=== PATIENT | female | born 1945 | race Caucasian/White ===

== ENCOUNTER 2018-06-16 16:26 | Inpatient (IN) | payer MEDICARE, OTHER ==
[~2018-06-16] VITALS: Ht 160 cm; Wt 91.7 kg
[2018-06-16] MEDS: METOPROLOL TART IMMED RELEASE 50 MG TABLET PO SCH (09:00)
[~2018-06-16 16:26] MED LIST: ACET500T68 PO; APIX5TAB3 PO; ATOR40TA59 PO; BEANO; CALC1TAB PO; CARB1TAB43 PO; DIPH25CA58 PO; DRON400T PO; FAMO10TA69 PO; FLUO25PO MC; INSU100V5 IJ; IPRA4AER IH; METO50TA6 PO; MULT-246 PO; ONDA4TAB12 PO; TRAM50TA PO
[2018-06-16 16:47] VITALS: BP 147/82
[2018-06-16] MEDS ORDERED: GABA-586 PO (17:00)
[2018-06-16] MEDS ORDERED: CYCL5TAB PO (17:00)
[2018-06-16] MEDS ORDERED: FLUT16SP21 NS (17:00)
[2018-06-16] MEDS ORDERED: AMLO5TAB2 PO (17:00)
[2018-06-16] MEDS ORDERED: TOLT2CAP PO (17:00)
[2018-06-16] MEDS ORDERED: FURO20TA3 PO (17:00)
[2018-06-16] MEDS ORDERED: [UNRECOGNIZED DRUG - CODE] PO (17:00)
[2018-06-16] MEDS ORDERED: beano PO (17:00)
[2018-06-16] MEDS ORDERED: ASPI-630 PO (17:00)
[2018-06-16] MEDS ORDERED: FLUO20CA8 PO (17:00)
[2018-06-16] MEDS ORDERED: ROPI1TAB PO (17:32)
[2018-06-16] MEDS ORDERED: ERGO500027 PO (17:32)
[2018-06-16] MEDS ORDERED: OMEG-33 PO (17:37)
[2018-06-16] MEDS ORDERED: INSU100I13 SQ (17:37)
[2018-06-16] MEDS ORDERED: RANI150C PO (17:37)
[2018-06-16] MEDS ORDERED: OMEP40CA5 PO (17:37)
[2018-06-16] MEDS ORDERED: traMADol 50 MG TABLET PO PRN (17:45)
[2018-06-16] MEDS ORDERED: NON FORMULARY ITEM (Ipratropium/Albuterol Sulfate (Combivent Respimat Inhal) 4 GM) IH PRN (17:45)
[2018-06-16] MEDS ORDERED: diphenhydrAMINE HCL 25 MG CAPSULE PO PRN (17:45)
[2018-06-16] MEDS ORDERED: BISMUTH SUBSALICYLATE 262 MG/15 ML ORAL.SUSP 236ML BOTTLE. PO PRN (17:45)
[2018-06-16 17:54] LABS: BASO # 0.1 x10^3/uL (0.0-0.2); BASO % 1 % (0-3); EOS # 0.3 x10^3/uL (0.0-0.7); EOS % 4 % (0-3); HEMATOCRIT 39.7 % (36.0-47.0); HEMOGLOBIN 13.2 g/dL (12.0-15.5); LYMPH # 1.1 x10^3/uL (1.0-4.8); LYMPH % 14 % (24-48); MEAN CORPUSCULAR HEMOGLOBIN 30 pg (25-35); MEAN CORPUSCULAR HGB CONC 33 g/dL (31-37); MEAN CORPUSCULAR VOLUME 91 fL (79-100); MONO # 0.6 x10^3/uL (0.0-1.1); MONO % 8 % (0-9); NEUT # 5.6 x10^3uL (1.8-7.7); NEUT % 73 % (31-73); PLATELET COUNT 335 x10^3/uL (140-400); RED BLOOD COUNT 4.38 x10^6/uL (3.50-5.40); RED CELL DISTRIBUTION WIDTH 14.4 % (11.5-14.5); WHITE BLOOD COUNT 7.6 x10^3/uL (4.0-11.0)
[2018-06-16] MEDS ORDERED: CYCLOBENZAPRINE 10 MG TABLET. PO PRN (18:00)
[2018-06-16] MEDS ORDERED: AZITHROMYCIN 250 MG TABLET. PO ONE (18:00)
[2018-06-16 18:13] LABS: ALBUMIN 3.2 g/dL (3.4-5.0); ALBUMIN/GLOBULIN RATIO 0.8 (1.0-1.7); CREATININE 1.1 mg/dL (0.6-1.0); GFR 48.7; POTASSIUM 4.7 mmol/L (3.5-5.1); TOTAL BILIRUBIN 0.3 mg/dL (0.2-1.0); TOTAL PROTEIN 7.1 g/dL (6.4-8.2)
[2018-06-16] MEDS ORDERED: ONDANSETRON ODT 4 MG TAB.RAPDIS PO PRN (18:15)
[2018-06-16] MEDS ORDERED: DEXTROSE 50% 25 GM / 50ML DISP.SYRIN. IV PRN (18:45)
[2018-06-16] MEDS: IPRATRPIUM/ALBUTEROL 0.5/2.5MG 3 ML NEBU. NEB SCH (20:00)
[2018-06-16 20:19] VITALS: BP 129/77
[2018-06-16 20:30] LABS: BILIRUBIN,URINE NEG (NEG); CLARITY,URINE CLEAR; COLOR,URINE YELLOW; GLUCOSE,URINE NEG (NEG); NITRITE,URINE NEG (NEG); UROBILINOGEN,URINE 0.2 mg/dL (0.2 mg/dL)
[2018-06-16 20:31] LABS: BACTERIA,URINE FEW /HPF (0-FEW); HYALINE CASTS, URINE MANY /HPF; SQUAMOUS EPITHELIAL CELL,UR MANY /LPF
[2018-06-16] MEDS: OMEGA-3 FATTY ACIDS/FISH OIL 1,000 MG CAPSULE. PO SCH (21:43)
[2018-06-16] MEDS: LACTOBACILLUS RHAMNOSUS GG 1 CAPSULE. PO SCH (21:43)
[2018-06-16] MEDS: FAMOTIDINE 20 MG TABLET PO SCH (21:43)
[2018-06-16] MEDS: OXYBUTYNIN CHLORIDE 5 MG TABLET PO SCH (21:43)
[2018-06-16] MEDS: GABAPENTIN 300 MG CAPSULE. PO SCH (21:43)
[2018-06-16] MEDS: ATORVASTATIN CALCIUM 20 MG TABLET PO SCH (21:43)
[2018-06-16] MEDS: rOPINIRole 1 MG TABLET. PO SCH (21:44)
[2018-06-16] MEDS: cefTRIAXone IV Push 1 GM VIAL. IVP SCH (21:46)
[2018-06-16] MEDS: FLUTICASONE 50MCG/NASAL SPRAY 16GM BOTTLE. NS SCH (21:58)
[2018-06-16] MEDS: INSULIN GLARGINE 300 UNITS/3 ML INSULN.PEN. SQ SCH (22:01)
[2018-06-16 23:38] VITALS: BP 118/69
[2018-06-17] MEDS: IPRATRPIUM/ALBUTEROL 0.5/2.5MG 3 ML NEBU. NEB SCH ×4 (05:04→20:43)
[2018-06-17 05:39] VITALS: BP 148/76
[2018-06-17] MEDS ORDERED: INSULIN REGULAR 100 UNIT/ML 3ML VIAL. SQ SCH (07:30)
[2018-06-17] MEDS: PANTOPRAZOLE 40 MG TABLET. PO SCH (08:18)
[2018-06-17] MEDS: ASPIRIN 81 MG TAB.CHEW PO SCH (08:18)
[2018-06-17] MEDS: INSULIN LISPRO 300 UNITS/3 ML INSULN.PEN. SQ SCH ×3 (08:27→17:15)
[2018-06-17] MEDS ORDERED: BEANO PO SCH (09:00)
[2018-06-17] MEDS: OXYBUTYNIN CHLORIDE 5 MG TABLET PO SCH ×3 (09:37→20:30)
[2018-06-17] MEDS: MULTIVITAMIN with MINERAL TABLET. PO SCH (09:37)
[2018-06-17] MEDS: FLUoxetine HCL 20 MG CAPSULE PO SCH (09:37)
[2018-06-17] MEDS: OMEGA-3 FATTY ACIDS/FISH OIL 1,000 MG CAPSULE. PO SCH ×3 (09:37→20:30)
[2018-06-17] MEDS: FLUTICASONE 50MCG/NASAL SPRAY 16GM BOTTLE. NS SCH ×2 (09:37→20:31)
[2018-06-17] MEDS: LACTOBACILLUS RHAMNOSUS GG 1 CAPSULE. PO SCH ×2 (09:37→20:30)
[2018-06-17] MEDS: GABAPENTIN 300 MG CAPSULE. PO SCH ×3 (09:38→20:31)
[2018-06-17] MEDS: amLODIPine BESYLATE 5 MG TABLET PO SCH (09:38)
[2018-06-17] MEDS: METOPROLOL TART IMMED RELEASE 50 MG TABLET PO SCH (09:38)
[2018-06-17] MEDS: methylPREDNISolone SOD SUCC PF 40 MG/ML VIAL. IV SCH ×2 (09:39→20:31)
[2018-06-17] MEDS: AZITHROMYCIN 250 MG TABLET. PO SCH (09:39)
[2018-06-17] MEDS: FUROSEMIDE 20 MG TABLET PO SCH (09:40)
[2018-06-17] MEDS: INSULIN GLARGINE 300 UNITS/3 ML INSULN.PEN. SQ SCH ×2 (09:42→20:38)
[2018-06-17] MEDS: rOPINIRole 1 MG TABLET. PO SCH ×2 (09:42→20:30)
[2018-06-17 10:50] VITALS: BP 127/77
[2018-06-17 14:43] VITALS: BP 114/65
[2018-06-17] MEDS: cefTRIAXone IV Push 1 GM VIAL. IVP SCH (18:31)
[2018-06-17 19:37] VITALS: BP 115/71
[2018-06-17] MEDS: FAMOTIDINE 20 MG TABLET PO SCH (20:30)
[2018-06-17] MEDS: ATORVASTATIN CALCIUM 20 MG TABLET PO SCH (20:30)
[2018-06-17 22:39] VITALS: BP 130/70
--- NOTE | 2018-06-18 01:14 | PN ---
DATE: 06/16/2018 SUBJECTIVE: The patient is resting fairly comfortably, in with acute exacerbation of COPD. The patient otherwise is making good progress overall, says she is breathing a little bit easier than she had. The patient's urine culture is pending as well as a sputum culture. PHYSICAL EXAMINATION: VITAL SIGNS: The patient's blood pressure 114/60, respiratory rate 18, pulse 80, afebrile. NEUROLOGIC: The patient is alert and oriented x 3. Speech fluent, spontaneous, appropriate. Cranial nerves 2-12 are grossly intact. The patient otherwise is continued to be monitored carefully. IMPRESSION: Acute exacerbation of chronic obstructive pulmonary disease, acute respiratory failure with hypoxia. PLAN: Continue with steroids, make further evaluation on her as indicated. LUIS MCKEE MD DR: ERYN/cici JOB#: [id number] / [id number]
[2018-06-18] MEDS: IPRATRPIUM/ALBUTEROL 0.5/2.5MG 3 ML NEBU. NEB SCH (05:48)
[2018-06-18 05:55] VITALS: BP 144/87
[2018-06-18 06:38] LABS: BASO % 0 % (0-3); EOS % 0 % (0-3); HEMATOCRIT 38.8 % (36.0-47.0); HEMOGLOBIN 12.8 g/dL (12.0-15.5); LYMPH # 0.4 x10^3/uL (1.0-4.8); LYMPH % 5 % (24-48); MEAN CORPUSCULAR HEMOGLOBIN 30 pg (25-35); MEAN CORPUSCULAR HGB CONC 33 g/dL (31-37); MEAN CORPUSCULAR VOLUME 92 fL (79-100); MONO # 0.3 x10^3/uL (0.0-1.1); MONO % 3 % (0-9); NEUT # 7.5 x10^3uL (1.8-7.7); NEUT % 92 % (31-73); PLATELET COUNT 285 x10^3/uL (140-400); RED BLOOD COUNT 4.25 x10^6/uL (3.50-5.40); RED CELL DISTRIBUTION WIDTH 14.2 % (11.5-14.5); WHITE BLOOD COUNT 8.2 x10^3/uL (4.0-11.0)
[2018-06-18 06:50] LABS: CALCIUM 8.9 mg/dL (8.5-10.1); CREATININE 1.1 mg/dL (0.6-1.0); GFR 48.7; POTASSIUM 4.8 mmol/L (3.5-5.1)
[2018-06-18] MEDS: GABAPENTIN 300 MG CAPSULE. PO SCH (08:38)
[2018-06-18] MEDS: OMEGA-3 FATTY ACIDS/FISH OIL 1,000 MG CAPSULE. PO SCH (08:38)
[2018-06-18] MEDS: methylPREDNISolone SOD SUCC PF 40 MG/ML VIAL. IV SCH (08:38)
[2018-06-18] MEDS: METOPROLOL TART IMMED RELEASE 50 MG TABLET PO SCH (08:38)
[2018-06-18 08:39] VITALS: BP 144/87
[2018-06-18] MEDS: OXYBUTYNIN CHLORIDE 5 MG TABLET PO SCH (08:39)
[2018-06-18] MEDS: PANTOPRAZOLE 40 MG TABLET. PO SCH (08:39)
[2018-06-18] MEDS: ASPIRIN 81 MG TAB.CHEW PO SCH (08:39)
[2018-06-18] MEDS: FUROSEMIDE 20 MG TABLET PO SCH (08:39)
[2018-06-18] MEDS: FLUoxetine HCL 20 MG CAPSULE PO SCH (08:39)
[2018-06-18] MEDS: LACTOBACILLUS RHAMNOSUS GG 1 CAPSULE. PO SCH (08:39)
[2018-06-18] MEDS: amLODIPine BESYLATE 5 MG TABLET PO SCH (08:39)
[2018-06-18] MEDS: AZITHROMYCIN 250 MG TABLET. PO SCH (08:39)
[2018-06-18] MEDS: MULTIVITAMIN with MINERAL TABLET. PO SCH (08:39)
[2018-06-18] MEDS: rOPINIRole 1 MG TABLET. PO SCH (08:43)
[2018-06-18] MEDS: INSULIN GLARGINE 300 UNITS/3 ML INSULN.PEN. SQ SCH (08:47)
[2018-06-18] MEDS: FLUTICASONE 50MCG/NASAL SPRAY 16GM BOTTLE. NS SCH (08:54)
[2018-06-18] MEDS: INSULIN LISPRO 300 UNITS/3 ML INSULN.PEN. SQ SCH (08:54)
[2018-06-18] MEDS ORDERED: DOXY100T PO (09:48)
[2018-06-18] MEDS ORDERED: IPRA3AMP29 NEB (09:48)
[2018-06-23] MEDS ORDERED: CHOLECALCIFEROL (VITAMIN D3) 50,000 UNIT CAPSULE PO SCH (09:00)
== END 2018-06-18 10:38 | disposition home or self-care (01) | DRG 189 ==
LOC: 1 SOUTH 16:26
PROVIDERS: ADMIT Family Medicine; ATTEND Family Medicine
DX: J96.01 Acute respiratory failure with hypoxia (principal); J44.1 Chronic obstructive pulmonary disease with (acute) exacerbation; J21.8 Acute bronchiolitis due to other specified organisms; J44.0 Chronic obstructive pulmonary disease with (acute) lower respiratory infection; E78.00 Pure hypercholesterolemia, unspecified; E11.9 Type 2 diabetes mellitus without complications; Z79.899 Other long term (current) drug therapy; Z90.49 Acquired absence of other specified parts of digestive tract; Z96.652 Presence of left artificial knee joint; Z82.49 Family history of ischemic heart disease and other diseases of the circulatory system; Z82.3 Family history of stroke
CPT/HCPCS: 36415; 80048; 80053; 81001; 82947; 83605; 85025; 87086; 94640; J0456; J0696; J1815; J2920; J7620

== ENCOUNTER → 2018-10-25 | Outpatient (CLI) | payer MEDICARE, OTHER ==
[~2018-10-25] MED LIST changes: +AMLO5TAB7 PO; +ASPI-630 PO; +CYCL5TAB PO; +DOXY100T PO; +ERGO500027 PO; +FLUO20CA8 PO; +FLUT16SP21 NS; +FURO20TA3 PO; +GABA-586 PO; +INSU100I13 SQ; +IPRA3AMP29 NEB; +OMEG-33 PO; +OMEP40CA5 PO; +RANI150C PO; +ROPI1TAB PO; +TOLT2CAP PO; +[UNRECOGNIZED DRUG - CODE] PO; +beano PO
--- NOTE | 2018-10-25 16:42 | RAD ---
PQRS Compliance Statement: One or more of the following individualized dose reduction techniques were utilized for this examination: 1. Automated exposure control 2. Adjustment of the mA and/or kV according to patient size 3. Use of iterative reconstruction technique CT CHEST WO CONTRAST Clinical Indication: COUGH, ASTHMA, SUSPECTED PNEUMONIA Comparison: None. TECHNIQUE: Helical CT imaging of the chest is performed without IV contrast. Findings: Incidental aberrant right subclavian artery. Atherosclerotic aortic arch. Mitral annular calcification. Coronary artery disease. Cardiac size upper limits of normal. No pericardial effusion. Tiny hiatal hernia. The central airways are patent. There is minimal atelectasis or scarring in the medial right lower lobe. There is also peribronchial thickening. Minimal scarring or atelectasis in the inferior lingula. There are mild groundglass opacities and peribronchial thickening in the basilar left lower lobe posteriorly. There are a few sub-5 mm pulmonary nodules, for example right lower lobe, image 47. There is no pleural effusion. Cholelithiasis. Postsurgical change of the stomach. No acute bone abnormality. IMPRESSION: 1. There is mild bilateral lower lobe bronchitis. There are mild groundglass opacities in the lower lobes that may be atelectasis. There is no consolidative pneumonia. 2. There are a few sub-5 mm pulmonary nodules. Consider noncontrast CT chest follow-up in 12 months per Fleischner Society guidelines. 3. Cholelithiasis. Electronically signed by: Parish Lawler MD (10/25/2018 4:38 PM) [id number]
== END | disposition home or self-care (01) ==
LOC: CT 16:02
PROVIDERS: ATTEND Family Medicine
DX: J45.991 Cough variant asthma (principal); J45.998 Other asthma; K80.20 Calculus of gallbladder without cholecystitis without obstruction; I25.10 Atherosclerotic heart disease of native coronary artery without angina pectoris; I70.0 Atherosclerosis of aorta; R91.8 Other nonspecific abnormal finding of lung field
CPT/HCPCS: 71250

== ENCOUNTER → 2018-11-24 | Outpatient (CLI) | payer MEDICARE, OTHER ==
[~2018-11-24] VITALS: Ht 160 cm; Wt 94.3 kg
[~2018-11-24] MED LIST changes: +SINCALIDE 1.89 MCG in IV NORMAL SALINE 50ML 30 ML IV ONE
--- NOTE | 2018-11-24 10:17 | RAD ---
Examination: CT chest without contrast HISTORY: History of asthma, bronchitis COMPARISON: 10/25/2018 TECHNIQUE: Axial CT images of the chest were performed without contrast. Coronal and sagittal reformats are performed Exposure: One or more of the following individualized dose reduction techniques were utilized for this examination: 1. Automated exposure control 2. Adjustment of the mA and/or kV according to patient size 3. Use of iterative reconstruction technique FINDINGS: The visualized thyroid gland grossly appears unremarkable. The central airways are patent. Moderate aortic atherosclerosis. The ascending aorta measures 3.8 cm in transverse dimension. Aberrant right subclavian artery identified coursing posterior to the esophagus. Mild cardiomegaly. Diffuse coronary artery calcifications. Mitral valve calcifications identified. No radiological significant mediastinal lymphadenopathy is identified. Minimal prominent peribronchial thickening in the bibasilar bronchial branches could be bronchitis. Minimal bibasilar lung airspace opacities likely atelectasis or infiltrates. 5 mm nodule identified in the left lower lobe of the lung is similar to prior exam. Small 5 mm nodule identified in the right lower lobe of the lung again identified. Small hiatal hernia. The visualized noncontrasted liver, spleen, adrenals grossly appears unremarkable. Partially visualized cholelithiasis. Moderate degenerative changes thoracic spine. IMPRESSION: 1. 5 mm pulmonary nodules identified in the right and left lower lobes of the lungs similar to prior exam. 2. Mild peribronchial thickening in the bilateral lower lobe probably bronchitis similar to prior exam. 3. Coronary artery calcifications. 4. Cholelithiasis. Electronically signed by: Dillan [place] MD (11/24/2018 10:13 AM) [facility]
--- NOTE | 2018-11-24 13:24 | RAD ---
Exam performed: Nuclear medicine hepatobiliary scan. History: Right upper quadrant pain, Gastroesophageal reflux with esophagitis COMPARISON: None available Following intravenous administration of 5.3 mCi of Choletec tagged with Tc, sequential gamma camera images of the right upper quadrant of the abdomen were obtained. There is prompt accumulation of radionuclide in the liver which appears to be unremarkable Prompt accumulation in the central intrahepatic biliary radicals, gallbladder, common bile duct and small bowel is noted. Patient was also infused with 1.8mcg of CCK and gallbladder ejection fraction was calculated which measures 41% (normal greater than 35%) Impression: 1. No evidence of cystic duct obstruction. 2. The gallbladder ejection fraction is 41%, which is lower limits of normal. Electronically signed by: Dillan [place] MD (11/24/2018 1:19 PM) [facility]
== END | disposition home or self-care (01) ==
LOC: CT 09:08
PROVIDERS: ATTEND Family Medicine
DX: J45.991 Cough variant asthma (principal); I25.10 Atherosclerotic heart disease of native coronary artery without angina pectoris; K80.20 Calculus of gallbladder without cholecystitis without obstruction; K21.0 Gastro-esophageal reflux disease with esophagitis; K44.9 Diaphragmatic hernia without obstruction or gangrene; I51.7 Cardiomegaly; I70.0 Atherosclerosis of aorta; R91.8 Other nonspecific abnormal finding of lung field
CPT/HCPCS: 71250; 78227; A9537; J2805

== ENCOUNTER → 2018-12-14 | Outpatient (CLI) | payer MEDICARE, OTHER ==
[~2018-12-14] MED LIST changes: -SINCALIDE 1.89 MCG in IV NORMAL SALINE 50ML 30 ML IV ONE
--- NOTE | 2018-12-14 12:13 | RAD ---
EXAM: Lumbar spine, flexion and extension. HISTORY: None. COMPARISON: None. FINDINGS: Lateral flexion and extension views of the lumbar spine are obtained. There is lumbar scoliosis, resulting in projectional endplate depressions at L1 and L2. There is no convincing acute or subacute fracture. There is grade 1 anterolisthesis of L5 on S1 which does not change between flexion and extension. There is degenerative endplate remodeling with anterior spurring throughout the visualized lower thoracic spine and upper lumbar spine. There is facet arthropathy predominantly at the lower lumbar levels. There are surgical clips within the upper abdomen. There is heavily calcified scar plaque within the aorta and iliac bifurcation. IMPRESSION: 1. Grade 1 anterolisthesis of L5 on S1, without significant change between flexion and extension. 2. Lumbar scoliosis. 3. Multilevel degenerative change throughout the thoracic and lumbar spine, described above. There is no convincing acute finding. Electronically signed by: Ginger Maldonado MD (12/14/2018 12:08 PM) [id number]
== END | disposition home or self-care (01) ==
LOC: RAD 11:42
PROVIDERS: ATTEND Anesthesiology Pain Medicine
DX: M41.86 Other forms of scoliosis, lumbar region (principal); M43.17 Spondylolisthesis, lumbosacral region; M47.895 Other spondylosis, thoracolumbar region; I70.0 Atherosclerosis of aorta; M12.88 Other specific arthropathies, not elsewhere classified, other specified site
CPT/HCPCS: 72100

== ENCOUNTER 2019-09-20 14:54 | Observation (INO) | payer MEDICARE, OTHER ==
[~2019-09-20] VITALS: Ht 160 cm; Wt 90.9 kg
[2019-09-20] VITALS (8 sets, daily range): BP systolic 127–182; BP diastolic 55–94
[~2019-09-20 14:54] MED LIST changes: +AMLO5TAB10 PO; -AMLO5TAB7 PO; +OMEP40CA45 PO; -OMEP40CA5 PO
[2019-09-20] MEDS: hydrALAZINE 20 MG/ML VIAL. IV PRN (16:02)
[2019-09-20] MEDS ORDERED: METO-239 PO (17:39)
[2019-09-20] MEDS ORDERED: DOCU-150 PO (17:39)
[2019-09-20] MEDS ORDERED: TORS20TA2 PO (17:39)
[2019-09-20] MEDS ORDERED: MECL25TA3 PO (17:39)
[2019-09-20] MEDS ORDERED: POTA10TA5 PO (17:39)
[2019-09-20] MEDS ORDERED: SIME125T49 PO (17:39)
[2019-09-20] MEDS ORDERED: ZOLP5TAB PO (17:39)
[2019-09-20] MEDS ORDERED: ONDA4TAB12 PO (17:39)
--- NOTE | 2019-09-20 17:55 | PDOC ---
PROVIDER NOTE PROVIDER NOTE PROVIDER NOTE CARDIOLOGY CONSULTATION NOTE: Reason for consultation elevated blood pressure and dyspnea Pleasant 74-year-old woman who coming into the hospital in the setting of elevated blood pressures and dyspnea. She was in her usual state of health and has been getting home health care for various ailments as noted below and due to some recent stressors including the loss of her brother she has been unable to take her medications the last 4 days. Furthermore, she's had some confusion regarding her medications including discrepancy between a antihypertensive losartan and a vasopressor agent such as Midrin which are both on her list. Her home health care nurse had astutely recognized this and actually asked her to stop both medications to find out what her blood pressures would be. Unfortunate, the patient has been under a lot of stress and has been traveling long distances to go to her brother's . She's also been pain related to her knees. Upon arrival to the hospital she was noted to have elevated blood pressure over 200 and admitted for further evaluation and treatment. The patient does appear to have a history of labile blood pressures and also follows up with [facility] cardiology routinely. Past medical history 1. Diastolic heart failure 2. Hypertension 3. Diabetes 4. Dyslipidemia Social history patient is and denies any alcohol or illicit drug use. Family history is noncontributory Allergies to adhesive tape, iodine and diabetic drugs Review systems is negative unless otherwise mentioned above in history of present illness. Medications reviewed and a stockinette in the chart Physical examination The patient appeared well nourished and normally developed. Head exam is unremarkable. No scleral icterus or corneal arcus noted. Neck is without jugular venous distension, thyromegaly, or carotid bruits. Carotid upstrokes are brisk bilaterally. Lungs are clear to auscultation and percussion. Cardiac exam reveals the PMI to be normally sized and situated. Rhythm is regular. First and second heart sounds normal. No murmurs, rubs or gallops. Abdominal exam reveals normal bowel sounds, no masses, no organomegaly and no aortic enlargement. Extremities are nonedematous and both femoral and pedal pulses are normal. Msk: No traumua Neuro: No focal deficits Diagnostic studies: EKG, cardiac enzymes negative Echocardiogram and stress testing from February 2019 are unremarkable. Impression: Labile BP due to neuropathy and stress Acute on chronic diastolic HF RECS: 81-year-old woman with multiple medical problems as noted above presents with exertional dyspnea in the setting of elevated blood pressures. She's had stressful events including the loss of her brother and due to some discrepancy regarding her blood pressure medicines were she was on losartan and midodrine for presumed orthostatic hypertension she was off of both medications over the last 4 days. Currently she is in sinus rhythm with well-controlled blood pressure. Denies any dyspnea. She does have dizziness and gait instability due to related to her knee surgeries and diabetic neuropathy 1. We will initiate her on hydralazine 25 mg 3 times a day in an effort to control her blood pressure a little easier due to her lability. 3 times a day dosing will allow her to take hydralazine as needed. Echocardiogram was grossly unremarkable. Supportive care from a cardiac standpoint. She has stress test earlier this year which did not reveal any significant obstructive pathology. NIMCO DAVID MD Sep 20, 2019 17:55
[2019-09-20] MEDS ORDERED: ZOLPIDEM 5 MG TABLET. PO PRN (19:15)
[2019-09-20] MEDS ORDERED: ONDANSETRON ODT 4 MG TAB.RAPDIS PO PRN (19:15)
[2019-09-20] MEDS ORDERED: MECLIZINE 12.5 MG TABLET. PO PRN (19:45)
[2019-09-20] MEDS: IPRATRPIUM/ALBUTEROL 0.5/2.5MG 3 ML NEBU. NEB SCH (20:00)
[2019-09-20] MEDS: rOPINIRole 1 MG TABLET. PO SCH (20:28)
[2019-09-20] MEDS: OXYBUTYNIN CHLORIDE 5 MG TABLET PO SCH (20:29)
[2019-09-20] MEDS: FLUoxetine HCL 20 MG CAPSULE PO SCH (20:29)
[2019-09-20] MEDS: PANTOPRAZOLE 40 MG TABLET. PO SCH (20:29)
[2019-09-20] MEDS: CYCLOBENZAPRINE 10 MG TABLET. PO SCH (20:29)
[2019-09-20] MEDS: diphenhydrAMINE HCL 25 MG CAPSULE PO SCH (20:29)
[2019-09-20] MEDS: GABAPENTIN 300 MG CAPSULE. PO SCH (20:30)
[2019-09-20] MEDS: traMADol 50 MG TABLET PO SCH (20:30)
[2019-09-20] MEDS: hydrALAZINE 25 MG TABLET PO SCH (20:30)
[2019-09-20] MEDS: SIMETHICONE 80 MG TAB.CHEW PO SCH (20:31)
[2019-09-20] MEDS: INSULIN GLARGINE SYRINGE. SQ SCH (20:47)
[2019-09-20] MEDS ORDERED: NON FORMULARY ITEM (Tolterodine Tartrate (Detrol La) 1 CAP) PO SCH (21:00)
[2019-09-20] MEDS ORDERED: NON FORMULARY ITEM (Ipratropium/Albuterol Sulfate (Combivent Respimat Inhal) 4 GM) IH SCH (21:00)
[2019-09-20] MEDS ORDERED: ATORVASTATIN CALCIUM 20 MG TABLET PO SCH (21:00)
[2019-09-20] MEDS ORDERED: DOCUSATE SODIUM 100 MG CAPSULE PO SCH (21:00)
[2019-09-21] MEDS ORDERED: ACETAMINOPHEN 500 MG TABLET PO PRN (00:15)
[2019-09-21] MEDS: hydrALAZINE 20 MG/ML VIAL. IV PRN (05:54)
[2019-09-21 05:57] VITALS: BP 189/88
[2019-09-21 06:33] VITALS: BP 164/86
[2019-09-21] MEDS ORDERED: ASPIRIN 81 MG TAB.CHEW ONE (07:25)
[2019-09-21] MEDS ORDERED: METOPROLOL SUCC 24HR ER 25 MG TAB.ER.24H. PO ONE (07:28)
[2019-09-21] MEDS ORDERED: TORSEMIDE 20 MG TABLET. ONE (07:28)
[2019-09-21] MEDS ORDERED: MULTIVITAMIN with MINERAL TABLET. ONE (07:29)
[2019-09-21] MEDS ORDERED: OMEGA-3 FATTY ACIDS/FISH OIL 1,000 MG CAPSULE. PO ONE (07:29)
[2019-09-21] MEDS: INSULIN GLARGINE SYRINGE. SQ SCH (07:37)
[2019-09-21] MEDS: traMADol 50 MG TABLET PO SCH (07:38)
[2019-09-21] MEDS: OXYBUTYNIN CHLORIDE 5 MG TABLET PO SCH (07:38)
[2019-09-21] MEDS: PANTOPRAZOLE 40 MG TABLET. PO SCH (07:38)
[2019-09-21] MEDS: FLUoxetine HCL 20 MG CAPSULE PO SCH (07:38)
[2019-09-21] MEDS: diphenhydrAMINE HCL 25 MG CAPSULE PO SCH (07:39)
[2019-09-21] MEDS: GABAPENTIN 300 MG CAPSULE. PO SCH (07:39)
[2019-09-21] MEDS: hydrALAZINE 25 MG TABLET PO SCH ×2 (07:39→13:19)
[2019-09-21] MEDS: CYCLOBENZAPRINE 10 MG TABLET. PO SCH (07:39)
[2019-09-21] MEDS: rOPINIRole 1 MG TABLET. PO SCH (07:39)
[2019-09-21] MEDS: SIMETHICONE 80 MG TAB.CHEW PO SCH (07:40)
[2019-09-21] MEDS ORDERED: POTASSIUM CHLORIDE 10 MEQ TABLET.ER. PO SCH (08:00)
[2019-09-21 08:10] LABS: BASO # 0.1 x10^3/uL (0.0-0.2); BASO % 1 % (0-3); EOS # 0.4 x10^3/uL (0.0-0.7); EOS % 6 % (0-3); HEMATOCRIT 40.5 % (36.0-47.0); HEMOGLOBIN 12.7 g/dL (12.0-15.5); LYMPH # 1.1 x10^3/uL (1.0-4.8); LYMPH % 15 % (24-48); MEAN CORPUSCULAR HEMOGLOBIN 27 pg (25-35); MEAN CORPUSCULAR HGB CONC 31 g/dL (31-37); MEAN CORPUSCULAR VOLUME 86 fL (79-100); MONO # 0.6 x10^3/uL (0.0-1.1); MONO % 9 % (0-9); NEUT # 5.1 x10^3uL (1.8-7.7); NEUT % 69 % (31-73); PLATELET COUNT 304 x10^3/uL (140-400); RED BLOOD COUNT 4.69 x10^6/uL (3.50-5.40); WHITE BLOOD COUNT 7.4 x10^3/uL (4.0-11.0)
--- NOTE | 2019-09-21 08:28 | PDOC ---
CARDIO Progress Notes Date & Time Date of Service DATE: 09/21/19 TIME: 08:26 Time of Evaluation 08:26 Subjective Notes No dizziness, diaphoresis, or chest pain Vitals Vitals Vital Signs Date Time Temp Pulse Resp B/P (MAP) Pulse Ox O2 Delivery O2 Flow Rate FiO2 09/21/19 07:48 Room Air 09/21/19 07:40 170/90 09/21/19 05:57 97.0 79 15 96 Weight Weight [ ] Input and Output I.O. Intake and Output 09/21/19 07:00 Intake Total 940 ml Output Total 150 ml Balance 790 ml Intake Oral 940 ml Output Stool Total 150 ml # Voids 1 Laboratory Labs Laboratory Tests Test 09/20/19 16:59 09/20/19 18:00 09/20/19 20:06 09/21/19 07:33 Glucose (Fingerstick) 217 mg/dL (70-99) 262 mg/dL (70-99) 196 mg/dL (70-99) Troponin I Quantitative < 0.017 ng/mL (0-0.055) Physical Exams HEENT: Neck Supple W Full Motion Chest: Symmetric Lungs: Clear to Auscultation Heart: S1S2, RRR Abdomen: Soft N/T Extremities: No Edema Neurology: alert, oriented, follow commands Assessment Assessment 1. Accelerated HTN; remains elevated 2. Acute on chronic diastolic HF; echo 03/03 with preserved LV systolic function 3. Hypertension 4. Diabetes, II 5. Hyperlipidemia Recommendations orthostatic vital If not orthostatic, resume low-dose losartan. Supportive care May discharge from a CV standpoint Continue outpatient BP monitoring with LOUIS TAYLOR APRN Sep 21, 2019 08:28
[2019-09-21 08:46] LABS: ALBUMIN 3.3 g/dL (3.4-5.0); ALBUMIN/GLOBULIN RATIO 0.9 (1.0-1.7); CALCIUM 9.5 mg/dL (8.5-10.1); GFR 54.1; POTASSIUM 4.6 mmol/L (3.5-5.1); TOTAL BILIRUBIN 0.4 mg/dL (0.2-1.0)
[2019-09-21] MEDS ORDERED: TORSEMIDE 20 MG TABLET. PO SCH (09:00)
[2019-09-21] MEDS ORDERED: OMEGA-3 FATTY ACIDS/FISH OIL 1,000 MG CAPSULE. PO SCH (09:00)
[2019-09-21] MEDS ORDERED: ASPIRIN 81 MG TAB.CHEW PO SCH (09:00)
[2019-09-21] MEDS ORDERED: FLU VAX QS 2019-20 (36MOS+)/PF 0.5 ML SYRINGE. VAX IM ONE (09:00)
[2019-09-21] MEDS ORDERED: METOPROLOL SUCC 24HR ER 25 MG TAB.ER.24H. PO SCH (09:00)
[2019-09-21] MEDS ORDERED: MULTIVITAMIN with MINERAL TABLET. PO SCH (09:00)
[2019-09-21] MEDS ORDERED: HYDR-2868 PO (10:38)
[2019-09-21 11:00] VITALS: BP 142/81
[2019-09-21] MEDS: IPRATRPIUM/ALBUTEROL 0.5/2.5MG 3 ML NEBU. NEB SCH (11:55)
[2019-09-21 13:14] LABS: THYROID STIM HORMONE (TSH) 3.033 uIU/mL (0.358-3.740)
[2019-09-21 13:23] VITALS: BP 164/67
[2019-09-27] MEDS ORDERED: CHOLECALCIFEROL (VITAMIN D3) 50,000 UNIT CAPSULE PO SCH (09:00)
== END 2019-09-21 14:00 | disposition home or self-care (01) ==
LOC: ICU 14:54 → INTOOBSV 14:54
PROVIDERS: ADMIT Family Medicine; ATTEND Family Medicine
DX: I16.0 Hypertensive urgency (principal); R07.89 Other chest pain; I11.0 Hypertensive heart disease with heart failure; I50.33 Acute on chronic diastolic (congestive) heart failure; F41.9 Anxiety disorder, unspecified; I48.91 Unspecified atrial fibrillation; J44.9 Chronic obstructive pulmonary disease, unspecified; I25.10 Atherosclerotic heart disease of native coronary artery without angina pectoris; F32.9 Major depressive disorder, single episode, unspecified; K21.9 Gastro-esophageal reflux disease without esophagitis; I25.2 Old myocardial infarction; E78.5 Hyperlipidemia, unspecified; E11.40 Type 2 diabetes mellitus with diabetic neuropathy, unspecified; M16.11 Unilateral primary osteoarthritis, right hip; M16.12 Unilateral primary osteoarthritis, left hip; E66.9 Obesity, unspecified; G47.30 Sleep apnea, unspecified; Z86.718 Personal history of other venous thrombosis and embolism; Z95.5 Presence of coronary angioplasty implant and graft; Z93.3 Colostomy status; Z93.2 Ileostomy status; Z99.89 Dependence on other enabling machines and devices; Z23 Encounter for immunization; Z90.49 Acquired absence of other specified parts of digestive tract; Z87.891 Personal history of nicotine dependence; Z79.4 Long term (current) use of insulin; Z79.82 Long term (current) use of aspirin; Z79.51 Long term (current) use of inhaled steroids; Z79.899 Other long term (current) drug therapy
CPT/HCPCS: 36415; 80053; 80061; 82947; 84443; 84484; 85025; 90686; 94640; 94760; 96372; 96374; 96376; 97116; 97162; 97166; G0008; G0378; G0379; J0360; J1815; J7620; Q0163; 90471

== ENCOUNTER 2019-11-14 07:25 | Inpatient (IN) | payer MEDICARE, OTHER ==
[2019-11-14] VITALS (11 sets, daily range): BP systolic 109–176; BP diastolic 46–80
[~2019-11-14] VITALS: Ht 160 cm; Wt 90.7 kg
[~2019-11-14 07:25] MED LIST changes: +DOCU-150 PO; +FLUO20CA19 PO; -FLUO20CA8 PO; +HYDR-2868 PO; +MECL-75 PO; +METO-239 PO; +POTA10TA5 PO; +SIME125T49 PO; +TORS20TA2 PO; +ZOLP5TAB PO
[2019-11-14 09:53] LABS: INFLUENZA A PATIENT NEGATIVE (NEGATIVE); INFLUENZA B PATIENT NEGATIVE (NEGATIVE)
--- NOTE | 2019-11-14 09:56 | NUR ---
Pt direct admit from [facility] of Dr Cummins. Pt brought to icu rm 4 via gurney accompanied by ems. Pt belongings checked, head to toe and vitals assessed. Unit routines given to pt.
[2019-11-14] MEDS ORDERED: MIDO5TAB4 PO (10:29)
[2019-11-14] MEDS ORDERED: LOSA50TA86 PO (10:29)
[2019-11-14] MEDS ORDERED: ONDANSETRON ODT 4 MG TAB.RAPDIS PO PRN (10:45)
[2019-11-14] MEDS ORDERED: ZOLPIDEM 5 MG TABLET. PO PRN ×2 (10:45→21:15)
[2019-11-14] MEDS: GABAPENTIN 300 MG CAPSULE. PO SCH ×2 (11:13→20:43)
[2019-11-14] MEDS: ASPIRIN 81 MG TAB.CHEW PO SCH (11:13)
[2019-11-14] MEDS: CYCLOBENZAPRINE 10 MG TABLET. PO SCH ×2 (11:13→20:45)
[2019-11-14] MEDS: diphenhydrAMINE HCL 25 MG CAPSULE PO SCH ×2 (11:14→20:45)
[2019-11-14] MEDS: LOSARTAN 50 MG TABLET. PO SCH (11:14)
[2019-11-14] MEDS: rOPINIRole 1 MG TABLET. PO SCH ×2 (11:14→20:44)
[2019-11-14] MEDS: MIDODRINE 5 MG TABLET PO SCH ×2 (11:14→18:39)
[2019-11-14] MEDS ORDERED: MECLIZINE 12.5 MG TABLET. PO PRN (11:15)
[2019-11-14] MEDS: TORSEMIDE 20 MG TABLET. PO SCH (11:15)
[2019-11-14] MEDS: traMADol 50 MG TABLET PO SCH ×2 (11:15→20:44)
[2019-11-14] MEDS ORDERED: POTASSIUM CHLORIDE 10 MEQ TABLET.ER. PO SCH (11:15)
--- NOTE | 2019-11-14 12:02 | RAD ---
EXAM: Chest, single view. HISTORY: Elevated d-dimer. COMPARISON: 11/24/2018 FINDINGS: A frontal view of the chest is obtained. There is right greater than left central predominant interstitial and alveolar infiltrate. There is no pleural effusion or pneumothorax. There is a stable prominent cardiac silhouette. There is severe degenerative change involving the right shoulder with an associated chronic right rotator cuff tear. IMPRESSION: 1. Diffuse right greater than left central predominant interstitial and alveolar infiltrate. 2. Prominent cardiac silhouette. Electronically signed by: Ginger Maldonado MD (11/14/2019 11:59 AM) [place] [id number]
[2019-11-14] MEDS: IPRATRPIUM/ALBUTEROL 0.5/2.5MG 3 ML NEBU. NEB SCH ×3 (12:04→20:00)
[2019-11-14] MEDS: MULTIVITAMIN with MINERAL TABLET. PO SCH (12:22)
[2019-11-14] MEDS: FLUoxetine HCL 20 MG CAPSULE PO SCH ×2 (12:22→20:44)
[2019-11-14] MEDS: OMEGA-3 FATTY ACIDS/FISH OIL 1,000 MG CAPSULE. PO SCH (12:23)
[2019-11-14] MEDS: SIMETHICONE 80 MG TAB.CHEW PO SCH ×2 (12:23→20:44)
[2019-11-14] MEDS: PANTOPRAZOLE 40 MG TABLET. PO SCH ×2 (12:23→20:44)
[2019-11-14] MEDS ORDERED: DEXTROSE 50% 25 GM / 50ML DISP.SYRIN. IV PRN (13:15)
[2019-11-14 13:37] LABS: CALCIUM 8.2 mg/dL (8.5-10.1); CREATININE 1.2 mg/dL (0.6-1.0); GFR 43.8; POTASSIUM 3.8 mmol/L (3.5-5.1)
--- NOTE | 2019-11-14 15:11 | RAD ---
Examination: LUNG VENT/PERFUSION SCAN(VQ) History: Elevated d-dimer, shortness of breath Comparison/Correlation: 11/14/2019 AP view of the chest Findings: The 11.4 mCi xenon-133 gas was administered for ventilation imaging. Imaging in the anterior and posterior projections was performed. Delayed washout of radiotracer compatible with COPD is present. Diminished ventilation at the left lung base is noted. suspicious corresponding finding on x-ray exam. 5.5 mCi technetium 99m MAA was intravenously administered for purposes of perfusion imaging. Imaging was performed in 8 projections. Diminished perfusion of the left lung base also seen compatible with matched defect. No Segmental perfusion defects involving the right lung on the GUTIERREZ projection are present. Notably diminished perfusion is suggested at the right lung base in the RPO projection. Impression: Mismatch defects at the right lung base. High probability for pulmonary embolism. COPD. On 11/14/2019 at 3:05 PM, results were reported to the patient's nurse Michell. Electronically signed by: Jluis Odom MD (11/14/2019 3:09 PM) [facility]
[2019-11-14] MEDS: OXYBUTYNIN CHLORIDE 5 MG TABLET PO SCH ×2 (16:02→20:45)
[2019-11-14] MEDS: ENOXAPARIN ** NOTE DOSE ** SYRINGE SQ SCH (16:02)
[2019-11-14] MEDS: INSULIN LISPRO 300 UNITS/3 ML VIAL. SQ SCH (18:43)
[2019-11-14] MEDS ORDERED: VANCOMYCIN PER PHARMACY MC PRN (19:00)
[2019-11-14] MEDS ORDERED: PIP/TAZO PER PHARMACY MC PRN (19:00)
[2019-11-14] MEDS ORDERED: VANCOMYCIN 2 GM in IV NORMAL SALINE 500ML 500 ML IV ONE (20:30)
[2019-11-14] MEDS: INSULIN GLARGINE SYRINGE. SQ SCH (20:45)
[2019-11-14] MEDS ORDERED: NON FORMULARY ITEM (Ipratropium/Albuterol Sulfate (Combivent Respimat Inhal) 4 GM) IH SCH (21:00)
[2019-11-14] MEDS ORDERED: ATORVASTATIN CALCIUM 20 MG TABLET PO SCH (21:00)
[2019-11-14] MEDS ORDERED: DOCUSATE SODIUM 100 MG CAPSULE PO SCH (21:00)
[2019-11-14] MEDS: PIPERACILLIN/TAZOBACTAM 3.375 GM in IV NORMAL SALINE 50ML 50 ML IV SCH (21:32)
[2019-11-15] VITALS (10 sets, daily range): BP systolic 109–171; BP diastolic 46–97
--- NOTE | 2019-11-15 02:56 | NUR ---
Pharmacy Vancomycin Dosing Note S:Consulted to monitor and dose vancomycin started 11/14/19. O:ONEYDA BOURGEOIS is a 74 year old F with Pneumonia, . Height: 5 feet, 3 inches Weight: 90.778445 kg [place] Body Weight: 52.40 Adjusted Body Weight: 67.44 Dosing Weight: Actual Other Antibiotics: ZOSYN LABS: Last BUN: 19 Last Creatinine: 1.2 Creatinine Clearance: 43 Last WBC: Last Procalcitonin: Tmax (past 24 hours): Microbiology: I/O: Drug Levels: Last level: on at Last dose given 11/14/19 at 2200 Vancomycin Dosing: Loading Dose: 2000 mg x1 Dosing Weight: Actual Target Trough: 15-20 A: Based on: WT AND CRCL P: 1. Begin Vancomycin 1250 mg IV q24h 2. Follow up Trough level on 11/16/19 at 2130 3. Pharmacy will continue to monitor, follow and adjust therapy as needed. RICHIE DIAZ RPH, 11/15/19 0256 Signed: 11/15/19 at 0256 by RICHIE DIAZ RPH PHA
[2019-11-15] MEDS: PIPERACILLIN/TAZOBACTAM 3.375 GM in IV NORMAL SALINE 50ML 50 ML IV SCH ×2 (05:29→13:25)
[2019-11-15] MEDS: IPRATRPIUM/ALBUTEROL 0.5/2.5MG 3 ML NEBU. NEB SCH ×2 (05:33→09:05)
[2019-11-15] MEDS: OMEGA-3 FATTY ACIDS/FISH OIL 1,000 MG CAPSULE. PO SCH (08:08)
[2019-11-15] MEDS: MULTIVITAMIN with MINERAL TABLET. PO SCH (08:08)
[2019-11-15] MEDS: traMADol 50 MG TABLET PO SCH (08:09)
[2019-11-15] MEDS: ASPIRIN 81 MG TAB.CHEW PO SCH (08:09)
[2019-11-15] MEDS: TORSEMIDE 20 MG TABLET. PO SCH (08:09)
[2019-11-15] MEDS: PANTOPRAZOLE 40 MG TABLET. PO SCH (08:10)
[2019-11-15] MEDS: SIMETHICONE 80 MG TAB.CHEW PO SCH (08:10)
[2019-11-15] MEDS: CYCLOBENZAPRINE 10 MG TABLET. PO SCH (08:10)
[2019-11-15] MEDS: diphenhydrAMINE HCL 25 MG CAPSULE PO SCH (08:10)
[2019-11-15] MEDS: FLUoxetine HCL 20 MG CAPSULE PO SCH (08:10)
[2019-11-15] MEDS: OXYBUTYNIN CHLORIDE 5 MG TABLET PO SCH ×2 (08:10→13:30)
[2019-11-15] MEDS: LOSARTAN 50 MG TABLET. PO SCH (08:11)
[2019-11-15] MEDS: GABAPENTIN 300 MG CAPSULE. PO SCH (08:11)
[2019-11-15] MEDS: MIDODRINE 5 MG TABLET PO SCH (08:11)
[2019-11-15] MEDS: ENOXAPARIN ** NOTE DOSE ** SYRINGE SQ SCH (08:12)
[2019-11-15] MEDS: INSULIN LISPRO 300 UNITS/3 ML VIAL. SQ SCH (08:19)
[2019-11-15] MEDS: rOPINIRole 1 MG TABLET. PO SCH (09:00)
--- NOTE | 2019-11-15 09:11 | NUR ---
PT dyspnic on assessment this am. Pt 90% on 5 L NC. When pt falls asleep O2 drops to 85%. PT very coarse throughout, no baseline ABG, will obtain and assess need for more aggressive type of ventilation, bipap. Pt is able to verbalize understanding of poc at this time, pt did not eat breakfast. at bedside. Champ DILLARD
[2019-11-15 09:18] LABS: BGAS PH 7.36 (7.35-7.45)
[2019-11-15] MEDS ORDERED: ACETAMINOPHEN 500 MG TABLET PO PRN (10:00)
[2019-11-15] MEDS ORDERED: DEXTROSE 50% 25 GM / 50ML DISP.SYRIN. IV PRN (10:15)
[2019-11-15 10:28] LABS: BASO % 0 % (0-3); EOS % 0 % (0-3); HEMATOCRIT 28.8 % (36.0-47.0); HEMOGLOBIN 9.2 g/dL (12.0-15.5); LYMPH # 0.3 x10^3/uL (1.0-4.8); LYMPH % 6 % (24-48); MEAN CORPUSCULAR HEMOGLOBIN 27 pg (25-35); MEAN CORPUSCULAR HGB CONC 32 g/dL (31-37); MEAN CORPUSCULAR VOLUME 84 fL (79-100); MONO # 0.4 x10^3/uL (0.0-1.1); MONO % 7 % (0-9); NEUT % 87 % (31-73); PLATELET COUNT 272 x10^3/uL (140-400); RED BLOOD COUNT 3.45 x10^6/uL (3.50-5.40); RED CELL DISTRIBUTION WIDTH 16.4 % (11.5-14.5); WHITE BLOOD COUNT 5.8 x10^3/uL (4.0-11.0)
[2019-11-15] MEDS: INSULIN GLARGINE SYRINGE. SQ SCH (10:42)
[2019-11-15 10:48] LABS: ALBUMIN 2.2 g/dL (3.4-5.0); ALBUMIN/GLOBULIN RATIO 0.6 (1.0-1.7); CALCIUM 8.2 mg/dL (8.5-10.1); CREATININE 1.1 mg/dL (0.6-1.0); GFR 48.4; POTASSIUM 3.8 mmol/L (3.5-5.1); TOTAL BILIRUBIN 0.3 mg/dL (0.2-1.0)
--- NOTE | 2019-11-15 11:12 | PN ---
DATE: SUBJECTIVE: A 74-year-old female, brought in yesterday through the [facility] because of increased shortness of breath and dyspnea. The patient was noted over here to have a positive V/Q scan with a high probability of pulmonary emboli. The patient was breathing in the 70 percentile, although with 4 liters, she is up in the 90%. The patient is feeling a little better this morning, although she still has problems with sleep apnea. She desaturated during the night, she did not bring her CPAP and apparently she does not where it is. Her lactic acid was also elevated and this presents another problem for her, and she did have an infiltrative process in her lungs and she is presently on vancomycin and piperacillin, and she was in the hospital here 2-3 weeks ago and somewhere else for some issues. So, she is on that, she is feeling a little bit better overall, discussed with the . OBJECTIVE: VITAL SIGNS: Blood pressure 170/78, respiratory rate 24, pulse 105, a low-grade temperature of 99.1, oxygen saturation 94 on 4. GENERAL: The patient is alert and oriented. LUNGS: Diminished, primarily in the right lung base. CARDIOVASCULAR: Regular sinus rhythm, tachycardic. ABDOMEN: Protuberant, soft, nontender. Multiple hernias noted. EXTREMITIES: No clubbing, cyanosis, nor edema. NEUROLOGIC: The patient was alert and oriented x 3. HOSPITAL COURSE: The patient's lactic acid has come down to 2.1. Blood sugars elevated, sliding scale and like there. Otherwise, the patient will continue to be monitored and continue on IV antibiotic therapy. IMPRESSION: Pneumonia of unspecified etiology, possibly institutional approached, acute respiratory failure, pulmonary emboli of the right lung, obesity. The patient is continued to be monitored carefully, make further evaluation on her as indicated per those results. Impression is acute respiratory failure, pneumonia, positive D-dimer with pulmonary emboli. LUIS MCKEE MD DR: ERYN/cici JOB#: [id number] / [id number]
[2019-11-15] MEDS ORDERED: INSULIN LISPRO 300 UNITS/3 ML VIAL. SQ SCH (12:00)
--- NOTE | 2019-11-15 12:13 | RAD ---
VENOUS LOWER EXT BILATERAL 11/15/2019 9:57 AM Clinical Information: History of pulmonary wasn't. Comparison: None. Technique: Multiple grayscale, color Doppler, and spectral Doppler sonographic images of the lower extremity venous structures were obtained. Findings: The right common femoral, femoral, and popliteal veins exhibit normal compression, respiratory phasicity, and augmentation. No intraluminal thrombi are identified. Color Doppler flow is demonstrated in the right posterior tibial veins. The left common femoral, femoral, and popliteal veins exhibit normal compression, respiratory phasicity, and augmentation. No intraluminal thrombi are identified. Color Doppler flow is demonstrated in the left posterior tibial veins. Greater saphenous veins are patent at the saphenofemoral junction. Impression: 1. No evidence of deep venous thrombosis. Electronically signed by: Maria Elena Rodas MD (11/15/2019 12:10 PM) [facility]
--- NOTE | 2019-11-15 12:19 | RAD ---
CHEST AP ONLY 11/15/2019 9:57 AM INDICATION: Shortness of air COMPARISON: 11/14/2019 TECHNIQUE: Portable frontal view of the chest is provided. FINDINGS: The cardiomediastinal silhouette is similar in appearance. There is increased alveolar airspace disease at the right lung base. Patchy interstitial opacities are noted at the left lung base. No pneumothorax. There may be trace left pleural effusion. Mild pulmonary vascular congestion. IMPRESSION: Worsened aeration of the lung bases. Findings may represent progression of multifocal pneumonia. Electronically signed by: Maria Elena Rodas MD (11/15/2019 12:16 PM) [facility]
--- NOTE | 2019-11-15 13:36 | NUR ---
PT more lethargic and barely arousable. Xray shows worsening multifocal pneumonia Dr Notified, RT notified will try bipap for apnea and see if improvement. Vitals all stable at this time, however, pt is on high level of O2 B Plunkett Rn
[2019-11-15] MEDS ORDERED: BUMETANIDE 1 MG/4 ML VIAL. IVP SCH (14:00)
--- NOTE | 2019-11-15 15:00 | NUR ---
Awaiting EMS arrival. PT going to [facility] room 111. Report given to JUDITH DILLARD. Champ DILLARD
--- NOTE | 2019-11-15 15:03 | NUR ---
After talking with Dr Cummins about the declining of patient he recommends transferring to [facility] ICU with pulmonology consult. Pt hesitant because pt was at [facility], however, due to pt condition she needs to go to facility closest and Dr freeman has accepted. PT placed on Bipap and ABG being repeated at this time. Pt barely responding to sternal rub. Karen DILLARD
--- NOTE | 2019-11-15 15:45 | NUR ---
Pt left via EMS on Cpap. Report given to bryson with EMS. PT is arousable and maintaining sats at 94%. Karen DILLARD
[2019-11-15 15:47] LABS: BGAS PH 7.37 (7.35-7.45)
[2019-11-15] MEDS ORDERED: PIPERACILLIN/TAZOBACTAM 3.375 GM in IV NORMAL SALINE 50ML 50 ML IV SCH (20:00)
[2019-11-15] MEDS ORDERED: LACTOBACILLUS RHAMNOSUS GG 1 CAPSULE. PO SCH (21:00)
[2019-11-15] MEDS ORDERED: VANCOMYCIN 1.25 GM in IV NORMAL SALINE 250ML 250 ML IV SCH (22:00)
[2019-11-21] MEDS ORDERED: CHOLECALCIFEROL (VITAMIN D3) 50,000 UNIT CAPSULE PO SCH (09:00)
--- NOTE | 2019-11-22 12:32 | DS ---
DATE OF DISCHARGE: 11/15/2019 HOSPITAL COURSE: The patient is a 74-year-old female came in through the [facility] originally and then was transferred over here because they could not do a V/Q scan. The patient was found to have a large pulmonary emboli as well as pneumonia of unspecified etiology. The patient was placed on IV antibiotic therapy and also anticoagulation therapy. The patient went into some respiratory distress and may have required intubation and so as a result of that, the patient was transferred to [facility] for further pulmonary consultation. ICU status upgrade from this facility. IMPRESSION: Acute respiratory failure, pneumonia of unspecified etiology, pulmonary emboli of the right lung, morbid obesity, multiple abdominal hernias, gastroparesis, ileostomy, history of appendectomy, atrial fibrillation. PLAN: The patient transferred via EMS to that facility at [place]. LUIS MCKEE MD DR: ERYN/cici JOB#: [id number] / [id number]
== END 2019-11-15 15:45 | disposition short-term general hospital (02) | DRG 177 ==
LOC: ICU 08:58 → INTOOBSV 08:58 → OBSVTOIN 09:42
PROVIDERS: ADMIT Family Medicine; ATTEND Family Medicine
PROC: 5A09357 Assistance with Respiratory Ventilation, Less than 24 Consecutive Hours, Continuous Positive Airway Pressure (ICD-10-PCS; principal; 2019-11-14)
DX: J15.6 Pneumonia due to other Gram-negative bacteria (principal); I26.99 Other pulmonary embolism without acute cor pulmonale; J96.00 Acute respiratory failure, unspecified whether with hypoxia or hypercapnia; K31.84 Gastroparesis; J15.9 Unspecified bacterial pneumonia; G47.30 Sleep apnea, unspecified; E66.01 Morbid (severe) obesity due to excess calories; Z68.35 Body mass index [BMI] 35.0-35.9, adult; Z90.89 Acquired absence of other organs; I48.91 Unspecified atrial fibrillation
CPT/HCPCS: 36415; 71045; 78582; 80048; 80053; 82550; 82803; 82947; 83605; 83880; 84484; 85025; 86713; 86738; 87804; 93970; 94640; 96374; A9540; A9558; G0379; J1650; J1815; J2543; J3370; J3490; J7040; J7620; Q0163

== ENCOUNTER → 2020-07-08 | Outpatient (CLI) | payer MEDICARE, OTHER ==
[2019-11-15 15:43] VITALS: BP 122/58
[~2020-07-08] MED LIST changes: -FLUO20CA19 PO; +FLUO20CA20 PO; +LOSA50TA86 PO; +MIDO5TAB4 PO
--- NOTE | 2020-07-08 11:50 | RAD ---
INDICATION : Reason: RUQ/RT FLANK PAIN, DM, HYPERGLYCEMIA / Spl. Instructions: / History: COMPARISON: None TECHNIQUE: Multiple ultrasound images obtained through the abdomen in grayscale and color. FINDINGS: Liver: Echogenic Gallbladder: Gallstones are visualized. IVC: Partially distended at level of liver. Common Bile Duct: Not dilated. Pancreas: Largely obscured by bowel gas. Right Kidney: Mild hydronephrosis. IMPRESSION: * Gallstone is visualized without gallbladder wall thickening or common bile duct dilation. * Mild right-sided hydronephrosis. Electronically signed by: Jayden Israel MD (07/08/2020 11:46 AM) [id number]
== END | disposition home or self-care (01) ==
LOC: US 09:07
PROVIDERS: ATTEND Family Medicine
DX: K80.20 Calculus of gallbladder without cholecystitis without obstruction (principal); K76.89 Other specified diseases of liver; N13.30 Unspecified hydronephrosis; E11.65 Type 2 diabetes mellitus with hyperglycemia
CPT/HCPCS: 76705

== ENCOUNTER 2020-09-03 20:39 | Emergency (ER) | payer MEDICARE, OTHER ==
[~2020-09-03] VITALS: Ht 160 cm; Wt 95.4 kg
[~2020-09-03 20:39] MED LIST changes: +AMLO-186 PO; -AMLO5TAB10 PO; +[UNRECOGNIZED DRUG - CODE] PO; -[UNRECOGNIZED DRUG - CODE] PO
[2020-09-03] MEDS ORDERED: IV NORMAL SALINE 1,000ML 1,000 ML IV SCH (21:04)
--- NOTE | 2020-09-03 21:20 | PHYS DOC ---
Past History Past Medical History: CAD, Depression, Diabetes, GI Bleed, High Cholesterol, Heart Disease, Hypertension Additional Past Medical Histor: crohns Past Surgical History: Colectomy Additional Past Surgical Histo: ileostomy, cardiac cath, stents placed, hernia repair Alcohol Use: None Adult General Chief Complaint Chief Complaint: HEMATEMESIS/VOMITING BLOOD HPI HPI Patient is a 75-year-old female who presents for hematemesis. Onset was approximately 2 hours prior to arrival without any known inciting event, ingestion or trauma. Nothing known makes better or worse. Patient reports mild nausea without any other symptoms. Patient cites extensive past medical history most remarkable for history of Crohn's disease with significant large intestine removal and ileostomy. She has history of GI bleed in the past. Her most recent EGD was approximately 1 year ago per patient for similar symptomology and was grossly unremarkable. She denies any history of varices or any invasive intervention such as banding etc. She does not drink alcohol, has not had any bouts of vomiting or retching prior to this evening's episode, she does admit to taking aspirin daily Review of Systems Review of Systems Fourteen body systems of review of systems have been reviewed. See HPI for pertinent positives and negative responses, other diop all other systems are negative, non-pertinent or non-contributory Current Medications Current Medications Current Medications Medications (Trade) Dose Ordered Sig/Sam Start Time Stop Time Status Last Admin Dose Admin Pantoprazole Sodium (Protonix Vial) 40 mg 1X ONCE 09/03/20 21:30 09/03/20 21:31 Sodium Chloride 1,000 ml @ 1,000 mls/hr Q1H 09/03/20 21:04 09/03/20 22:03 Allergies Allergies Allergies Coded Allergies Type Severity Reaction Last Updated Verified liraglutide Allergy Severe 09/20/19 Yes adhesive tape Allergy Intermediate 09/20/19 Yes iodine Allergy Mild Hives 04/25/14 No Physical Exam Physical Exam Constitutional: Well developed, well nourished, no acute distress, non-toxic appearance. HENT: Normocephalic, atraumatic, bilateral external ears normal, oropharynx m oist, no oral exudates, nose normal. Eyes: PERRLA, EOMI, conjunctiva normal, no discharge. Neck: Normal range of motion, no tenderness, supple, no stridor. Cardiovascular: Heart rate tachycardic, sinus rhythm, no murmurs rubs or gallops Lungs & Thorax: Bilateral breath sounds clear to auscultation Abdomen: Bowel sounds normal, soft, no tenderness, no masses, no pulsatile mas ses. Well-appearing ostomy left of midline without any skin breakdown, no obvious blood in ostomy bag. Nonsurgical abdomen, no peritoneal signs Skin: Warm, dry, no erythema, no rash. Back: No tenderness, no CVA tenderness. Extremities: No tenderness, no cyanosis, no clubbing, ROM intact, no edema. Neurologic: Alert and oriented X 3, grossly normal motor & sensory function, no focal deficits noted. Psychologic: Affect normal, judgement normal, mood normal. Current Patient Data Vital Signs Vital Signs Date Time Temp Pulse Resp B/P (MAP) Pulse Ox O2 Delivery O2 Flow Rate FiO2 09/03/20 21:00 97.6 107 16 166/115 (132) 99 Room Air Lab Results Laboratory Tests Test 09/03/20 20:49 09/03/20 20:50 09/03/20 21:40 Glucose (Fingerstick) 238 mg/dL (70-99) White Blood Count 9.0 x10^3/uL (4.0-11.0) Red Blood Count 5.18 x10^6/uL (3.50-5.40) Hemoglobin 13.5 g/dL (12.0-15.5) Hematocrit 43.5 % (36.0-47.0) Mean Corpuscular Volume 84 fL (79-100) Mean Corpuscular Hemoglobin 26 pg (25-35) Mean Corpuscular Hemoglobin Concent 31 g/dL (31-37) Red Cell Distribution Width 17.6 % (11.5-14.5) Platelet Count 372 x10^3/uL (140-400) Neutrophils (%) (Auto) 89 % (31-73) Lymphocytes (%) (Auto) 6 % (24-48) Monocytes (%) (Auto) 4 % (0-9) Eosinophils (%) (Auto) 0 % (0-3) Basophils (%) (Auto) 1 % (0-3) Neutrophils # (Auto) 8.0 x10^3uL (1.8-7.7) Lymphocytes # (Auto) 0.6 x10^3/uL (1.0-4.8) Monocytes # (Auto) 0.4 x10^3/uL (0.0-1.1) Eosinophils # (Auto) 0.0 x10^3/uL (0.0-0.7) Basophils # (Auto) 0.1 x10^3/uL (0.0-0.2) Sodium Level 136 mmol/L (136-145) Potassium Level 4.5 mmol/L (3.5-5.1) Chloride Level 98 mmol/L (98-107) Carbon Dioxide Level 25 mmol/L (21-32) Anion Gap 13 (6-14) Blood Urea Nitrogen 15 mg/dL (7-20) Creatinine 1.4 mg/dL (0.6-1.0) Estimated GFR (Cockcroft-Gault) 36.6 BUN/Creatinine Ratio 11 (6-20) Glucose Level 223 mg/dL (70-99) Calcium Level 10.4 mg/dL (8.5-10.1) Total Bilirubin 0.6 mg/dL (0.2-1.0) Aspartate Amino Transf (AST/SGOT) 38 U/L (15-37) Alanine Aminotransferase (ALT/SGPT) 29 U/L (14-59) Alkaline Phosphatase 145 U/L (46-116) Troponin I Quantitative 0.022 ng/mL (0-0.055) Total Protein 8.2 g/dL (6.4-8.2) Albumin 3.9 g/dL (3.4-5.0) Albumin/Globulin Ratio 0.9 (1.0-1.7) Lipase 34 U/L (73-393) Gastric Fluid Occult Blood Positive (NEG) EKG EKG EKG ordered and interpreted by myself at 2119 hrs. as sinus tachycardia at 108 bpm, prolonged QTC at 495 without other interval abnormalities, no axis deviation, no ischemic findings, right bundle branch block present, no STEMI Radiology/Procedures Radiology/Procedures 1 view chest radiograph read and interpreted by myself as official radiologist read pending at this time. Per my interpretation, trace left-sided pleural effusion without any other obvious surgical and/or emergent cardiopulmonary abnormalities Heart Score HEART Score for Chest Pain: HEART Score for Chest Pain Response (Comments) Value History Slighlty/Non-Suspicious 0 ECG Normal 0 Age > 65 2 Risk Factors >3 Risk Factors or Hx CAD 2 Troponin < Normal Limit 0 Total 4 Risk Factors: Risk Factors: DM, Current or recent (<one month) smoker, HTN, HLP, family history of CAD, obesity. Risk Scores: Risk Factors: DM, Current or recent (<one month) smoker, HTN, HLP, family history of CAD, obesity. Course & Med Decision Making Course & Med Decision Making Patient seen on immediate ER arrival via EMS by myself Airway patent, breathing unremarkable, patient tachycardic with other vital signs unremarkable Comprehensive history and physical exam obtained, subsequent diagnostic work-up ordered IV access obtained, 1 L IV normal saline and 40 mg IV pantoprazole administered for suspected upper GI bleed later confirmed with positive gastric testing I discussed potential need for transfer to [facility] for surgical evaluation, patient amenable to this Dr. De La Paz contacted and case discussed, he was agreeable for transfer to [facility] under his care for continued medical and potential surgical intervention I relayed this decision for transfer to patient and also patient's PCP, both were amenable. All questions and concerns addressed prior to ER transport to [facility] in stable condition Dragon Disclaimer Dragon Disclaimer This electronic medical record was generated, in whole or in part, using a voice recognition dictation system. Departure Departure: Impression: Primary Impression: Hematemesis Additional Impressions: Crohn's disease History of ileostomy Disposition: ADMITTED INPT THIS HOSP (to [facility]) Admitting Physician: Tiffani De La Paz Condition: STABLE Referrals: LUIS MCKEE MD (PCP) Problem Qualifiers EDUARDO BARAKAT DO Sep 03, 2020 21:20
[2020-09-03 21:23] LABS: CALCIUM 10.4 mg/dL (8.5-10.1); CREATININE 1.4 mg/dL (0.6-1.0); GFR 36.6; POTASSIUM 4.5 mmol/L (3.5-5.1)
[2020-09-03 21:28] LABS: ALBUMIN 3.9 g/dL (3.4-5.0); ALBUMIN/GLOBULIN RATIO 0.9 (1.0-1.7); TOTAL BILIRUBIN 0.6 mg/dL (0.2-1.0); TOTAL PROTEIN 8.2 g/dL (6.4-8.2)
[2020-09-03] MEDS ORDERED: PANTOPRAZOLE IV 40 MG VIAL. IVP ONE (21:30)
[2020-09-03 21:42] LABS: BASO # 0.1 x10^3/uL (0.0-0.2); BASO % 1 % (0-3); EOS % 0 % (0-3); HEMATOCRIT 43.5 % (36.0-47.0); HEMOGLOBIN 13.5 g/dL (12.0-15.5); LYMPH # 0.6 x10^3/uL (1.0-4.8); LYMPH % 6 % (24-48); MEAN CORPUSCULAR HEMOGLOBIN 26 pg (25-35); MEAN CORPUSCULAR HGB CONC 31 g/dL (31-37); MEAN CORPUSCULAR VOLUME 84 fL (79-100); MONO # 0.4 x10^3/uL (0.0-1.1); MONO % 4 % (0-9); NEUT % 89 % (31-73); PLATELET COUNT 372 x10^3/uL (140-400); RED BLOOD COUNT 5.18 x10^6/uL (3.50-5.40); RED CELL DISTRIBUTION WIDTH 17.6 % (11.5-14.5)
[2020-09-03 22:11] LABS: GASTRIC OB PAT POSITIVE (NEG)
--- NOTE | 2020-09-03 22:55 | RAD ---
AP chest. HISTORY: Hematemesis AP view was taken of the chest. Lungs are free of infiltrates. The aorta is tortuous with atherosclerotic change. There are no acute infiltrates. 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 IMPRESSION: 1. No acute chest disease. Electronically signed by: Wiley Boucher MD (09/03/2020 10:52 PM) [id number]
[2020-09-03 23:31] LABS: BILIRUBIN,URINE NEG (NEG); CLARITY,URINE CLEAR; COLOR,URINE YELLOW; GLUCOSE,URINE 100 mg/dL (NEG)
[2020-09-03 23:32] LABS: BACTERIA,URINE 0 /HPF (0-FEW); NITRITE,URINE NEG (NEG); RBC,URINE OCC /HPF (0-2); SQUAMOUS EPITHELIAL CELL,UR OCC /LPF; UROBILINOGEN,URINE 0.2 mg/dL (0.2 mg/dL); WBC,URINE OCC /HPF (0-4)
[2020-09-04 01:04] VITALS: BP 161/111
--- NOTE | 2020-09-04 02:59 | EKG ---
[address] [address] Test Date: 2020-09-03 Test Time: 21:15:11 Pat Name: ONEYDA BOURGEOIS Department: Room: Gender: F Director Industrial Nursing: : 1945 Requested By: EDUARDO BARAKAT Order Number: [id number] Reading MD: Measurements Intervals [place] Rate: 108 P: 90 DC: 116 QRS: 62 QRSD: 126 T: -33 QT: 366 QTc: 495 Interpretive Statements SINUS TACHYCARDIA ATRIAL PREMATURE COMPLEX(ES) RIGHT BUNDLE BRANCH BLOCK ABNORMAL ECG RI6.02 No previous ECG available for comparison
== END 2020-09-04 01:24 | disposition short-term general hospital (02) ==
LOC: ER 20:39
DX: K92.0 Hematemesis (principal); K50.90 Crohn's disease, unspecified, without complications; Z93.2 Ileostomy status; I25.10 Atherosclerotic heart disease of native coronary artery without angina pectoris; E11.9 Type 2 diabetes mellitus without complications; E78.00 Pure hypercholesterolemia, unspecified; I11.9 Hypertensive heart disease without heart failure; Z88.8 Allergy status to other drugs, medicaments and biological substances
CPT/HCPCS: 36415; 71045; 80053; 81001; 82271; 82947; 83690; 84484; 85025; 93005; 96361; 96374; 99285; C9113; J7030

== ENCOUNTER 2020-09-14 08:00 | Emergency (ER) | payer MEDICARE, OTHER ==
[~2020-09-14] VITALS: Ht 160 cm; Wt 95.4 kg
[2020-09-14 08:00] VITALS: BP 114/63
--- NOTE | 2020-09-14 09:25 | RAD ---
CT head without contrast PQRS statement: CT scans at this facility use dose reduction including either automated exposure control, iterative reconstructions, and /or weight based radiation dosing via mA and kV modification when appropriate to reduce radiation dose to as low as reasonably achievable. HISTORY: Fell and hit head. COMPARISON: CT head September 25, 2015. FINDINGS: No intracranial hemorrhage, mass, hydrocephalus, extra-axial fluid collections or infarction. No acute ischemic changes evident. Mild fluid within the inferior right mastoid air cells, additionally there is asymmetric mucosal thickening of the right nasopharynx on image 1 extending outside the [id number]. Left mastoid, orbits and bones are unremarkable. IMPRESSION: 1. No acute intracranial CT abnormality. 2. Asymmetric mucosal thickening of the right nasopharynx and asymmetric fluid within the right inferior mastoid air cells. This could indicate eustachian tube dysfunction due to an inflammatory or neoplastic process of the nasopharynx. Electronically signed by: Kaiden Steiner MD (09/14/2020 9:22 AM) [id number]
--- NOTE | 2020-09-14 09:59 | PHYS DOC ---
Past History Past Medical History: CAD, Depression, Diabetes, GI Bleed, High Cholesterol, Heart Disease, Hypertension Additional Past Medical Histor: crohns Past Surgical History: Colectomy Additional Past Surgical Histo: ileostomy, cardiac cath, stents placed, hernia repair Alcohol Use: None Adult General Chief Complaint Chief Complaint: MECHANICAL FALL HPI HPI Patient is a 75-year-old female who presents for mechanical fall. She comes via EMS. Reports being at home and ambulating when she tripped over her feet falling onto carpet floor, unsure if she hit her head, denies any loss of consciousness. Patient has no symptoms besides generalized aches and pains which are chronic for her. She admits to taking 81 mg aspirin daily. Patient reports she falls frequently at home, attributes this to her size. She is also had a long history of being on high risk medications for falls in the elderly such as Ambien and narcotics but has not had any of these recently. Denies any fever, chills, chest pain, shortness of breath, abdominal pain, nausea and vomit or urinary symptoms. Admits she has had URI-like symptoms, was recently diagnosed with sinusitis by her primary care physician and prescribed amoxicillin. She has not picked up the amoxicillin prescription from her pharmacy yet Review of Systems Review of Systems Fourteen body systems of review of systems have been reviewed. See HPI for pertinent positives and negative responses, other diop all other systems are negative, non-pertinent or non-contributory Allergies Allergies Allergies Coded Allergies Type Severity Reaction Last Updated Verified liraglutide Allergy Severe 09/20/19 Yes adhesive tape Allergy Intermediate 09/20/19 Yes iodine Allergy Mild Hives 04/25/14 No Physical Exam Physical Exam Constitutional: Well developed, well nourished, no acute distress, non-toxic appearance. Morbidly obese HENT: Normocephalic, atraumatic, bilateral external ears normal, oropharynx moist, no oral exudates, moderate postnasal drip present, moderately engorged nasal turbinates with clear rhinorrhea present, external nose normal. Eyes: PERRLA, EOMI, conjunctiva normal, no discharge. Neck: Normal range of motion, no tenderness, supple, no stridor. Cardiovascular: Heart rate regular, sinus rhythm, no murmurs rubs or gallops Lungs & Thorax: Bilateral breath sounds clear to auscultation Abdomen: Bowel sounds normal, soft, no tenderness, no masses, no pulsatile masses. Ostomy bag present from prior surgical intervention from Crohn's disease, well-appearing, no drainage and/or other signs of infection. Nonsurgical abdomen, no peritoneal signs Skin: Warm, dry, no erythema, no rash. Back: No tenderness, no CVA tenderness. Extremities: No tenderness, no cyanosis, no clubbing, ROM intact, no edema. Neurologic: Alert and oriented X 3, cranial nerves II through XII intact, normal motor & sensory function, no focal deficits noted. Psychologic: Affect normal, judgement normal, mood normal. Current Patient Data Vital Signs Vital Signs Date Time Temp Pulse Resp B/P (MAP) Pulse Ox O2 Delivery O2 Flow Rate FiO2 09/14/20 08:00 98.0 82 16 114/63 (80) 92 Room Air EKG EKG [] Radiology/Procedures Radiology/Procedures PROCEDURE: CT HEAD WO CONTRAST CT head without contrast PQRS statement: CT scans at this facility use dose reduction including either automated exposure control, iterative reconstructions, and /or weight based radiation dosing via mA and kV modification when appropriate to reduce radiation dose to as low as reasonably achievable. HISTORY: Fell and hit head. COMPARISON: CT head September 25, 2015. FINDINGS: No intracranial hemorrhage, mass, hydrocephalus, extra-axial fluid collections or infarction. No acute ischemic changes evident. Mild fluid within the inferior right mastoid air cells, additionally there is asymmetric mucosal thickening of the right nasopharynx on image 1 extending outside the [id number]. Left mastoid, orbits and bones are unremarkable. IMPRESSION: 1. No acute intracranial CT abnormality. 2. Asymmetric mucosal thickening of the right nasopharynx and asymmetric fluid within the right inferior mastoid air cells. This could indicate eustachian tube dysfunction due to an inflammatory or neoplastic process of the nasopharynx. Electronically signed by: Kaiden Steiner MD (09/14/2020 9:22 AM) [id number] Heart Score Risk Factors: Risk Factors: DM, Current or recent (<one month) smoker, HTN, HLP, family history of CAD, obesity. Risk Scores: Risk Factors: DM, Current or recent (<one month) smoker, HTN, HLP, family history of CAD, obesity. Course & Med Decision Making Course & Med Decision Making Pertinent Labs and Imaging studies reviewed. (See chart for details) Discussed most likely diagnosis of fall in elderly high risk patient with cur rent sinusitis. I discussed potential need for hospitalization for continued treatment of her sinusitis with plans to place in assisted living versus other but patient was unwilling I discussed case with patient's primary care physician, he updated me on status of her sinusitis. She has not taken prescribed amoxicillin for this yet. This is likely contributory to patient's baseline high fall risk Patient tolerating p.o. intake, and ambulatory prior to ER departure. Joint decision between myself, patient and to discharge home with close follow-up. Primary care physician reporting patient to call his office first thing Wednesday for visit. I feel this is reasonable Strict return precautions were discussed with good understanding by patient and , all questions and concerns addressed prior to ER departure in stable condition for continued supportive care, instructions to fill and start amoxicillin prescription as an directed, and to call and follow-up with primary care physician in 48 hours Ivory Disclaimer Dragon Disclaimer This electronic medical record was generated, in whole or in part, using a voice recognition dictation system. Departure Departure: Impression: Primary Impression: Fall Additional Impression: Sinusitis Disposition: 01 DC HOME SELF CARE/HOMELESS Condition: STABLE Referrals: LUIS MCKEE MD (PCP) Patient Instructions: Fall Prevention and Home Safety, Sinusitis Additional Instructions: As discussed prior to ER departure, please take previously prescribed amoxicillin for your sinus infection I discussed your presenting case today with your primary care physician, we both feel you are safe to go home with continued antibiotic therapy with a close watch of your and follow-up on Wednesday If any concerning signs or symptoms present prior to outpatient follow-up, please do not hesitate to come back for repeat evaluation Is a pleasure to take care of you and I wish you a speedy recovery Problem Qualifiers EDUARDO BARAKAT DO Sep 14, 2020 09:59
[2020-09-15] MEDS ORDERED: OMEG1CAP50 PO (16:42)
[2020-09-15] MEDS ORDERED: ZOLP5TAB PO (16:42)
[2020-09-17] MEDS ORDERED: AMOX500C PO (09:44)
[2020-09-17] MEDS ORDERED: LACT1CAP19 PO (09:44)
== END 2020-09-14 10:37 | disposition home or self-care (01) ==
LOC: ER 08:00
DX: J32.9 Chronic sinusitis, unspecified (principal); I25.10 Atherosclerotic heart disease of native coronary artery without angina pectoris; E11.9 Type 2 diabetes mellitus without complications; E78.00 Pure hypercholesterolemia, unspecified; I11.9 Hypertensive heart disease without heart failure; K50.90 Crohn's disease, unspecified, without complications; Z88.8 Allergy status to other drugs, medicaments and biological substances; W18.09XA Striking against other object with subsequent fall, initial encounter; Y93.89 Activity, other specified; Y92.89 Other specified places as the place of occurrence of the external cause; Y99.8 Other external cause status
CPT/HCPCS: 70450; 99284-25

== ENCOUNTER 2020-09-19 16:16 | Observation (INO) | payer MEDICARE, OTHER ==
[~2020-09-19] VITALS: Ht 160 cm; Wt 92.9 kg
[~2020-09-19 16:16] MED LIST changes: +AMOX500C PO; +LACT1CAP19 PO; +OMEG1CAP50 PO
--- NOTE | 2020-09-19 17:18 | PHYS DOC ---
Past History Past Medical History: CAD, COPD, Depression, Diabetes, GI Bleed, High Cholesterol, Heart Disease, Hypertension Additional Past Medical Histor: crohns Past Surgical History: Angioplasty, Colectomy Additional Past Surgical Histo: ileostomy, cardiac cath, stents placed, hernia repair Smoking: Non-smoker Alcohol Use: None General Adult EDM: Chief Complaint: WEAKNESS/GENERALIZED HPI: HPI: Patient is a 75 year old Female who presents with generalized weakness for about the last week. She has had multiple falls over the past week, and states she fell twice today due to weakness in her legs. The first fall occurred this morning as she was getting up from bed. The second was this afternoon when she fell in her bathroom. She denies hitting her head on either fall, and denies any injury or pain as result of the falls. Admits to not drinking enough water on a daily basis. She denies palpitations, chest pain, dizziness, or LOC before these incidents. She states that all of the sudden, her whole body, but especially her legs feel very weak and they give out on her. She has had previous CT imaging of her head after the falls earlier in the week to rule out acute injury. She takes only aspirin 81 mg daily due to history of cardiac stent placement, but no other blood thinners. She currently lives with her , and states it is getting harder and harder for him to care for her. She would like to be admitted so that she may qualify for stay at [facility]. Review of Systems: Review of Systems: Constitutional: Denies fever or chills Eyes: Denies redness or eye pain HENT: Denies nasal congestion or sore throat Respiratory: Denies cough or shortness of breath Cardiovascular: Denies chest pain or palpitations GI: Denies abdominal pain, nausea, or vomiting : Denies dysuria or hematuria Musculoskeletal: Reports chronic low back pain Integument: Reports dry skin, Denies rash or skin lesions Neurologic: Reports generalized weakness more pronounced in the legs b/l, reports baseline neuropathy of the feet b/l, Denies headache Complete systems were reviewed and found to be within normal limits, except as documented in this note. Allergies: Allergies: Allergies Coded Allergies Type Severity Reaction Last Updated Verified liraglutide Allergy Severe 09/20/19 Yes adhesive tape Allergy Intermediate 09/20/19 Yes iodine Allergy Mild Hives 04/25/14 No Physical Exam: PE: Constitutional: Well developed, well nourished, no acute distress, non-toxic appearance HENT: Normocephalic, atraumatic, small hematoma of the top of the scalp from a previous fall Eyes: PERRL, EOMI, conjunctiva normal, no discharge Neck: Normal range of motion, no tenderness, supple Lungs & Thorax: Crackles in base of lungs bilaterally, No respiratory distress, equal chest rise and fall, Abdomen: Soft, no tenderness, illeostomy in place and draining normally Skin: Warm, dry, no erythema, no rash Back: lumbar paraspinal muscles slightly tender to palpation, no CVA tenderness Extremities: No tenderness, ROM intact, no edema, MS 5/5 UE and LE b/l Neurologic: Alert and oriented X 3, normal motor function, normal sensory function, no focal deficits noted, CN 2-12 intact b/l Psychologic: Affect normal, judgment normal EKG: EKG: @1737 Sinus tachycardia at 102bpm, NO ST elevation, Q wave in III. RBBB, nonspecific t wave inversion II-III, avF, V2-V6, QRS 132ms, QT/QTc 364/479ms Radiology/Procedures: Radiology/Procedures: [] Heart Score: HEART Score for Chest Pain: HEART Score for Chest Pain Response (Comments) Value History Slighlty/Non-Suspicious 0 ECG Normal 0 Age > 65 2 Risk Factors >3 Risk Factors or Hx CAD 2 Total 4 Course & Med Decision Making: Course & Med Decision Making Pertinent Labs and Imaging studies reviewed. (See chart for details) Pt presented with generalized weakness that has resulted in occasional falls for about the past week. The origin of this weakness is unknown at this point, but is becoming a lingering problem and is resulting in increased difficulty of care at home with her . She expressed interest in being admitted so she may qualify for transfer to [facility]. Patient requiring admission for further evaluation and treatment. Discussed with Dr. Cummins (hospitalist) who is in agreement with admission. Discussed findings and plan with patient, who acknowledges understanding and agreement. Ivory Disclaimer: Ivory Disclaimer: This electronic medical record was generated, in whole or in part, using a voice recognition dictation system. Departure Departure: Impression: Primary Impression: Generalized weakness Additional Impression: Frequent falls Disposition: ADMITTED INPT THIS HOSP Admitting Physician: Valentín Cummins (obs) Condition: STABLE Referrals: VALENTÍN CUMMINS MD (PCP) EFRA PIZANO DO Sep 19, 2020 17:18
--- NOTE | 2020-09-19 17:43 | EKG ---
[address] [address] Test Date: 2020-09-19 Test Time: 17:37:26 Pat Name: ONEYDA BOURGEOIS Department: Room: Gender: F Insurance Verification Specialist: JAELYN : 1945 Requested By: EFRA PIZANO Order Number: [id number] Reading MD: Measurements Intervals [place] Rate: 102 P: [place]: QRS: 57 QRSD: 132 T: 256 QT: 364 QTc: 479 Interpretive Statements IRREGULAR RHYTHM, NO P-WAVE FOUND RIGHT BUNDLE BRANCH BLOCK RVH WITH REPOLARIZATION ABNORMALITY ABNORMAL ECG RI6.02 No previous ECG available for comparison
[2020-09-19] MEDS ORDERED: DEXTROSE 50% 25 GM / 50ML DISP.SYRIN. IV PRN (18:00)
[2020-09-19 18:21] LABS: CALCIUM 9.1 mg/dL (8.5-10.1); CREATININE 1.5 mg/dL (0.6-1.0); GFR 33.8; POTASSIUM 4.7 mmol/L (3.5-5.1)
[2020-09-19 18:26] LABS: BASO # 0.1 x10^3/uL (0.0-0.2); BASO % 1 % (0-3); EOS # 0.3 x10^3/uL (0.0-0.7); EOS % 4 % (0-3); HEMATOCRIT 38.4 % (36.0-47.0); HEMOGLOBIN 11.9 g/dL (12.0-15.5); LYMPH # 1.1 x10^3/uL (1.0-4.8); LYMPH % 15 % (24-48); MEAN CORPUSCULAR HEMOGLOBIN 26 pg (25-35); MEAN CORPUSCULAR HGB CONC 31 g/dL (31-37); MEAN CORPUSCULAR VOLUME 84 fL (79-100); MONO # 0.8 x10^3/uL (0.0-1.1); MONO % 11 % (0-9); NEUT # 4.8 x10^3uL (1.8-7.7); NEUT % 68 % (31-73); PLATELET COUNT 333 x10^3/uL (140-400); RED BLOOD COUNT 4.57 x10^6/uL (3.50-5.40); RED CELL DISTRIBUTION WIDTH 17.7 % (11.5-14.5); WHITE BLOOD COUNT 7.1 x10^3/uL (4.0-11.0)
[2020-09-19 18:38] LABS: ALBUMIN/GLOBULIN RATIO 0.8 (1.0-1.7); MAGNESIUM 2.6 mg/dL (1.8-2.4); TOTAL BILIRUBIN 0.3 mg/dL (0.2-1.0); TOTAL PROTEIN 6.9 g/dL (6.4-8.2)
[2020-09-19 20:47] VITALS: BP 164/87
--- NOTE | 2020-09-19 21:51 | NUR ---
Pt admitted to [facility] via EMS accompanied by ER staff. Pt ambulated from gurney to bed w/o difficulty. Pt had no complaints of pain at time of assessment. Pt was unsure of all her at home medications. , Blad[facility], was called to retrieve med list. Medications are now reconciled. POC was discussed w/ pt. Pt verbalized understanding. Pt received a box lunch and is now resting comfortably in bed.
[2020-09-19 22:44] VITALS: BP 117/75
[2020-09-20 05:07] VITALS: BP 150/86
[2020-09-20] MEDS ORDERED: FLU VACC QS 2020-21(6MOS+)/PF 0.5 ML SYRINGE. VAX IM ONE (08:00)
[2020-09-20] MEDS: INSULIN LISPRO 300 UNITS/3 ML VIAL. SQ SCH ×2 (08:00→12:00)
[2020-09-20] MEDS ORDERED: CHOL500021 PO (09:02)
[2020-09-20] MEDS ORDERED: MULT-735 PO (09:02)
[2020-09-20] MEDS ORDERED: CYCL5TAB PO (09:02)
[2020-09-20] MEDS ORDERED: DIPH25CA58 PO (09:02)
--- NOTE | 2020-09-20 10:28 | DISCH ---
DISCHARGE ORDERS DISCHARGE DATE: Sep 20, 2020 FINAL DIAGNOSIS Frequent falls, Generalized weakness CONDITION AT DISCHARGE: Stable Code Status: Full SNF STAY <30 DAYS: Yes HOSPICE: No HOSPICE EVALUATE & TREAT: No ADMIT TO LTAC: No POST DISCHARGE ORDERS: ACTIVITY ORDERS: Resume previous activity WEIGHT BEARING STATUS: No restrictions DIET AFTER DISCHARGE: ADA WOUND/INCISION CARE: No wound care needed TREATMENT/EQUIPMENT ORDERS: ADAPTIVE EQUIPMENT NEEDED: None DISCHARGE MEDICATIONS: Home Meds Reported Medications Diphenhydramine Hcl (BENADRYL) 25 Mg Capsule, 25 MG PO BID for allergies, CAP 09/20/20 Multivitamin (One-Daily Multi-Vitamin) 1 Each Tablet, 1 TAB PO DAILY for supplement, TAB 0 Refills 09/20/20 Cholecalciferol (Vitamin D3) (D3-50) 50,000 Unit Capsule, 98667 UNIT PO QM for supplement, CAP 09/20/20 Cyclobenzaprine Hcl (CYCLOBENZAPRINE HCL) 5 Mg Tablet, 5 MG PO BID for muslce relaxer, TAB 09/20/20 Zolpidem Tartrate (AMBIEN) 5 Mg Tablet, 5 MG PO QHS for insomnia 09/15/20 Index-3 Fatty Acids/Fish Oil (FISH OIL 1,000 MG SOFTGEL) 1 Each Capsule, 1 CAP PO DAILY for supplement, % 0 Refills 09/15/20 Midodrine Hcl (MIDODRINE HCL) 5 Mg Tablet, 5 MG PO BID for BP 11/14/19 Losartan Potassium (LOSARTAN POTASSIUM ) 50 Mg Tablet, 50 MG PO BID for HYPERTENSION, TAB 11/14/19 Meclizine Hcl (MECLIZINE HCL) 25 Mg Tablet, 1 TAB PO PRN Q8HRS PRN for dizziness, #30 TAB 09/20/19 Ondansetron (ONDANSETRON ODT) 4 Mg Tab.rapdis, 2 TAB PO PRN Q12HR PRN for NAUSEA, #16 TAB 09/20/19 Torsemide (TORSEMIDE) 20 Mg Tablet, 10 MG PO DAILY for water pill, TAB 09/20/19 Docusate Sodium (STOOL SOFTENER) 100 Mg Capsule, 100 MG PO HS for stooler softner, CAP 09/20/19 Simethicone (GAS RELIEF) 125 Mg Tab.chew, 125 MG PO BID for stomach bloating, TAB.CHEW 09/20/19 Potassium Chloride (KLOR-CON 10) 10 Meq Tablet.er, 8 MEQ PO DAILY for supplement, TAB.SR 09/20/19 Insulin Glargine,Hum.rec.anlog (LANTUS SOLOSTAR) 100 Unit/1 Ml Insuln.pen, 30 UNIT SQ BID for diabetes 06/16/18 Omeprazole (OMEPRAZOLE) 40 Mg Capsule.dr, 2 CAP PO BID for gerd, #30 CAP 3 Refills 06/16/18 Ropinirole Hcl (REQUIP) 1 Mg Tablet, 1 TAB PO BID, #30 TAB 2 Refills 06/16/18 Aspirin (ASPIRIN) 81 Mg Tab.chew, 81 MG PO DAILY, TAB 06/16/18 Gabapentin (GABAPENTIN ) 300 Mg Capsule, 600 MG PO BID for neuropathy, CAP 06/16/18 Fluoxetine Hcl (FLUOXETINE HCL) 20 Mg Capsule, 1 CAP PO BID for depression, #90 CAP 1 Refill 06/16/18 Tolterodine Tartrate (DETROL LA) 2 Mg Cap.er.24h, 1 CAP PO BID, #30 CAP 2 Refills 06/16/18 Ipratropium/Albuterol Sulfate (COMBIVENT RESPIMAT INHAL) 4 Gm Aer.w.adap, 4 GM IH BID for soa 04/25/14 Atorvastatin Calcium (ATORVASTATIN CALCIUM) 40 Mg Tablet, 40 MG PO HS for FOR CHOLESTEROL, #30 TAB 0 Refills 04/25/14 Tramadol Hcl (TRAMADOL HCL) 50 Mg Tablet, 50 MG PO BID for pain 04/25/14 Discontinued Reported Medications Ergocalciferol (Vitamin D2) (VITAMIN D2) 50,000 Unit Capsule, 1 CAP PO WEEKLY for supplement, #4 CAP 5 Refills 06/16/18 Multivitamin (MULTI-VITAMIN DAILY) 1 Each Tablet, 1 EACH PO DAILY 04/25/14 Cyclobenzaprine Hcl (CYCLOBENZAPRINE HCL) 5 Mg Tablet, 1 TAB PO BID for muscle relaxer, #30 TAB 06/16/18 Diphenhydramine Hcl (BENADRYL) 25 Mg Capsule, 25 MG PO BID for itching 04/25/14 LUIS MCKEE MD Sep 20, 2020 10:28
[2020-09-20 10:45] VITALS: BP 160/91
[2020-09-20] MEDS ORDERED: traMADol 50 MG TABLET PO PRN (11:15)
--- NOTE | 2020-09-20 14:16 | NUR ---
NSG NOTE; DISCHARGE REPORT CALLED TO [facility] PAPER COPY OF CHART, INCLUDING MED REC, SENT WITH PT TRAMADOL RX SENT WITH PT DISCHARGED AT 1410 VIA W/C ACCOMP BY TRANSPORT PERSONNEL [facility]
== END 2020-09-20 14:10 ==
LOC: ER 16:16 → 1 SOUTH 17:53
PROVIDERS: ADMIT Family Medicine; ATTEND Family Medicine
DX: I25.10 Atherosclerotic heart disease of native coronary artery without angina pectoris (principal); R53.1 Weakness; I10 Essential (primary) hypertension; R29.6 Repeated falls; I51.9 Heart disease, unspecified; J44.9 Chronic obstructive pulmonary disease, unspecified; E11.9 Type 2 diabetes mellitus without complications; E78.00 Pure hypercholesterolemia, unspecified; K50.90 Crohn's disease, unspecified, without complications; F32.9 Major depressive disorder, single episode, unspecified; Z98.890 Other specified postprocedural states; Z95.1 Presence of aortocoronary bypass graft; Z90.49 Acquired absence of other specified parts of digestive tract; Z95.5 Presence of coronary angioplasty implant and graft; Z79.82 Long term (current) use of aspirin; W19.XXXA Unspecified fall, initial encounter; Z79.4 Long term (current) use of insulin; Z91.81 History of falling; Y93.89 Activity, other specified; Y92.002 Bathroom of unspecified non-institutional (private) residence as the place of occurrence of the external cause; Y99.8 Other external cause status
CPT/HCPCS: 36415; 80053; 82553; 82947; 83735; 84484; 85025; 93005; 97166; 97530; 99284; G0378; G0379

== ENCOUNTER → 2020-11-05 | Outpatient (CLI) | payer MEDICARE, OTHER ==
[~2020-11-05] MED LIST changes: +CHOL500021 PO; +MULT-735 PO
--- NOTE | 2020-11-05 17:56 | RAD ---
CT maxillofacial without contrast. HISTORY: Right-sided facial swelling, fall, pain Axial CT images were obtained through the facial bones. Sagittal and coronal reconstructed images wer e reviewed. There is swelling of the parotid on the right compared to the left. There is artifacts of f the fillings in the teeth. Mandible is intact without fracture. There is arthritis in both temporom andibular joints with joint space narrowing. A facial fracture is not identified. Sinuses are clear t hroughout. There are degenerative changes and facet arthritis in the cervical spine. There is degener ative subluxation at C3-4. There is disc space narrowing at C4-5 and C5-6. Orbits appear intact. A fa cial hematomas is not identified. IMPRESSION: 1. Enlargement and mild soft tissue swelling of the right parotid with some limitations in evaluation due to artifacts off the fillings in the teeth. 2. No facial fracture noted. 3. TM joint arthritis bilaterally. 4. Degenerative change in the cervical spine with mild subluxation at C3-4. PQRS Compliance Statement: One or more of the following individualized dose reduction techniques were utilized for this examinat ion: 1. Automated exposure control 2. Adjustment of the mA and/or kV according to patient size 3. Use of iterative reconstruction technique Electronically signed by: Wiley Boucher MD (11/05/2020 5:53 PM) [facility]
== END ==
LOC: CT 17:11
PROVIDERS: ATTEND Family Medicine
DX: M26.601 Right temporomandibular joint disorder, unspecified (principal); G50.1 Atypical facial pain; M47.812 Spondylosis without myelopathy or radiculopathy, cervical region; M99.11 Subluxation complex (vertebral) of cervical region
CPT/HCPCS: 70486

== ENCOUNTER 2020-12-04 10:54 | Inpatient (IN) | payer MEDICARE, OTHER ==
[2020-12-04] VITALS (19 sets, daily range): BP systolic 97–164; BP diastolic 57–99
[~2020-12-04] VITALS: Ht 160 cm; Wt 92.5 kg
--- NOTE | 2020-12-04 11:04 | PHYS DOC ---
Past History Past Medical History: CAD, COPD, Depression, Diabetes, GI Bleed, High Cholesterol, Heart Disease, Hypertension Additional Past Medical Histor: crohns Past Surgical History: Angioplasty, Colectomy Additional Past Surgical Histo: ileostomy, cardiac cath, stents placed, hernia repair Smoking: Quit Greater Than 1 Year Alcohol Use: None Drug Use: None General Adult EDM: Chief Complaint: ALTERED MENTAL STATUS HPI: HPI: Patient is a 75 year old female with PMH of DM, HTN, COPD, and Crohns, presenting via EMS for AMS, with a home blood sugar reading of "25". Patient was then given orange juice and a glucose tablet and the blood sugar by EMS showed "27". Patient did not take her morning insulin or medications. She took her normal insulin last night with a normal dinner and had a blood sugar of 147. She does reports some nausea, headache, and bilateral lower leg pain. Reports history of chronic lower extremity pain. She reports a similar episode of low blood sugar 3 years ago. No other complaints or symptoms at this time. Review of Systems: Review of Systems: Constitutional: Denies fever or chills. AMS secondary low blood sugar Eyes: Denies redness or eye pain HENT: Denies nasal congestion or sore throat Respiratory: Denies cough or shortness of breath Cardiovascular: Denies chest pain or palpitations GI: Denies abdominal pain, nausea, or vomiting : Denies dysuria or hematuria Musculoskeletal: Reports bilateral leg pain Integument: Denies rash or skin lesions Neurologic: Reports headache and generalized weakness; denies focal weakness or sensory changes Complete systems were reviewed and found to be within normal limits, except as documented in this note. Allergies: Allergies: Allergies Coded Allergies Type Severity Reaction Last Updated Verified liraglutide Allergy Severe 09/20/19 Yes adhesive tape Allergy Intermediate 09/20/19 Yes iodine Allergy Mild Hives 04/25/14 No Physical Exam: PE: Constitutional: Well developed, well nourished, no acute distress, non-toxic appearance HENT: Normocephalic, atraumatic Eyes: PERRL, EOMI, conjunctiva normal, no discharge Neck: Normal range of motion, no tenderness, supple Lungs & Thorax: No respiratory distress, equal chest rise and fall Abdomen: Soft, no tenderness Skin: Warm, dry, no erythema, no rash Back: No tenderness, no CVA tenderness Extremities: No tenderness, ROM intact, no edema Neurologic: Alert and oriented X 3, normal motor function, normal sensory function, no focal deficits noted Psychologic: Affect normal, judgment normal EKG: EKG: Time: 1111 Impression: irregular rhythm, suggestive of A-fib, with pulse of 112. Old RBBB. QRS of 132 ms. QT/QTc is 330/452. Unchanged compared to old EKG's. Radiology/Procedures: Radiology/Procedures: PROCEDURE: CHEST AP ONLY EXAM: Chest, single view. HISTORY: Weakness. COMPARISON: 09/16/2020 FINDINGS: A frontal view of the chest is obtained. There is no infiltrate, pleural effusion or pneumothorax. The heart is normal in size. IMPRESSION: No acute pulmonary finding. Electronically signed by: Ginger Maldonado MD (12/04/2020 11:44 AM) [id number] PROCEDURE: CT HEAD WO CONTRAST EXAM: Head CT without contrast. HISTORY: Headache. Altered mental status. TECHNIQUE: Computed tomographic images of the head were obtained without contrast. *One or more of the following individualized dose reduction techniques were utilized for this examination: 1. Automated exposure control. 2. Adjustment of the mA and/or kV according to patient size. 3. Use of iterative reconstruction technique. COMPARISON: 09/15/2020. FINDINGS: There is no acute or subacute extra-axial or intraparenchymal hemorrhage. There is no mass effect or midline shift. There is no hydrocephalus. There are areas of decreased attenuation within the cerebral white matter, nonspecific and likely related to chronic small vessel disease. There are foci of gas within the left anterior maxillary soft tissues. There is evidence of lens surgery. There is orbital band keratopathy. There is mild mucosal thickening or a mucous retention cyst within the sphenoid sinus. The mastoid air cells are clear. There is no suspicious calvarial lesion. IMPRESSION: 1. No acute intracranial finding. Note is made that MRI is more sensitive for acute infarction. 2. Bilateral cerebral white matter changes, likely due to chronic small vessel disease. 3. Foci of gas within the anterior left maxillary soft tissues. This may be due to recent venous catheterization or a laceration excluded from the [id number]. Correlate with physical exam findings. Electronically signed by: Ginger Maldonado MD (12/04/2020 11:48 AM) [id number] Course & Med Decision Making: Course & Med Decision Making Pertinent Labs and Imaging studies reviewed. (See chart for details) Patient is a 75 year old female that presents to the ED for AMS secondary to blood sugar of 25. Patient also complains of headache and chronic bilateral lower extremity pain. Pain addressed. EKG with signs of A. fib RVR. Cardizem bolus and drip initiated. Labs obtained and posted to chart. Glucose improved. IV fluid hydration provided. CT head without acute process. Chest x-ray stable. Patient requiring admission for further evaluation and treatment. Discussed with Dr. Cummins (PCP) who is in agreement with admission. Discussed findings and plan with patient and family, who acknowledge understanding and agreement. Dragon Disclaimer: Dragon Disclaimer: This electronic medical record was generated, in whole or in part, using a voice recognition dictation system. Departure Departure: Impression: Primary Impression: Atrial fibrillation with RVR Additional Impression: Hypoglycemia Disposition: ADMITTED INPT THIS HOSP Admitting Physician: Luis Cummins Condition: GUARDED Referrals: LUIS CUMMINS MD (PCP) Critical Care Time Critical care time was 30 minutes which includes time at bedside, spent in discussion of patient's care with specialists and/or family members, with interpretation of laboratory and/or radiological studies and is exclusive of procedures. EFRA PIZANO DO Dec 04, 2020 11:04
[2020-12-04] MEDS ORDERED: IV NORMAL SALINE 1,000ML 1,000 ML IV ONE (11:15)
--- NOTE | 2020-12-04 11:46 | RAD ---
EXAM: Chest, single view. HISTORY: Weakness. COMPARISON: 09/16/2020 FINDINGS: A frontal view of the chest is obtained. There is no infiltrate, pleural effusion or pneumo thorax. The heart is normal in size. IMPRESSION: No acute pulmonary finding. Electronically signed by: Ginger Maldonado MD (12/04/2020 11:44 AM) [id number]
--- NOTE | 2020-12-04 11:50 | RAD ---
EXAM: Head CT without contrast. HISTORY: Headache. Altered mental status. TECHNIQUE: Computed tomographic images of the head were obtained without contrast. *One or more of the following individualized dose reduction techniques were utilized for this examina tion: 1. Automated exposure control. 2. Adjustment of the mA and/or kV according to patient size. 3. Use of iterative reconstruction technique. COMPARISON: 09/15/2020. FINDINGS: There is no acute or subacute extra-axial or intraparenchymal hemorrhage. There is no mass effect or midline shift. There is no hydrocephalus. There are areas of decreased attenuation within the cerebral white matter, nonspecific and likely rel ated to chronic small vessel disease. There are foci of gas within the left anterior maxillary soft tissues. There is evidence of lens surg todd. There is orbital band keratopathy. There is mild mucosal thickening or a mucous retention cyst w ithin the sphenoid sinus. The mastoid air cells are clear. There is no suspicious calvarial lesion. IMPRESSION: 1. No acute intracranial finding. Note is made that MRI is more sensitive for acute infarction. 2. Bilateral cerebral white matter changes, likely due to chronic small vessel disease. 3. Foci of gas within the anterior left maxillary soft tissues. This may be due to recent venous cath eterization or a laceration excluded from the [id number]. Correlate with physical exam findings. Electronically signed by: Ginger Mladonado MD (12/04/2020 11:48 AM) [id number]
[2020-12-04 11:54] LABS: BASO # 0.1 x10^3/uL (0.0-0.2); BASO % 1 % (0-3); EOS # 0.3 x10^3/uL (0.0-0.7); EOS % 3 % (0-3); HEMATOCRIT 38.7 % (36.0-47.0); HEMOGLOBIN 11.7 g/dL (12.0-15.5); LYMPH # 0.8 x10^3/uL (1.0-4.8); LYMPH % 9 % (24-48); MEAN CORPUSCULAR HEMOGLOBIN 24 pg (25-35); MEAN CORPUSCULAR HGB CONC 30 g/dL (31-37); MEAN CORPUSCULAR VOLUME 80 fL (79-100); MONO # 0.8 x10^3/uL (0.0-1.1); MONO % 10 % (0-9); NEUT # 6.2 x10^3uL (1.8-7.7); NEUT % 76 % (31-73); PLATELET COUNT 324 x10^3/uL (140-400); RED BLOOD COUNT 4.87 x10^6/uL (3.50-5.40); RED CELL DISTRIBUTION WIDTH 18.6 % (11.5-14.5); WHITE BLOOD COUNT 8.1 x10^3/uL (4.0-11.0)
[2020-12-04] MEDS ORDERED: dilTIAZem 25 MG/5 ML VIAL IVP ONE (12:00)
[2020-12-04] MEDS ORDERED: dilTIAZem VIAL 125 MG in IV NORMAL SALINE 100ML 100 ML IV PRN (12:00)
[2020-12-04] MEDS ORDERED: ASPIRIN ENTERIC COATED 325 MG TABLET.DR. PO ONE (12:00)
[2020-12-04] MEDS ORDERED: DEXTROSE 50% 25 GM / 50ML DISP.SYRIN. IV PRN (12:15)
[2020-12-04] MEDS ORDERED: ONDANSETRON PF 4 MG/2 ML VIAL. IVP PRN (12:15)
--- NOTE | 2020-12-04 14:21 | EKG ---
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
--- NOTE | 2020-12-04 14:30 | NUR ---
Pt arrived via EMS Brandi whatley/Dorian, very pleasant lady. Cardizem drip infusing at 5mg/5ml per hour. BP 155/87 HR 110-122. Spoke with Bill, he is very concerned about Kitty, fears that hes not able to care for her. He is unsure about her medications and says she manages them herself. Reports she has been very forgetful and hes not sure if shes taking the rights medications. Assured that a top case assembler will be on Elaine case and we will help with getting her the assistance or care that she qualifies for. Spoke with Placido, restarted pt metoprolol 25mg daily, attempt to titrate down gtt, hold BP meds at this time.
[2020-12-04 14:34] LABS: CLARITY,URINE CLEAR; COLOR,URINE YELLOW
[2020-12-04 14:35] LABS: BACTERIA,URINE 0 /HPF (0-FEW); BILIRUBIN,URINE NEG (NEG); GLUCOSE,URINE NEG (NEG); NITRITE,URINE NEG (NEG); UROBILINOGEN,URINE 0.2 mg/dL (0.2 mg/dL)
[2020-12-04 14:43] LABS: POTASSIUM ISTAT 4.3 mmol/L (3.5-5.0); SODIUM ISTAT 135 mmol/L (135-145)
[2020-12-04 14:45] LABS: HEMATOCRIT ISTAT 40 %; HEMOGLOBIN ISTAT 13.6 gm/dL
[2020-12-04] MEDS ORDERED: ONDANSETRON ODT 4 MG TAB.RAPDIS PO PRN (15:30)
[2020-12-04 16:30] LABS: ALBUMIN 3.2 g/dL (3.4-5.0); ALBUMIN/GLOBULIN RATIO 0.8 (1.0-1.7); ALK PHOS 125 U/L (46-116); ALT (SGPT) 36 U/L (14-59); ANION GAP 7 (6-14); AST (SGOT) 42 U/L (15-37); BLOOD UREA NITROGEN 21 mg/dL (7-20); BUN/CREATININE RATIO 16 (6-20); CALCIUM 8.6 mg/dL (8.5-10.1); CHLORIDE 100 mmol/L (98-107); CREATININE 1.3 mg/dL (0.6-1.0); GFR 39.8; GLUCOSE 127 mg/dL (70-99); MAGNESIUM 1.8 mg/dL (1.8-2.4); POTASSIUM 3.9 mmol/L (3.5-5.1); SODIUM 135 mmol/L (136-145); TOTAL BILIRUBIN 0.2 mg/dL (0.2-1.0)
[2020-12-04] MEDS ORDERED: MECLIZINE 12.5 MG TABLET. PO PRN ×2 (16:45)
[2020-12-04] MEDS ORDERED: METOPROLOL SUCC 24HR ER 25 MG TAB.ER.24H. PO SCH (17:00)
[2020-12-04] MEDS: INSULIN LISPRO 300 UNITS/3 ML VIAL. SQ SCH (17:20)
[2020-12-04 18:41] LABS: ANION GAP 5 (6-14); BLOOD UREA NITROGEN 17 mg/dL (7-20); CALCIUM 7.8 mg/dL (8.5-10.1); CHLORIDE 103 mmol/L (98-107); CREATININE 1.3 mg/dL (0.6-1.0); GFR 39.8; GLUCOSE 215 mg/dL (70-99); POTASSIUM 4.5 mmol/L (3.5-5.1); SODIUM 137 mmol/L (136-145)
[2020-12-04] MEDS: ATORVASTATIN CALCIUM 20 MG TABLET PO SCH (20:06)
[2020-12-04] MEDS: FLUoxetine HCL 20 MG CAPSULE PO SCH (20:06)
[2020-12-04] MEDS: GABAPENTIN 300 MG CAPSULE. PO SCH (20:07)
[2020-12-04] MEDS: SIMETHICONE 80 MG TAB.CHEW PO SCH (20:07)
[2020-12-04] MEDS: rOPINIRole 1 MG TABLET. PO SCH (20:07)
[2020-12-04] MEDS: OXYBUTYNIN CHLORIDE 5 MG TABLET PO SCH (20:08)
[2020-12-04] MEDS: DOCUSATE SODIUM 100 MG CAPSULE PO SCH (20:08)
[2020-12-04] MEDS: traMADol 50 MG TABLET PO SCH (20:08)
[2020-12-04] MEDS: INSULIN GLARGINE SYRINGE. SQ SCH (20:15)
[2020-12-04] MEDS ORDERED: traMADol 50 MG TABLET PO SCH (21:00)
[2020-12-04] MEDS ORDERED: MIDODRINE 5 MG TABLET PO SCH (21:00)
[2020-12-04] MEDS ORDERED: LOSARTAN 50 MG TABLET. PO SCH (21:00)
[2020-12-04] MEDS ORDERED: APIXABAN 5 MG TABLET. PO SCH (21:00)
[2020-12-05] VITALS (14 sets, daily range): BP systolic 99–151; BP diastolic 63–86
--- NOTE | 2020-12-05 07:41 | PDOC2 ---
CARDIAC CONSULT DATE OF CONSULT DOS: DATE: 12/05/20 TIME: 07:34 REASON FOR CONSULT Reason for Consult AFIB with RVR REFERRING PHYSICIAN Referring Physician Dr. Carlson SOURCE Source: Chart review, Patient HPI History of Present Illness this is a 75 yo female who presented secondary to altered mental status. Patient reports she took her insulin yesterday morning, but did not eat. Became lethargic. BS was noted at 25. Had orange juice and blood sugar only improved to 27 so EMS was called. Was noted in AFIB with RVR which prompted this consult. Does have a history of AFIB and did not take her routine medications yesterday. Follows with Dr. Sanchez, [facility]. Denies any chest pain, palpitations, dizziness, diaphoresis, or nausea/vomiting. Mentation has returned to baseline. PAST MEDICAL HISTORY Cardiovascular: AFIB, CAD, HTN, hyperipidemia Pulmonary: Other (YUNIOR) GI: GERD, Irritable bowel disease Heme/Onc: Anemia NOS, Other (DVT, PE) Psych: Depression Musculoskeletal: Osteoarthritis Renal/: Chronic renal insuff Endocrine: Diabetes PAST SURGICAL HISTORY Past Surgical History Arthroscopy (RTC repair), Cataract Removal, Other (multiple abdominal surgery including colon resection and ileostomy placement; PCI 2 yrs ago, Cardiac ablation 6 yrs ago) Past Surgical History: Appendectomy, Cholecystectomy FAMILY HISTORY Family History: Heart Disease, Stroke, Other (renal disease) SOCIAL HISTORY Smoke: No ALCOHOL: none Drugs: None Lives: with Family CURRENT MEDICATIONS Current Medications Current Medications Sodium Chloride 1,000 ml @ 1,000 mls/hr 1X ONCE IV Last administered on 12/04/20at 11:20; Start 12/04/20 at 11:15; Stop 12/04/20 at 12:14; Status DC Fentanyl Citrate (Fentanyl 2ml Vial) 25 mcg 1X ONCE IV Last administered on 12/04/20at 11:40; Start 12/04/20 at 11:30; Stop 12/04/20 at 11:34; Status DC Diltiazem HCl (Cardizem Iv Push) 10 mg 1X ONCE IVP Last administered on 12/04/20at 12:07; Start 12/04/20 at 12:00; Stop 12/04/20 at 12:02; Status DC Diltiazem HCl 125 mg/Sodium Chloride 125 ml @ 5 mls/hr CONT PRN IV SEE I/O RECORD Last administered on 12/04/20at 12:33; Start 12/04/20 at 12:00 Aspirin (Aspirin Enteric Coated) 325 mg 1X ONCE PO Last administered on 12/04/20at 12:07; Start 12/04/20 at 12:00; Stop 12/04/20 at 12:12; Status DC Ondansetron HCl (Zofran) 4 mg PRN Q4HRS PRN IVP NAUSEA/VOMITING; Start 12/04/20 at 12:15; Stop 12/05/20 at 12:14 Fentanyl Citrate (Fentanyl 2ml Vial) 50 mcg PRN Q2HR PRN IVP PAIN; Start 12/04/20 at 12:15 Insulin Human Lispro (HumaLOG) 0-5 UNITS TIDWMEALS SQ Last administered on 12/04/20at 17:20; Start 12/04/20 at 17:00 Dextrose (Dextrose 50%-Water Syringe) 12.5 gm PRN Q15MIN PRN IV SEE COMMENTS; Start 12/04/20 at 12:15 Aspirin (Aspirin Chewable) 81 mg DAILY PO ; Start 12/05/20 at 09:00 Vitamin D (Vitamin D3) 50,000 unit QM PO ; Start 12/09/20 at 16:00 Docusate Sodium (Colace) 100 mg HS PO Last administered on 12/04/20at 20:08; Start 12/04/20 at 21:00 Fluoxetine HCl (PROzac) 20 mg BID PO Last administered on 12/04/20at 20:06; Start 12/04/20 at 21:00 Gabapentin (Neurontin) 600 mg BID PO Last administered on 12/04/20at 20:07; Start 12/04/20 at 21:00 Losartan Potassium (Cozaar) 50 mg BID PO ; Start 12/04/20 at 21:00; Stop 12/04/20 at 15:28; Status DC Midodrine (Proamatine) 5 mg BID PO ; Start 12/04/20 at 21:00; Stop 12/04/20 at 15:28; Status DC Ondansetron HCl (Zofran Odt) 8 mg PRN Q12HR PRN PO NAUSEA/VOMITING; Start 12/04/20 at 15:30 Ropinirole HCl (Requip) 1 mg BID PO Last administered on 12/04/20at 20:07; Start 12/04/20 at 21:00 Torsemide (Demadex) 10 mg DAILY PO ; Start 12/05/20 at 09:00 Tramadol HCl (Ultram) 50 mg BID PO ; Start 12/04/20 at 21:00; Stop 12/04/20 at 19:26; Status DC Atorvastatin Calcium (Lipitor) 40 mg QHS PO Last administered on 12/04/20at 20:06; Start 12/04/20 at 21:00 Insulin Glargine (Lantus Syringe) 30 unit BID SQ ; Start 12/04/20 at 21:00 Meclizine HCl (Antivert) 12.5 mg PRN Q8HRS PRN PO DIZZINESS; Start 12/04/20 at 16:45; Stop 12/04/20 at 16:33; Status DC Multivitamins/ Calcium (Thera-M Plus) 1 tab DAILY PO ; Start 12/05/20 at 09:00 Pantoprazole Sodium (Protonix) 40 mg DAILYAC PO ; Start 12/05/20 at 07:30 Potassium Chloride (Klor-Con) 10 meq DAILY PO ; Start 12/05/20 at 09:00 Simethicone (Gas-X) 160 mg BID PO Last administered on 12/04/20at 20:07; Start 12/04/20 at 21:00 Oxybutynin Chloride (Ditropan) 5 mg TID PO Last administered on 12/04/20at 20:08; Start 12/04/20 at 21:00 Metoprolol Succinate (Toprol Xl) 25 mg DAILY PO Last administered on 12/04/20at 17:22; Start 12/04/20 at 17:00 Meclizine HCl (Antivert) 25 mg PRN Q8HRS PRN PO DIZZINESS; Start 12/04/20 at 16:45 Apixaban (Eliquis) 5 mg BID PO Last administered on 12/04/20at 20:07; Start 12/04/20 at 21:00 Tramadol HCl (Ultram) 100 mg BID PO Last administered on 12/04/20at 20:08; Start 12/04/20 at 21:00 Active Scripts Active Reported One-Daily Multi-Vitamin (Multivitamin) 1 Each Tablet 1 Tab PO DAILY D3-50 (Cholecalciferol (Vitamin D3)) 50,000 Unit Capsule 50,000 Unit PO QM Fish Oil 1,000 Mg Softgel ([place]-3 Fatty Acids/Fish Oil) 1 Each Capsule 1 Cap PO DAILY Midodrine Hcl 5 Mg Tablet 5 Mg PO BID Losartan Potassium (Losartan Potassium) 50 Mg Tablet 50 Mg PO BID Meclizine Hcl 25 Mg Tablet 1 Tab PO PRN Q8HRS PRN Ondansetron Odt (Ondansetron) 4 Mg Tab.rapdis 2 Tab PO PRN Q12HR PRN Torsemide 20 Mg Tablet 10 Mg PO DAILY Stool Softener (Docusate Sodium) 100 Mg Capsule 100 Mg PO HS Gas Relief (Simethicone) 125 Mg Tab.chew 125 Mg PO BID Klor-Con 10 (Potassium Chloride) 10 Meq Tablet.er 8 Meq PO DAILY Lantus Solostar (Insulin Glargine,Hum.rec.anlog) 100 Unit/1 Ml Insuln.pen 30 Unit SQ BID Omeprazole 40 Mg Capsule.dr 2 Cap PO BID Requip (Ropinirole Hcl) 1 Mg Tablet 1 Tab PO BID Aspirin 81 Mg Tab.chew 81 Mg PO DAILY Gabapentin (Gabapentin) 300 Mg Capsule 600 Mg PO BID Fluoxetine Hcl 20 Mg Capsule 1 Cap PO BID Detrol La (Tolterodine Tartrate) 2 Mg Cap.er.24h 1 Cap PO BID Combivent Respimat Inhal (Ipratropium/Albuterol Sulfate) 4 Gm Aer.w.adap 4 Gm IH BID Atorvastatin Calcium 40 Mg Tablet 40 Mg PO HS Tramadol Hcl (Tramadol HCl) 50 Mg Tablet 50 Mg PO BID ALLERGIES Allergies: Coded Allergies: liraglutide (Verified Allergy, Severe, 09/20/19) adhesive tape (Verified Allergy, Intermediate, 09/20/19) if left on too long iodine (Unverified Allergy, Mild, Hives, 04/25/14) ROS Review of Systems 14 point ROS conducted with pertinent positives noted above in HPI PHYSICAL EXAM Physical Exam General: Alert, Oriented X3, Cooperative, No acute distress HEENT: Atraumatic, Mucous membr. moist/pink Lungs: Other (diminished bases) Heart: Other (AFIB- rate 110) Abdomen: Soft Extremities: No cyanosis, No edema Skin: No breakdown, No significant lesion Neuro: Normal speech, Sensation intact Psych/Mental Status: Mental status NL, Mood NL MUSCULOSKELETAL: Osteoarthritic changes both hands VITALS Vital Signs Vital Signs Date Time Temp Pulse Resp B/P (MAP) Pulse Ox O2 Delivery O2 Flow Rate FiO2 12/05/20 07:00 95 16 148/74 (98) 99 Nasal Cannula 2.0 12/05/20 06:00 97.7 LABS LABS Laboratory Tests Test 12/04/20 10:57 12/04/20 11:05 12/04/20 11:50 12/04/20 11:51 Glucose (Fingerstick) 67 mg/dL (70-99) 196 mg/dL (70-99) White Blood Count 8.1 x10^3/uL (4.0-11.0) Red Blood Count 4.87 x10^6/uL (3.50-5.40) Hemoglobin 11.7 g/dL (12.0-15.5) Hematocrit 38.7 % (36.0-47.0) Mean Corpuscular Volume 80 fL (79-100) Mean Corpuscular Hemoglobin 24 pg (25-35) Mean Corpuscular Hemoglobin Concent 30 g/dL (31-37) Red Cell Distribution Width 18.6 % (11.5-14.5) Platelet Count 324 x10^3/uL (140-400) Neutrophils (%) (Auto) 76 % (31-73) Lymphocytes (%) (Auto) 9 % (24-48) Monocytes (%) (Auto) 10 % (0-9) Eosinophils (%) (Auto) 3 % (0-3) Basophils (%) (Auto) 1 % (0-3) Neutrophils # (Auto) 6.2 x10^3uL (1.8-7.7) Lymphocytes # (Auto) 0.8 x10^3/uL (1.0-4.8) Monocytes # (Auto) 0.8 x10^3/uL (0.0-1.1) Eosinophils # (Auto) 0.3 x10^3/uL (0.0-0.7) Basophils # (Auto) 0.1 x10^3/uL (0.0-0.2) Sodium Level 135 mmol/L (136-145) Potassium Level 3.9 mmol/L (3.5-5.1) Chloride Level 100 mmol/L (98-107) Carbon Dioxide Level mmol/L (21-32) Anion Gap 7 (6-14) mmol/L (6-14) Blood Urea Nitrogen 21 mg/dL (7-20) Creatinine 1.3 mg/dL (0.6-1.0) Estimated GFR (Cockcroft-Gault) 39.8 BUN/Creatinine Ratio 16 (6-20) Glucose Level 127 mg/dL (70-99) mg/dL (60-99) Lactic Acid Level 1.8 mmol/L (0.4-2.0) Calcium Level 8.6 mg/dL (8.5-10.1) Magnesium Level 1.8 mg/dL (1.8-2.4) Total Bilirubin 0.2 mg/dL (0.2-1.0) Aspartate Amino Transf (AST/SGOT) 42 U/L (15-37) Alanine Aminotransferase (ALT/SGPT) 36 U/L (14-59) Alkaline Phosphatase 125 U/L (46-116) Creatine Kinase 270 U/L (26-192) Creatine Kinase MB (Mass) 8.3 ng/mL (0.0-3.6) Creatine Kinase MB Relative Index 3.1 % (0-4) Troponin I Quantitative < 0.017 ng/mL (0-0.055) PZ-Nli-O-Type Natriuretic Peptide 1013 pg/mL (0-449) Total Protein 7.0 g/dL (6.4-8.2) Albumin 3.2 g/dL (3.4-5.0) Albumin/Globulin Ratio 0.8 (1.0-1.7) Bedside Hemoglobin 13.6 gm/dL Bedside Hematocrit 40 % Bedside Sodium 135 mmol/L (135-145) Bedside Potassium 4.3 mmol/L (3.5-5.0) Bedside Chloride mmol/L (98-110) Bedside Total CO2 26 mmol/L (23-32) Bedside Blood Urea Nitrogen mg/dL (8-26) Bedside Creatinine mg/dL (0.5-1.4) Bedside Ionized Calcium (Mendel) 1.16 mmol/L (1.13-1.32) Test 12/04/20 13:26 12/04/20 13:34 12/04/20 15:21 12/04/20 16:37 Urine Collection Type Unknown Urine Color Yellow Urine Clarity Clear Urine pH 5.5 Urine Specific [place] 1.020 Urine Protein Neg (NEG-TRACE) Urine Glucose (UA) Neg mg/dL (NEG) Urine Ketones (Stick) Neg mg/dL (NEG) Urine Blood Neg (NEG) Urine Nitrite Neg (NEG) Urine Bilirubin Neg (NEG) Urine Urobilinogen Dipstick 0.2 mg/dL (0.2 mg/dL) Urine Leukocyte Esterase Trace (NEG) Urine RBC 3-5 /HPF (0-2) Urine WBC 1-4 /HPF (0-4) Urine Squamous Epithelial Cells None /LPF Urine Bacteria 0 /HPF (0-FEW) Glucose (Fingerstick) 185 mg/dL (70-99) 203 mg/dL (70-99) Troponin I Quantitative < 0.017 ng/mL (0-0.055) Test 12/04/20 18:18 12/04/20 20:13 12/05/20 00:08 Sodium Level 137 mmol/L (136-145) Potassium Level 4.5 mmol/L (3.5-5.1) Chloride Level 103 mmol/L (98-107) Carbon Dioxide Level mmol/L (21-32) Anion Gap 5 (6-14) Blood Urea Nitrogen 17 mg/dL (7-20) Creatinine 1.3 mg/dL (0.6-1.0) Estimated GFR (Cockcroft-Gault) 39.8 Glucose Level 215 mg/dL (70-99) Calcium Level 7.8 mg/dL (8.5-10.1) Troponin I Quantitative < 0.017 ng/mL (0-0.055) Glucose (Fingerstick) 65 mg/dL (70-99) 183 mg/dL (70-99) ECHOCARDIOGRAM Echocardiogram <Conclusion> The left ventricular systolic function is normal and the ejection fraction is within normal range. The Ejection Fraction is 55-60%. Septal wall motion consistent with conduction abnormality. Otherwise, grossly normal wall motion. The ascending aorta is mildly dilated at 3.6 cm DATE: 09/04/20 1543 ASSESSMENT/PLAN Assessment/Plan 1. AMS in setting of profound hypoglycemia. BS 25. CT head without acute findings 2. Persistent AFIB with RVR upon arrival; secondary to missed metoprolol. off Cardizem gtt. S/p previous ablation. Echo 09/03 with preserved LV function 3. CAD s/p PCI/stent 2 [address] ago[address] with [address] Sanchez, [facility] 4. Hypertension; controlled 5. Hyperlipidemia; statin 6. Diabetes, II 7. CKD 8. H/o DVT, PE 11/02 9. H/o Crohn's Disease 10. H/o recent GIB; EGD 09/03 with gastric vascular ectasia- watermelon stomach. No OAC therapy. Has been tolerating EC ASA Recommendations Increase metoprolol to 50mg daily Add EC ASA Discontinue Eliquis secondary to #10 PPI Continue secondary prevention measures Consider outpatient LAAO procedure since she is poor meterman OAC candidate Discussed importance of medical compliance Referral to If HR controlled, may discharge from a CV standpoint and f/u with primary stone layout marker. LOUIS SANDERS APRN Dec 05, 2020 07:41
[2020-12-05] MEDS: INSULIN LISPRO 300 UNITS/3 ML VIAL. SQ SCH ×3 (08:00→17:00)
[2020-12-05] MEDS ORDERED: ASPIRIN CHEWABLE 81 MG TABLET. PO SCH (09:00)
[2020-12-05] MEDS: traMADol 50 MG TABLET PO SCH ×2 (09:00→19:53)
[2020-12-05] MEDS: INSULIN GLARGINE SYRINGE. SQ SCH ×2 (09:00→21:00)
[2020-12-05] MEDS: OXYBUTYNIN CHLORIDE 5 MG TABLET PO SCH ×3 (10:22→19:54)
[2020-12-05] MEDS: MULTIVITAMIN with MINERAL TABLET. PO SCH (10:22)
[2020-12-05] MEDS: ASPIRIN ENTERIC COATED 81 MG TABLET.DR. PO SCH (10:22)
[2020-12-05] MEDS: TORSEMIDE 20 MG TABLET. PO SCH (10:22)
[2020-12-05] MEDS: PANTOPRAZOLE 40 MG TABLET. PO SCH (10:23)
[2020-12-05] MEDS: rOPINIRole 1 MG TABLET. PO SCH ×2 (10:23→19:54)
[2020-12-05] MEDS: POTASSIUM CHLORIDE 10 MEQ TABLET.ER. PO SCH (10:23)
[2020-12-05] MEDS: METOPROLOL SUCC 24HR ER 25 MG TAB.ER.24H. PO SCH (10:23)
[2020-12-05] MEDS: GABAPENTIN 300 MG CAPSULE. PO SCH ×2 (10:24→19:53)
[2020-12-05] MEDS: SIMETHICONE 80 MG TAB.CHEW PO SCH ×2 (10:24→19:53)
[2020-12-05] MEDS: FLUoxetine HCL 20 MG CAPSULE PO SCH ×2 (10:34→19:54)
--- NOTE | 2020-12-05 18:43 | HP ---
ADMIT DATE: 12/04/2020 HISTORY OF PRESENT ILLNESS: The patient is a 75-year-old female, found basically unresponsive at home, had a blood sugar of 25. EMS came in and found it to be 27. The patient also was noted to have atrial fibrillation with rapid ventricular response. The patient was brought in through the Emergency Room and admitted to the ICU for further evaluation. She said she forgot to eat and took all her medications. PAST MEDICAL HISTORY: Extensive for heart disease, heart attack, atrial fib, coronary stent placement, DVT, sleep apnea, irritable bowel syndrome, and gastroparesis. She has an ileostomy, osteoarthritis, diabetes, depression, and blood disorders. Tetanus shots up-to-date. FAMILY HISTORY: Positive for stroke and myocardial infarction. ALLERGIES: ADHESIVE TAPE, IODINE. SOCIAL HISTORY: Denies smoking, alcohol or drug use. MEDICATIONS: Reconciliation of medication was performed, although there is some confusion as to the medication she is taking. REVIEW OF SYSTEMS: The patient presently denies any chest pain, shortness of breath, abdominal pain. Denies any melena, hematochezia, hematemesis; however, is very weakened from her low sugar of 26. PHYSICAL EXAMINATION: GENERAL: The patient is a pleasant white female, in moderate amount of distress. VITAL SIGNS: Blood pressure 99/67, respiratory rate 20, pulse 103, temperature 98.5, 2 liters at 98%. HEENT: The patient otherwise head was atraumatic, normocephalic. Eyes: PERRLA without jaundice. The mouth and throat were normal. NECK: Supple, without thyromegaly. LUNGS: Diminished throughout, but basically clear. CARDIOVASCULAR: Regular sinus rhythm. Irregularly ____ rhythm, tachy. ABDOMEN: Soft, protuberant. Ileostomy in place with a bag in place. Positive bowel sounds. EXTREMITIES: No clubbing, cyanosis, edema. NEUROLOGIC: Baseline, stable as noted. Blood sugar 27, came up to 127. LABORATORY DATA: White count 8, hemoglobin and hematocrit of 11 and 38. BUN and creatinine of 17 and 1.3. Cardiac enzymes negative. Albumin of 3.2. IMPRESSION: Severe hypoglycemia, atrial fibrillation with rapid ventricular response, chronic kidney disease stage 3, moderate protein malnutrition. The patient placed on a Cardizem drip. Cardiology saw the patient and made further adjustments. CT scan otherwise unremarkable. We will continue to monitor in the ICU for any adjustment on her medication for her AFib with RVR. LUIS MCKEE MD DR: ERYN/cici JOB#: [id number] / [id number]
--- NOTE | 2020-12-05 19:21 | NUR ---
Pt medications brought in by Bill (), Dr Cummins requested them to be sent to his office. Mechelle Garcia sent meds. Dr Cummins said he will take care of an updated med list..
[2020-12-05] MEDS: DOCUSATE SODIUM 100 MG CAPSULE PO SCH (19:53)
[2020-12-05] MEDS: ATORVASTATIN CALCIUM 20 MG TABLET PO SCH (19:54)
[2020-12-06 05:49] VITALS: BP 128/74
[2020-12-06] MEDS: rOPINIRole 1 MG TABLET. PO SCH (08:05)
[2020-12-06] MEDS: GABAPENTIN 300 MG CAPSULE. PO SCH (08:05)
[2020-12-06] MEDS: SIMETHICONE 80 MG TAB.CHEW PO SCH (08:05)
[2020-12-06] MEDS: METOPROLOL SUCC 24HR ER 25 MG TAB.ER.24H. PO SCH (08:06)
[2020-12-06] MEDS: FLUoxetine HCL 20 MG CAPSULE PO SCH (08:06)
[2020-12-06] MEDS: traMADol 50 MG TABLET PO SCH (08:06)
[2020-12-06] MEDS: POTASSIUM CHLORIDE 10 MEQ TABLET.ER. PO SCH (08:07)
[2020-12-06] MEDS: OXYBUTYNIN CHLORIDE 5 MG TABLET PO SCH (08:07)
[2020-12-06] MEDS: ASPIRIN ENTERIC COATED 81 MG TABLET.DR. PO SCH (08:07)
[2020-12-06] MEDS: TORSEMIDE 20 MG TABLET. PO SCH (08:07)
[2020-12-06] MEDS: PANTOPRAZOLE 40 MG TABLET. PO SCH (08:07)
[2020-12-06] MEDS: MULTIVITAMIN with MINERAL TABLET. PO SCH (08:07)
[2020-12-06] MEDS: INSULIN LISPRO 300 UNITS/3 ML VIAL. SQ SCH ×2 (08:16→12:08)
[2020-12-06] MEDS: INSULIN GLARGINE SYRINGE. SQ SCH (08:17)
--- NOTE | 2020-12-06 08:18 | NUR ---
MEDICATION NOTE-[facility] HELD AT THIS TIME PENDING MEDICATION CLARIFICATION. CONFUSION STILL PERSISTS TO PT ACTUAL HOME MED REGIMEN. PHYSICIAN TO CLARIFY WITH OFFICE, PATIENT, ET NURSING STAFF TODAY.
[2020-12-06 10:30] VITALS: BP 102/72
[2020-12-06] MEDS ORDERED: INSU100I11 SQ (13:55)
[2020-12-06] MEDS ORDERED: METO-239 PO (13:55)
--- NOTE | 2020-12-06 13:58 | DISCH ---
HOME HEALTH DISCHARGE/MEDS DISCHARGE INFORMATION: Discharge Date: Dec 06, 2020 Final Diagnosis: Problems Medical Problems: (1) Atrial fibrillation with RVR Status: Acute (2) Hypoglycemia Status: Acute Uncontrolled Diabetes Condition on Discharge: Stable CODE STATUS: Code Status: Full HOME HEALTH: Face to Face: I certify this patient is under my care and that I, or a nurse practitioner or physician's field administrative assistant working with me, had a face to face encounter that meets the physician face to face encounter requirements with this patient on 12/06/2020. Medical Condition(s): Dementia, DM, HTN, Other (Atrial fibrillation) Snf For: Admin/Educate Injections, Assess Cardiopulm Status, Assess & Educate Safety, Diabetic Care, Medication Management Homebound Status Met By: Extreme weakness w/ amb. POST DISCHARGE ORDERS: Activity Instructions for Disc: Activity as tolerated Weight Bearing Status after Di: No restrictions DIET AFTER DISCHARGE: ADA CHECKS AFTER DISCHARGE: Checks after discharge: Check blood press - daily, Check blood sugar, ac/hs CERTIFICATION STATEMENT: Certification Statement: Based on the above finding, I certify that this patient is confined to the home and needs intermittent half-way care, physical therapy and/or speech therapy, or continues to need occupational therapy.~ This patient is under my care, and I have initiated the establishment of the plan of care.~ This patient will be followed by myself or a community physician who will periodically review the plan of care. DISCHARGE MEDICATIONS: Home Meds Reported Medications Multivitamin (One-Daily Multi-Vitamin) 1 Each Tablet, 1 TAB PO DAILY for supplement, TAB 0 Refills 09/20/20 Cholecalciferol (Vitamin D3) (D3-50) 50,000 Unit Capsule, 66279 UNIT PO QM for supplement, CAP 09/20/20 [place]-3 Fatty Acids/Fish Oil (FISH OIL 1,000 MG SOFTGEL) 1 Each Capsule, 1 CAP PO DAILY for supplement, % 0 Refills 09/15/20 Midodrine Hcl (MIDODRINE HCL) 5 Mg Tablet, 5 MG PO BID for BP 11/14/19 Losartan Potassium (LOSARTAN POTASSIUM ) 50 Mg Tablet, 50 MG PO BID for HYPERTENSION, TAB 11/14/19 Meclizine Hcl (MECLIZINE HCL) 25 Mg Tablet, 1 TAB PO PRN Q8HRS PRN for dizziness, #30 TAB 09/20/19 Ondansetron (ONDANSETRON ODT) 4 Mg Tab.rapdis, 2 TAB PO PRN Q12HR PRN for NAUSEA, #16 TAB 09/20/19 Torsemide (TORSEMIDE) 20 Mg Tablet, 10 MG PO DAILY for water pill, TAB 09/20/19 Docusate Sodium (STOOL SOFTENER) 100 Mg Capsule, 100 MG PO HS for stooler softner, CAP 09/20/19 Simethicone (GAS RELIEF) 125 Mg Tab.chew, 125 MG PO BID for stomach bloating, TAB.CHEW 09/20/19 Potassium Chloride (KLOR-CON 10) 10 Meq Tablet.er, 8 MEQ PO DAILY for supplement, TAB.SR 09/20/19 Insulin Glargine,Hum.rec.anlog (LANTUS SOLOSTAR) 100 Unit/1 Ml Insuln.pen, 30 UNIT SQ BID for diabetes 06/16/18 Omeprazole (OMEPRAZOLE) 40 Mg Capsule.dr, 2 CAP PO BID for gerd, #30 CAP 3 Refills 06/16/18 Ropinirole Hcl (REQUIP) 1 Mg Tablet, 1 TAB PO BID, #30 TAB 2 Refills 06/16/18 Aspirin (ASPIRIN) 81 Mg Tab.chew, 81 MG PO DAILY, TAB 06/16/18 Gabapentin (GABAPENTIN ) 300 Mg Capsule, 600 MG PO BID for neuropathy, CAP 06/16/18 Fluoxetine Hcl (FLUOXETINE HCL) 20 Mg Capsule, 1 CAP PO BID for depression, #90 CAP 1 Refill 06/16/18 Tolterodine Tartrate (DETROL LA) 2 Mg Cap.er.24h, 1 CAP PO BID, #30 CAP 2 Refills 06/16/18 Ipratropium/Albuterol Sulfate (COMBIVENT RESPIMAT INHAL) 4 Gm Aer.w.adap, 4 GM IH BID for soa 04/25/14 Atorvastatin Calcium (ATORVASTATIN CALCIUM) 40 Mg Tablet, 40 MG PO HS for FOR CHOLESTEROL, #30 TAB 0 Refills 04/25/14 Tramadol Hcl (TRAMADOL HCL) 50 Mg Tablet, 50 MG PO BID for pain 04/25/14 LUIS MCKEE MD Dec 06, 2020 13:58
--- NOTE | 2020-12-06 14:19 | NUR ---
DISCHARGE NOTE-PT TO DISCHARGE TO HOME. WHEELCHAIR FOR TRANSPORT TO FRONT DOORS, WHERE WHERE SHE WILL LEAVE VIA PRIVATE VEHICLE. SHE DOES NOT REQUIRE OXYGEN OR OTHER SPECIAL EQUIPMENT. PT TO DISCHARGE WITH HOME HEALTH SERVICES, SET UP BY CASE MANAGEMENT. ALL HOME MEDICATIONS RETURNED TO PATIENT FOR DISCHARGE. PIV ET BOLT MAN DISCONTINUED FOR DC HOME. DC PAPERWORK COVERED WITH PATIENT, TO INCLUDE NEW MEDICATIONS, STOPPED MEDICATIONS, ET FOLLOW UP APPOINTMENT.
[2020-12-07 00:09] LABS: HEMOGLOBIN A1C 8.2 % (4.8-5.6)
[2020-12-09] MEDS ORDERED: CHOLECALCIFEROL (VITAMIN D3) 50,000 UNIT CAPSULE PO SCH (16:00)
== END 2020-12-06 14:50 | disposition home health service (06) | DRG 638 ==
LOC: ER 10:54 → ICU 12:00 → 1 SOUTH 12-05 13:52
PROVIDERS: ADMIT Family Medicine; ATTEND Family Medicine
DX: E11.649 Type 2 diabetes mellitus with hypoglycemia without coma (principal); I48.19 Other persistent atrial fibrillation; E44.0 Moderate protein-calorie malnutrition; K50.90 Crohn's disease, unspecified, without complications; N18.30 Chronic kidney disease, stage 3 unspecified; E11.22 Type 2 diabetes mellitus with diabetic chronic kidney disease; E11.43 Type 2 diabetes mellitus with diabetic autonomic (poly)neuropathy; E11.51 Type 2 diabetes mellitus with diabetic peripheral angiopathy without gangrene; E78.00 Pure hypercholesterolemia, unspecified; E78.5 Hyperlipidemia, unspecified; I12.9 Hypertensive chronic kidney disease with stage 1 through stage 4 chronic kidney disease, or unspecified chronic kidney disease; I25.10 Atherosclerotic heart disease of native coronary artery without angina pectoris; I25.2 Old myocardial infarction; J44.9 Chronic obstructive pulmonary disease, unspecified; Z82.3 Family history of stroke; Z82.49 Family history of ischemic heart disease and other diseases of the circulatory system; Z86.718 Personal history of other venous thrombosis and embolism; Z87.891 Personal history of nicotine dependence; Z93.2 Ileostomy status; Z95.5 Presence of coronary angioplasty implant and graft; F32.9 Major depressive disorder, single episode, unspecified; G47.33 Obstructive sleep apnea (adult) (pediatric); K21.9 Gastro-esophageal reflux disease without esophagitis; K31.819 Angiodysplasia of stomach and duodenum without bleeding; M19.90 Unspecified osteoarthritis, unspecified site; Z68.36 Body mass index [BMI] 36.0-36.9, adult; Z90.49 Acquired absence of other specified parts of digestive tract
CPT/HCPCS: 36415; 70450; 71045; 80047; 80048; 80053; 81001; 82553; 82947; 83036; 83605; 83735; 83880; 84484; 85025; 87086; 93005; 96361; 96365; 96375; 96376; J1815; J3010; J3490; 97116; 97530; 99291-25; J7030

== ENCOUNTER 2020-12-26 20:23 | Emergency (ER) | payer MEDICARE, OTHER ==
[~2020-12-26] VITALS: Ht 160 cm; Wt 90.5 kg
[~2020-12-26 20:23] MED LIST changes: +INSU100I11 SQ
[2020-12-26] MEDS ORDERED: ALBU0.63 (21:05)
[2020-12-26] MEDS ORDERED: FLUO20CA20 (21:05)
[2020-12-26] MEDS ORDERED: [UNRECOGNIZED DRUG - CODE] (21:05)
[2020-12-26] MEDS ORDERED: GABA300C8 (21:05)
[2020-12-26] MEDS ORDERED: DOCU50CA (21:05)
[2020-12-26] MEDS ORDERED: ONDA4TAB7 (21:05)
[2020-12-26] MEDS ORDERED: OMEP40CA45 (21:05)
[2020-12-26] MEDS ORDERED: IV RINGERS SOLUTION,LACTATED 1,000 ML IV SCH (21:15)
[2020-12-26] MEDS ORDERED: ONDANSETRON PF 4 MG/2 ML VIAL. IVP ONE ×2 (21:15→23:00)
--- NOTE | 2020-12-26 21:33 | PHYS DOC ---
Past History Past Medical History: CAD, COPD, Depression, Diabetes, GI Bleed, High Cholesterol, Heart Disease, Hypertension Additional Past Medical Histor: crohns (GABRIELA JIMENEZ APRN) Past Surgical History: Angioplasty, Colectomy Additional Past Surgical Histo: ileostomy, cardiac cath, stents placed, hernia repair (GABRIELA JIMENEZ APRN) Smoking: Quit Greater Than 1 Year Alcohol Use: None Drug Use: None (GABRIELA JIMENEZ APRN) General Adult EDM: Chief Complaint: NAUSEA/VOMITING/DIARRHEA HPI: HPI: Patient is a 75-year-old female who presents with nausea and vomiting for about an hour. Denies fever or recent illness. Patient states that she has history of Crohn's and has had multiple surgeries. Patient has a colostomy and ileostomy. Patient reports stool has been normal for her for today. Patient does report pain, but only when she vomits. Denies taking anything at home for nausea. (GABRIELA JIMENEZ APRN) Review of Systems: Review of Systems: Constitutional: Denies fever or chills Eyes: Denies change in visual acuity HENT: Denies nasal congestion or sore throat Respiratory: Denies cough or shortness of breath Cardiovascular: Denies chest pain or edema GI: Denies abdominal pain, reports nausea, vomiting : Denies dysuria Musculoskeletal: Denies back pain or joint pain Integument: Denies rash Neurologic: Denies headache, focal weakness or sensory changes Endocrine: Denies polyuria or polydipsia Lymphatic: Denies swollen glands Psychiatric: Denies depression or anxiety (GABRIELA JIMENEZ APRN) Current Medications: Current Meds: Current Medications Medications (Trade) Dose Ordered Sig/Sam Start Time Stop Time Status Last Admin Dose Admin Lactated Ringer's 1,000 ml @ 100 mls/hr Q10H 12/26/20 21:15 12/27/20 07:14 Ondansetron HCl (Zofran) 4 mg 1X ONCE 12/26/20 21:15 12/26/20 21:16 DC (GABRIELA JIMENEZ APRN) Allergies: Allergies: Allergies Coded Allergies Type Severity Reaction Last Updated Verified liraglutide Allergy Severe 12/26/20 Yes adhesive tape Allergy Intermediate 09/20/19 Yes iodine Allergy Mild Hives 04/25/14 No (GABRIELA JIMENEZ APRN) Physical Exam: PE: Constitutional: Well developed, well nourished, no acute distress, non-toxic appearance. [] HENT: Normocephalic, atraumatic, bilateral external ears normal, oropharynx moist, no oral exudates, nose normal. [] Eyes: PERRLA, EOMI, conjunctiva normal, no discharge. [] Neck: Normal range of motion, no tenderness, supple, no stridor. [] Cardiovascular:Heart rate regular rhythm, no murmur [] Lungs & Thorax: Bilateral breath sounds clear to auscultation [] Abdomen: Bowel sounds normal, soft, no tenderness, no masses, no pulsatile ma sses. [] Skin: Warm, dry, no erythema, no rash. [] Back: No tenderness, no CVA tenderness. [] Extremities: No tenderness, no cyanosis, no clubbing, ROM intact, no edema. [] Neurologic: Alert and oriented X 3, normal motor function, normal sensory function, no focal deficits noted. [] Psychologic: Affect normal, judgement normal, mood normal. [] (GABRIELA JIMENEZ APRN) Current Patient Data: Vital Signs: Vital Signs Date Time Temp Pulse Resp B/P (MAP) Pulse Ox O2 Delivery O2 Flow Rate FiO2 12/26/20 20:49 98.0 99 18 166/99 (121) 93 Room Air (GABRIELA JIMENEZ APRN) EKG: EKG: [] (GABRIELA JIMENEZ APRN) Radiology/Procedures: Radiology/Procedures: [] (GABRIELA JIMENEZ APRN) Radiology/Procedures: mpression: Status post total colectomy. There is a left-sided ileostomy with loops of small bowel which are seen within the ileostomy associated hernia. There is no CT evidence of incarceration or obstruction. End impression (LYSSA VILLARREAL MD) Heart Score: Risk Factors: Risk Factors: DM, Current or recent (<one month) smoker, HTN, HLP, family history of CAD, obesity. Risk Scores: Score 0 - 3: 2.5% MACE over next 6 weeks - Discharge Home Score 4 - 6: 20.3% MACE over next 6 weeks - Admit for Clinical Observation Score 7 - 10: 72.7% MACE over next 6 weeks - Early Invasive Strategies (GABRIELA JIMENEZ APRN) Course & Med Decision Making: Course & Med Decision Making Pertinent Labs and Imaging studies reviewed. (See chart for details) []Patient is a 75-year-old female who presents with nausea and vomiting for about an hour. Denies fever or recent illness. Patient states that she has history of Crohn's and has had multiple surgeries. Patient has a colostomy and ileostomy. Patient reports stool has been normal for her for today. Patient does report pain but only when she vomits. Denies taking anything at home for nausea. Transfer of care to (GABRIELA JIMENEZ APRN) Course & Med Decision Making Patient's care was handed off to me at evening checkout by AUTOMATED LOGISTICS SPECIALIST. On reassessment patient stated she was feeling a little better after fluid resuscitation and antiemetics. Patient still remaining in atrial fibrillation with a rate of 113 but with no chest pain, shortness of breath or lightheadedness. Patient states she still is a little nauseous but had not thrown up in a while and does feel a little better. However There is a left-sided ileostomy with loops of small bowel which are seen within the ileostomy associated hernia. There is no CT evidence of incarceration or obstruction. Even though there is no CT evidence of obstruction patient appears clinically obstructed with continued nausea despite multiple rounds of antiemetics and fluid. Discussed all findings with family and advised admission. Family indicated that they get all of their care at [facility] both with her GI doctor, and her extended insurance clerk. States she was due to see him in a few weeks anyway for LEONARD, and possible ablation versus anticoagulation. States that they had to be admitted they would prefer to be admitted there. Called admit transfer team who agreed with assessment and accepted patient to their hospital. (LYSSA VILLARREAL MD) Dragon Disclaimer: Dragon Disclaimer: This electronic medical record was generated, in whole or in part, using a voice recognition dictation system. (GABRIELA JIMENEZ APRN) Departure Departure: Referrals: LUIS MCKEE MD (PCP) GABRIELA JIMENEZ APRN Dec 26, 2020 21:33 LYSSA VILLARREAL MD Dec 27, 2020 01:15
[2020-12-26 21:52] LABS: BASO % 0 % (0-3); EOS # 0.2 x10^3/uL (0.0-0.7); EOS % 2 % (0-3); HEMATOCRIT 39.5 % (36.0-47.0); HEMOGLOBIN 11.9 g/dL (12.0-15.5); LYMPH # 0.4 x10^3/uL (1.0-4.8); LYMPH % 4 % (24-48); MEAN CORPUSCULAR HEMOGLOBIN 24 pg (25-35); MEAN CORPUSCULAR HGB CONC 30 g/dL (31-37); MEAN CORPUSCULAR VOLUME 79 fL (79-100); MONO # 0.8 x10^3/uL (0.0-1.1); MONO % 7 % (0-9); NEUT % 87 % (31-73); PLATELET COUNT 279 x10^3/uL (140-400); RED BLOOD COUNT 5.02 x10^6/uL (3.50-5.40); RED CELL DISTRIBUTION WIDTH 18.1 % (11.5-14.5); WHITE BLOOD COUNT 10.4 x10^3/uL (4.0-11.0)
[2020-12-26 22:00] LABS: CALCIUM 8.6 mg/dL (8.5-10.1); CREATININE 1.7 mg/dL (0.6-1.0); GFR 29.2; POTASSIUM 4.3 mmol/L (3.5-5.1)
[2020-12-26 22:06] LABS: ALBUMIN 3.1 g/dL (3.4-5.0); ALBUMIN/GLOBULIN RATIO 0.9 (1.0-1.7); DIRECT BILIRUBIN 0.1 mg/dL (0.0-0.2); TOTAL BILIRUBIN 0.4 mg/dL (0.2-1.0); TOTAL PROTEIN 6.4 g/dL (6.4-8.2)
--- NOTE | 2020-12-26 22:17 | RAD ---
Abdominal and Pelvis CT, Without Contrast: History: Reason: Abd pain with cramping, nausea, vomiting Hx:Ileostomy, colectomy / Spl. Instruction s: / History: Comparison: None. Procedure: Axial images are obtained of the abdomen and pelvis, without IV or oral contrast. Oral Contrast: No Findings: There is evidence of total colectomy. There is an ileostomy on the left. There are multiple loops of small bowel with in the ileostomy defect. There is fat-containing inguinal canal hernias. Evaluation of solid organs is limited without contrast. There are small stones in the gallbladder but no wall thickening or surrounding inflammation. Linear opacities in lung bases are likely discoid atelectasis. Liver: Normal. Spleen: Normal. Pancreas: Atrophic. Adrenal Glands: Normal. Kidneys: Normal. There is no free air or free fluid. There is no lymphadenopathy. The urinary bladder appears normal. There is no pericolonic inflammation identified. Impression: Status post total colectomy. There is a left-sided ileostomy with loops of small bowel which are seen within the ileostomy associated hernia. There is no CT evidence of incarceration or obstruction. End impression PQRS Compliance Statement: One or more of the following individualized dose reduction techniques were utilized for this examinat ion: 1. Automated exposure control 2. Adjustment of the mA and/or kV according to patient size 3. Use of iterative reconstruction technique Electronically signed by: Fletcher Jones III, MD (12/26/2020 10:15 PM) [facility]
[2020-12-26] MEDS ORDERED: METOCLOPRAMIDE HCL 10 MG/2 ML VIAL. IVP ONE (23:00)
--- NOTE | 2020-12-26 23:59 | RAD ---
XR CHEST 1V 12/26/2020 11:40 PM INDICATION: Infectious workup, shortness of air COMPARISON: None available TECHNIQUE: Portable frontal view of the chest is provided. FINDINGS: The cardiomediastinal silhouette is within normal limits. Lungs are clear. Atherosclerotic changes of the thoracic aorta are present. There are no significant pleural effusions. There is no pulmonary vascular congestion. No pneumothora x. No suspicious osseous abnormality. IMPRESSION: There is no acute cardiopulmonary process. Electronically signed by: Maria Elena Rodas MD (12/26/2020 11:57 PM) ROSALINDA
--- NOTE | 2020-12-27 00:02 | EKG ---
[facility] [address] [place] [address] Test Date: 2020-12-26 Test Time: 22:10:57 Pat Name: ONEYDA BOURGEOIS Department: Room: Gender: F Mixing Machine Operator: CARROLL : 1945 Requested By: GABRIELA JIMENEZ Order Number: [id number] Reading MD: Measurements Intervals [place] Rate: 113 P: [place]: QRS: 66 QRSD: 128 T: 264 QT: 358 QTc: 497 Interpretive Statements IRREGULAR RHYTHM, NO P-WAVE FOUND RIGHT BUNDLE BRANCH BLOCK RVH WITH REPOLARIZATION ABNORMALITY ABNORMAL ECG RI6.02 No previous ECG available for comparison
[2020-12-27 00:30] LABS: BACTERIA,URINE 0 /HPF (0-FEW); BILIRUBIN,URINE NEG (NEG); CLARITY,URINE CLEAR; COLOR,URINE YELLOW; GLUCOSE,URINE NEG (NEG); NITRITE,URINE NEG (NEG); SQUAMOUS EPITHELIAL CELL,UR FEW /LPF; UROBILINOGEN,URINE 0.2 mg/dL (0.2 mg/dL)
[2020-12-27] MEDS ORDERED: MAGNESIUM SULFATE 2GM 50 ML IV ONE (01:00)
[2020-12-27] MEDS ORDERED: MORPHINE SULFATE 4 MG/ML DISP.SYRIN. IV ONE (01:30)
[2020-12-27] MEDS ORDERED: IV RINGERS SOLUTION,LACTATED 1,000 ML IV ONE (01:30)
[2020-12-27 02:20] VITALS: BP 165/87
--- NOTE | 2020-12-27 03:28 | EKG ---
[address] [address] Test Date: 2020-12-26 Test Time: 23:50:35 Pat Name: ONEYDA BOURGEOIS Department: Room: Gender: F Gastroenterology Professor: CARROLL : 1945 Requested By: LYSSA VILLARREAL Order Number: [id number] Reading MD: Measurements Intervals [place] Rate: 113 P: MT: QRS: 68 QRSD: 130 T: 248 QT: 354 QTc: 492 Interpretive Statements IRREGULAR RHYTHM, NO P-WAVE FOUND RIGHT BUNDLE BRANCH BLOCK RVH WITH REPOLARIZATION ABNORMALITY ABNORMAL ECG RI6.02 Compared to ECG 12/26/2020 22:10:57 No significant changes
== END 2020-12-27 02:45 | disposition short-term general hospital (02) ==
LOC: ER 20:23
DX: R11.2 Nausea with vomiting, unspecified (principal); I10 Essential (primary) hypertension; J44.9 Chronic obstructive pulmonary disease, unspecified; E11.9 Type 2 diabetes mellitus without complications; Z88.6 Allergy status to analgesic agent; Z88.8 Allergy status to other drugs, medicaments and biological substances
CPT/HCPCS: 36415; 71045; 74176; 80053; 80076; 81001; 83605; 83690; 83735; 84484; 85025; 87086; 93005; 96361; 96365; 96366; 96374; 96375; 96376; 99285; J2405; J2765; J3475; J7120; 96367; 96368

== ENCOUNTER → 2021-02-25 | Outpatient (CLI) | payer MEDICARE, OTHER ==
[~2021-02-25] MED LIST changes: +ALBU0.63; +DOCU50CA; +FLUO20CA20; +GABA300C8; +OMEP40CA45; +ONDA4TAB7; +[UNRECOGNIZED DRUG - CODE]
== END ==
LOC: LAB 12:00
PROVIDERS: ATTEND Internal Medicine Cardiovascular Disease
DX: Z01.812 Encounter for preprocedural laboratory examination (principal); Z20.822 Contact with and (suspected) exposure to COVID-19
CPT/HCPCS: C9803; U0003; U0005

== ENCOUNTER 2021-03-11 14:09 | Inpatient (IN) | payer MEDICARE, OTHER ==
[~2021-03-11] VITALS: Ht 160 cm; Wt 92.8 kg
[~2021-03-11 14:09] MED LIST changes: -DRON400T PO; +DRON400T6 PO
[2021-03-11 15:09] LABS: BASO # 0.1 x10^3/uL (0.0-0.2); BASO % 1 % (0-3); EOS # 0.2 x10^3/uL (0.0-0.7); EOS % 2 % (0-3); HEMOGLOBIN 9.5 g/dL (12.0-15.5); LYMPH % 13 % (24-48); MEAN CORPUSCULAR HEMOGLOBIN 24 pg (25-35); MEAN CORPUSCULAR HGB CONC 30 g/dL (31-37); MEAN CORPUSCULAR VOLUME 80 fL (79-100); MONO # 0.9 x10^3/uL (0.0-1.1); MONO % 12 % (0-9); NEUT # 5.4 x10^3uL (1.8-7.7); NEUT % 72 % (31-73); PLATELET COUNT 355 x10^3/uL (140-400); RED BLOOD COUNT 4.01 x10^6/uL (3.50-5.40); RED CELL DISTRIBUTION WIDTH 19.7 % (11.5-14.5); WHITE BLOOD COUNT 7.5 x10^3/uL (4.0-11.0)
--- NOTE | 2021-03-11 15:10 | EKG ---
[address] [address] Test Date: 2021-03-11 Test Time: 14:16:30 Pat Name: ONEYDA BOURGEOIS Department: Room: Gender: F Director Ehs: JAELYN : 1945 Requested By: EFRA WOODS Order Number: [id number] Reading MD: Measurements Intervals [place] Rate: 54 P: 32 CA: 240 QRS: 29 QRSD: 124 T: 51 QT: 468 QTc: 446 Interpretive Statements SINUS RHYTHM PROLONGED CA INTERVAL T ABNORMALITY IN ANTERIOR LEADS ABNORMAL ECG RI6.02 No previous ECG available for comparison
[2021-03-11 15:17] LABS: CALCIUM 8.6 mg/dL (8.5-10.1); CREATININE 1.7 mg/dL (0.6-1.0); GFR 29.2; POTASSIUM 5.3 mmol/L (3.5-5.1)
[2021-03-11 15:34] LABS: ALBUMIN 2.6 g/dL (3.4-5.0); ALBUMIN/GLOBULIN RATIO 0.8 (1.0-1.7); MAGNESIUM 1.9 mg/dL (1.8-2.4); PHOSPHORUS 4.4 mg/dL (2.6-4.7); TOTAL BILIRUBIN 0.3 mg/dL (0.2-1.0); TOTAL PROTEIN 5.8 g/dL (6.4-8.2)
--- NOTE | 2021-03-11 16:00 | PHYS DOC ---
Past History Past Medical History: Anxiety, Depression, Diabetes, High Cholesterol, Hypertension, Other Additional Past Medical Histor: crohns (EFRA WOODS APRN) Past Surgical History: Other Additional Past Surgical Histo: ostomy (EFRA WOODS APRN) Smoking: Quit Greater Than 1 Year Alcohol Use: None Drug Use: None (EFRA WOODS APRN) Adult General Chief Complaint Chief Complaint: SHORTNESS OF BREATH HPI HPI Patient is a 75-year-old female presents to the emergency department stating that her home health nurse made a visit today and recommended she go to see her primary care physician Dr. Duffy. Patient reports Dr. Duffy's office deferred her to the emergency department today. Patient reports that 1 week ago she had a cardioversion at [facility] that went well. However she was treated with Eliquis for "a blood clot in my heart "and is still taking Eliquis today. Patient states that for the past 3 days she has noticed an increasing short of breath when she gets up to move around or walk to the bathroom within her house. Patient states that she is always short of breath however this is an increase for her as she can usually walk around her home without experiencing any problems. Patient denies any chest pain, abdominal pain, nausea, vomiting, diarrhea. Patient denies any chest congestion or nasal congestion. Patient denies cough or sore throat. Patient denies any skin rashes. Patient denies any recent illnesses or recent travel. Patient states that she is seen a property preservation specialist Dr. Vivar and was supposed to be seen today for ongoing treatment of her right great toe diabetic lesion but could not make the appointment because she is now here in the emergency department. Patient denies any recent fever or chills. Patient denies any other physical complaints or physical concerns. (EFRA WOODS APRN) Review of Systems Review of Systems 14 body systems of review of systems have been reviewed. See HPI for pertinent positives and negative responses, otherwise all other systems are negative, non pertinent or noncontributory. (EFRA WOODS APRN) Allergies Allergies Allergies Coded Allergies Type Severity Reaction Last Updated Verified liraglutide Allergy Severe 12/26/20 Yes adhesive tape Allergy Intermediate 09/20/19 Yes iodine Allergy Mild Hives 04/25/14 No (EFRA WOODS APRN) Physical Exam Physical Exam Constitutional: Well developed, well nourished, no acute distress, non-toxic appearance. 75-year-old female in no apparent distress lying in bed. HENT: Normocephalic, atraumatic, bilateral external ears normal, oropharynx moist, no oral exudates, nose normal. Oropharynx moist, pink, no infectious process appreciated, normal bilateral TMs, normal bilateral external auditory canals, no lymphadenopathy of the head or neck appreciated, patient speaking in normal voice tones. Eyes: PERRLA, EOMI, conjunctiva normal, no discharge. Neck: Normal range of motion, no tenderness, supple, no stridor. No meningeal signs, no nuchal rigidity appreciated. Cardiovascular:Heart rate regular rhythm, no murmur, heart sounds S1-S2, heart rate bradycardic. Lungs & Thorax: Bilateral breath sounds clear to auscultation no adventitious lung sounds appreciated. Abdomen: Bowel sounds normal, soft, no tenderness, no masses, no pulsatile masses. Abdomen round, obese, has ileostomy bag to left lower quadrant, intact, not leaking, skin surrounding ostomy site without infectious process appreciated. Skin: Warm, dry, no erythema, no rash. Back: No tenderness, no CVA tenderness. Extremities: No tenderness, no cyanosis, no clubbing, ROM intact, no edema. Patient has bandaged right great toe, bandage left in place under direction by Dr. Vivar. Neurologic: Alert and oriented X 3, normal motor function, normal sensory function, no focal deficits noted. Psychologic: Affect normal, judgement normal, mood normal. (EFRA WOODS APRN) Current Patient Data Vital Signs Vital Signs Date Time Temp Pulse Resp B/P (MAP) Pulse Ox O2 Delivery O2 Flow Rate FiO2 03/11/21 14:11 98.3 56 18 135/75 (95) 96 Room Air Lab Results Laboratory Tests Test 03/11/21 14:27 White Blood Count 7.5 x10^3/uL (4.0-11.0) Red Blood Count 4.01 x10^6/uL (3.50-5.40) Hemoglobin 9.5 g/dL (12.0-15.5) L Hematocrit 32.0 % (36.0-47.0) L Mean Corpuscular Volume 80 fL (79-100) Mean Corpuscular Hemoglobin 24 pg (25-35) L Mean Corpuscular Hemoglobin Concent 30 g/dL (31-37) L Red Cell Distribution Width 19.7 % (11.5-14.5) H Platelet Count 355 x10^3/uL (140-400) Neutrophils (%) (Auto) 72 % (31-73) Lymphocytes (%) (Auto) 13 % (24-48) L Monocytes (%) (Auto) 12 % (0-9) H Eosinophils (%) (Auto) 2 % (0-3) Basophils (%) (Auto) 1 % (0-3) Neutrophils # (Auto) 5.4 x10^3uL (1.8-7.7) Lymphocytes # (Auto) 1.0 x10^3/uL (1.0-4.8) Monocytes # (Auto) 0.9 x10^3/uL (0.0-1.1) Eosinophils # (Auto) 0.2 x10^3/uL (0.0-0.7) Basophils # (Auto) 0.1 x10^3/uL (0.0-0.2) Sodium Level 140 mmol/L (136-145) Potassium Level 5.3 mmol/L (3.5-5.1) H Chloride Level 104 mmol/L (98-107) Carbon Dioxide Level 28 mmol/L (21-32) Anion Gap 8 (6-14) Blood Urea Nitrogen 40 mg/dL (7-20) H Creatinine 1.7 mg/dL (0.6-1.0) H Estimated GFR (Cockcroft-Gault) 29.2 BUN/Creatinine Ratio 24 (6-20) H Glucose Level 299 mg/dL (70-99) H Calcium Level 8.6 mg/dL (8.5-10.1) Phosphorus Level 4.4 mg/dL (2.6-4.7) Magnesium Level 1.9 mg/dL (1.8-2.4) Total Bilirubin 0.3 mg/dL (0.2-1.0) Aspartate Amino Transferase (AST) 32 U/L (15-37) Alanine Aminotransferase (ALT) 37 U/L (14-59) Alkaline Phosphatase 138 U/L (46-116) H Creatine Kinase 103 U/L (26-192) Creatine Kinase MB (Mass) 4.4 ng/mL (0.0-3.6) H Creatine Kinase MB Relative Index 4.3 % (0-4) H Troponin I Quantitative < 0.017 ng/mL (0-0.055) SZ-Duw-K-Type Natriuretic Peptide 4067 pg/mL (0-449) H Total Protein 5.8 g/dL (6.4-8.2) L Albumin 2.6 g/dL (3.4-5.0) L Albumin/Globulin Ratio 0.8 (1.0-1.7) L (EFRA WOODS APRN) EKG EKG EKG performed at 1416 by house respiratory therapy staff shows a sinus bradycardia without ectopy heart rate 54 bpm, CO interval 0.240, QTc interval 0.446. No acute STEMI, no ACS, no acute ischemia appreciated, EKG interpreted by ED attending physician Dr. Barakat. (EFRA WOODS APRN) Radiology/Procedures Radiology/Procedures PATIENT: ONEYDA BOURGEOIS ACCOUNT: [id number] : 1945 LOCATION: ER AGE: 75 SEX: F EXAM STATUS: REG ER ORD. PHYSICIAN: EFRA WOODS APRN REASON: SHORT OF BREATH PROCEDURE: CHEST PA & LATERAL Exam Date: 03/11/2021 3:15 PM XR CHEST 2V Indication: Reason: SHORT OF BREATH / Spl. Instructions: / History: Comparison: December 26, 2020 FINDINGS/ IMPRESSION: The aorta is calcified. There are bilateral perihilar and basilar infiltrates and/or atelectasis. Follow-up chest radiographs to resolution following treatment are recommended. The cardiac silhouette is unchanged. There is no appreciable pleural effusion or pneumothorax. Degenerative changes are seen in the spine. Electronically signed by: Coby Moise MD (03/11/2021 3:55 PM) [id number] DICTATED AND SIGNED BY: COBY MOISE MD DATE: 03/11/21 1553 CC: EFRA WOODS APRN; VALENTÍN MCKEE MD; EMERGENCY,DEPARTMENT ~MTH0 0 (EFRA WOODS APRN) Heart Score C/O Chest Pain: No Risk Factors: Risk Factors: DM, Current or recent (<one month) smoker, HTN, HLP, family history of CAD, obesity. Risk Scores: Risk Factors: DM, Current or recent (<one month) smoker, HTN, HLP, family history of CAD, obesity. (EFRA WOODS APRN) Course & Med Decision Making Course & Med Decision Making Pertinent Labs and Imaging studies reviewed. (See chart for details) 75-year-old female, vital signs reviewed, presents emergency department with complaints of shortness of breath on exertion for the past 3 days. Physical examination found patient in no apparent distress while patient was lying in bed. Patient was sent by her primary care physician Dr. Duffy for evaluation for admission for heart failure with dyspnea on exertion versus other cardiopulmonary exacerbation. A cardiopulmonary work-up was initiated in the emergency department. Patient EKG unremarkable, patient did have elevated D-dimer, however patient's GFR [address] angio chest, patient proBNP elevated at 4069, upon reevaluation of the patient, patient remains nontoxic in appearance, is in no apparent distress, is in no respiratory distress. Discussed with patient will call Dr. Duffy for admission to the hospital for VQ scan study, dyspnea on exertion, heart failure. Patient is amenable to this plan. Discussed patient right diabetic great toe ulcer with patient's property preservation specialist Dr. Vivar who recommended leaving bandage in place and having wound care evaluate upon admission. Called and discussed patient case with inpatient management Dr. Duffy who has agreed to admit patient to the ICU at [facility] with the information he was given by me. Dr. Mendenhall recommended VQ scan study and to have ICU call him with results. Dr. Duffy has assumed patient care at this time. (EFRA WOODS APRN) Course & Med Decision Making I oversaw on the above date of service of this patient and discussed the care w ith the TURBO OPERATOR. I saw patient and agree with the findings, plan of care, and disposition as documented. Electronically signed, Eduardo Barakat, DO Critical Care Time This patient required critical care. Due to the fact that the patient required a significant amount of one on one physician - patient contact time, ordering and review of studies, arranging urgent treatment with development of a management plan, evaluation of patients response to treatment with frequent reassessments, and discussions with other providers this patient required 35 minutes of critical care time. Critical care time was indicated due to the inherent instability and/or potential for instability in this patient. The critical care time that is allocated to this patient is above and beyond any time spent on any other billable procedures performed on this patient. (EDUARDO BARAKAT DO) Dragon Disclaimer Dragon Disclaimer This electronic medical record was generated, in whole or in part, using a voice recognition dictation system. (EFRA WOODS APRN) Departure Departure: Impression: Primary Impression: Dyspnea on exertion Additional Impression: Congestive heart failure (CHF) Disposition: 09 ADMITTED INPATIENT Admitting Physician: Valentín Mckee (Admit to ICU at [facility], diagnosis congestive heart failure, dyspnea on exertion.) (EFRA WOODS APRN) Condition: GUARDED Referrals: VALENTÍN MCKEE MD (PCP) Problem Qualifiers Additional Impression: Congestive heart failure (CHF) Heart failure type: unspecified Heart failure chronicity: acute on chronic Qualified Codes: I50.9 - Heart failure, unspecified EFRA WOODS APRN Mar 11, 2021 16:00 EDUARDO BARAKAT DO Mar 14, 2021 06:16
[2021-03-11 20:00] VITALS: BP 111/57
[2021-03-11] MEDS ORDERED: DIPH25CA58 PO (20:30)
[2021-03-11] MEDS ORDERED: AMIO200T6 PO (20:30)
[2021-03-11] MEDS ORDERED: CEPH500C PO (20:30)
[2021-03-11] MEDS ORDERED: BISM262O20 PO (20:30)
[2021-03-11] MEDS ORDERED: ATOR40TA PO (20:30)
[2021-03-11] MEDS ORDERED: BUPR150T11 PO (20:30)
[2021-03-11] MEDS ORDERED: INSU100I46 SQ (20:30)
[2021-03-11] MEDS ORDERED: METO100T7 PO (20:30)
[2021-03-11] MEDS ORDERED: POTA8TAB PO (20:30)
[2021-03-11] MEDS ORDERED: FLUT16SP21 NS (20:30)
[2021-03-11] MEDS ORDERED: APIX5TAB3 PO (20:30)
[2021-03-11] MEDS ORDERED: CYCL5TAB PO (20:30)
[2021-03-11] MEDS ORDERED: DIGO125T3 PO (20:30)
[2021-03-11] MEDS ORDERED: ERGO500027 PO (20:30)
[2021-03-11] MEDS ORDERED: NON FORMULARY ITEM (Ipratropium/Albuterol Sulfate (Combivent Respimat Inhal) 1 INH) IH PRN (20:45)
[2021-03-11] MEDS ORDERED: BISMUTH SUBSALICYLATE 262 MG/15 ML ORAL.SUSP 236ML BOTTLE. PO PRN (20:45)
[2021-03-11] MEDS ORDERED: diphenhydrAMINE HCL 25 MG CAPSULE PO PRN (20:45)
[2021-03-11] MEDS ORDERED: ONDANSETRON ODT 4 MG TAB.RAPDIS PO PRN (20:45)
[2021-03-11] MEDS ORDERED: traMADol 50 MG TABLET PO PRN (20:45)
[2021-03-11] MEDS ORDERED: FUROSEMIDE 20 MG/2 ML VIAL IVP ONE (21:00)
[2021-03-11] MEDS ORDERED: CYCLOBENZAPRINE 10 MG TABLET. PO PRN (21:00)
[2021-03-11] MEDS: AMIODARONE HCL 200 MG TABLET. PO SCH ×2 (21:00→21:47)
[2021-03-11] MEDS ORDERED: MECLIZINE 12.5 MG TABLET. PO PRN (21:00)
[2021-03-11 21:03] VITALS: BP 139/64
[2021-03-11] MEDS ORDERED: IPRATRPIUM/ALBUTEROL 0.5/2.5MG 3 ML NEBU. NEB PRN (21:15)
[2021-03-11 21:29] LABS: DIG < 0.2 ng/dL (0.9-2.0)
[2021-03-11] MEDS: rOPINIRole 1 MG TABLET. PO SCH (21:47)
[2021-03-11] MEDS: DOCUSATE SODIUM 100 MG CAPSULE PO SCH (21:47)
[2021-03-11] MEDS: SIMETHICONE 80 MG TAB.CHEW PO SCH (21:47)
[2021-03-11] MEDS: OMEGA-3 FATTY ACIDS/FISH OIL 1,000 MG CAPSULE. PO SCH (21:48)
[2021-03-11] MEDS: buPROPion SR 150 MG TABLET.SA PO SCH (21:49)
[2021-03-11] MEDS: APIXABAN 5 MG TABLET. PO SCH (21:51)
[2021-03-11] MEDS: OXYBUTYNIN CHLORIDE 5 MG TABLET PO SCH (21:51)
[2021-03-11] MEDS: GABAPENTIN 300 MG CAPSULE. PO SCH (21:51)
[2021-03-11] MEDS: FLUoxetine HCL 20 MG CAPSULE PO SCH (21:51)
[2021-03-11] MEDS: ATORVASTATIN CALCIUM 20 MG TABLET PO SCH (21:51)
[2021-03-11] MEDS: INSULIN GLARGINE SYRINGE. SQ SCH (21:53)
[2021-03-11] MEDS: INSULIN LISPRO 300 UNITS/3 ML VIAL. SQ SCH (21:53)
[2021-03-11 22:01] VITALS: BP 111/48
[2021-03-11] MEDS ORDERED: ZOLPIDEM 5 MG TABLET. PO PRN (22:45)
[2021-03-11 23:04] VITALS: BP 104/83
[2021-03-12] VITALS (23 sets, daily range): BP systolic 105–151; BP diastolic 52–112
[2021-03-12 00:50] LABS: BACTERIA,URINE 0 /HPF (0-FEW); BILIRUBIN,URINE NEG (NEG); CLARITY,URINE CLEAR; COLOR,URINE YELLOW; GLUCOSE,URINE NEG (NEG); NITRITE,URINE NEG (NEG); RBC,URINE 0 /HPF (0-2); SQUAMOUS EPITHELIAL CELL,UR FEW /LPF; UROBILINOGEN,URINE 0.2 mg/dL (0.2 mg/dL)
[2021-03-12 06:11] LABS: BASO # 0.1 x10^3/uL (0.0-0.2); BASO % 1 % (0-3); EOS # 0.3 x10^3/uL (0.0-0.7); EOS % 4 % (0-3); HEMATOCRIT 32.9 % (36.0-47.0); HEMOGLOBIN 9.8 g/dL (12.0-15.5); LYMPH # 1.3 x10^3/uL (1.0-4.8); LYMPH % 17 % (24-48); MEAN CORPUSCULAR HEMOGLOBIN 24 pg (25-35); MEAN CORPUSCULAR HGB CONC 30 g/dL (31-37); MEAN CORPUSCULAR VOLUME 81 fL (79-100); MONO # 1.1 x10^3/uL (0.0-1.1); MONO % 14 % (0-9); NEUT # 5.2 x10^3uL (1.8-7.7); NEUT % 65 % (31-73); PLATELET COUNT 351 x10^3/uL (140-400); RED BLOOD COUNT 4.09 x10^6/uL (3.50-5.40); RED CELL DISTRIBUTION WIDTH 19.8 % (11.5-14.5); WHITE BLOOD COUNT 8.1 x10^3/uL (4.0-11.0)
[2021-03-12 06:24] LABS: ALBUMIN 2.6 g/dL (3.4-5.0); ALBUMIN/GLOBULIN RATIO 0.9 (1.0-1.7); CALCIUM 8.7 mg/dL (8.5-10.1); CREATININE 1.9 mg/dL (0.6-1.0); GFR 25.7; POTASSIUM 4.5 mmol/L (3.5-5.1); TOTAL BILIRUBIN 0.3 mg/dL (0.2-1.0); TOTAL PROTEIN 5.6 g/dL (6.4-8.2)
[2021-03-12] MEDS: OMEGA-3 FATTY ACIDS/FISH OIL 1,000 MG CAPSULE. PO SCH ×2 (08:44→21:15)
[2021-03-12] MEDS: OXYBUTYNIN CHLORIDE 5 MG TABLET PO SCH ×3 (08:46→21:16)
[2021-03-12] MEDS: PANTOPRAZOLE 40 MG TABLET. PO SCH (08:46)
[2021-03-12] MEDS: GABAPENTIN 300 MG CAPSULE. PO SCH ×2 (08:46→21:16)
[2021-03-12] MEDS: LACTOBACILLUS RHAMNOSUS GG 1 CAPSULE. PO SCH ×2 (08:47→21:16)
[2021-03-12] MEDS: CEPHALEXIN 250 MG CAPSULE PO SCH ×3 (08:47→21:16)
[2021-03-12] MEDS: FLUoxetine HCL 20 MG CAPSULE PO SCH ×2 (08:47→21:16)
[2021-03-12] MEDS: rOPINIRole 1 MG TABLET. PO SCH ×2 (08:47→21:16)
[2021-03-12] MEDS: FLUTICASONE 50MCG/NASAL SPRAY 16GM BOTTLE. NS SCH (08:48)
[2021-03-12] MEDS: APIXABAN 5 MG TABLET. PO SCH ×2 (08:51→21:15)
[2021-03-12] MEDS: SIMETHICONE 80 MG TAB.CHEW PO SCH ×2 (08:51→21:15)
[2021-03-12] MEDS: buPROPion SR 150 MG TABLET.SA PO SCH ×2 (08:52→21:16)
[2021-03-12] MEDS: INSULIN LISPRO 300 UNITS/3 ML VIAL. SQ SCH ×3 (08:55→17:00)
[2021-03-12] MEDS: MULTIVITAMIN with MINERAL TABLET. PO SCH (08:56)
[2021-03-12] MEDS ORDERED: DIGOXIN 125 MCG TABLET PO SCH (09:00)
[2021-03-12] MEDS ORDERED: FUROSEMIDE 40 MG/4 ML VIAL IVP ONE (09:45)
--- NOTE | 2021-03-12 10:11 | RAD ---
Indication: Reason: SHORT OF BREATH WITH ELEVATED D-DIMER / Spl. Instructions: NO VENT DURING COVID P ER RADIOLOGIST / History: Technique: Static images are obtained of both lungs following IV administration of 5.5 mCi of 99 M te chnetium MAA. Comparison: March 11, 2021 chest x-ray and the Q from October 2019 Findings: Numerous perfusion defects are seen scattered throughout the bilateral lungs. Cannot assess whether t hese are matched or mismatched defects given lack of ventilation images. Impression: 1. Multiple bilateral perfusion defects are again identified. Of note the patient also had multifocal perfusion defects seen throughout the bilateral lungs on prior examination which was high probabilit y for pulmonary embolus. Cannot assess whether the defects are matched or mismatched on this examinat ion given the lack of ventilation but overall this exam is on the border between intermediate and hig h probability for pulmonary embolus. Given that the patient has numerous perfusion defects on prior e xamination as well the acuity of these findings is unknown. Electronically signed by: Jayden Israel MD (03/12/2021 10:09 AM) [id number]
[2021-03-12] MEDS: AMIODARONE HCL 200 MG TABLET. PO SCH ×2 (10:27→21:15)
--- NOTE | 2021-03-12 12:17 | RAD ---
STUDY: US BILATERAL LOWEREXTREMITY VENOUS DOPPLER INDICATION: Positive PE TECHNIQUE: Color-flow and pulsed wave duplex ultrasound with compression of venous structures of the bilateral lower extremities. COMPARISON: None Available. FINDINGS: Duplex ultrasound with compression of the deep venous structures of the bilateral lower extremities f rom the common femoral vein through the popliteal vein is negative for DVT. The posterior tibial and peroneal veins are segmentally visualized and patent where seen. Normal veno us waveforms and augmentation are noted throughout. IMPRESSION: No deep venous thrombosis of the bilateral lower extremities. Electronically signed by: Josh Pacheco MD (03/12/2021 12:14 PM) [facility]
[2021-03-12] MEDS: DOCUSATE SODIUM 100 MG CAPSULE PO SCH (21:16)
[2021-03-12] MEDS: ATORVASTATIN CALCIUM 20 MG TABLET PO SCH (21:16)
[2021-03-12] MEDS: INSULIN GLARGINE SYRINGE. SQ SCH (21:21)
[2021-03-12 23:10] LABS: HEMOGLOBIN A1C 8.4 % (4.8-5.6)
[2021-03-13] VITALS (10 sets, daily range): BP systolic 106–164; BP diastolic 52–84
[2021-03-13 06:38] LABS: BASO # 0.1 x10^3/uL (0.0-0.2); BASO % 1 % (0-3); EOS # 0.3 x10^3/uL (0.0-0.7); EOS % 4 % (0-3); HEMATOCRIT 32.4 % (36.0-47.0); HEMOGLOBIN 9.7 g/dL (12.0-15.5); LYMPH # 0.8 x10^3/uL (1.0-4.8); LYMPH % 10 % (24-48); MEAN CORPUSCULAR HEMOGLOBIN 24 pg (25-35); MEAN CORPUSCULAR HGB CONC 30 g/dL (31-37); MEAN CORPUSCULAR VOLUME 79 fL (79-100); MONO % 12 % (0-9); NEUT % 74 % (31-73); PLATELET COUNT 364 x10^3/uL (140-400); RED BLOOD COUNT 4.09 x10^6/uL (3.50-5.40); RED CELL DISTRIBUTION WIDTH 19.5 % (11.5-14.5); WHITE BLOOD COUNT 8.2 x10^3/uL (4.0-11.0)
[2021-03-13 06:49] LABS: CALCIUM 8.4 mg/dL (8.5-10.1); CREATININE 1.5 mg/dL (0.6-1.0); GFR 33.8; POTASSIUM 4.1 mmol/L (3.5-5.1)
--- NOTE | 2021-03-13 08:38 | PDOC2 ---
CARDIAC CONSULT DATE OF CONSULT DOS: DATE: 03/13/21 TIME: 08:16 REASON FOR CONSULT Reason for Consult bradycardia REFERRING PHYSICIAN Referring Physician Dr. Cummins SOURCE Source: Chart review, Patient HPI History of Present Illness This is a 75 yo female who presented secondary to shortness of breath. Has a history of AFIB. Underwent cardioversion at [facility] 2 weeks ago[address] Dr. Sanchez. Reports shortness of breath, especially upon exertion over the last week or so. Reports compliance with meds. Denies any chest pain, palpitations, dizziness, diaphoresis, or nausea/vomiting. Was noted to be mildly bradycardic, which prompted this consult. Is maintaining SR. PAST MEDICAL HISTORY Past Medical History Cardiovascular: AFIB, CAD, HTN, hyperipidemia Pulmonary: Other (YUNIOR) GI: GERD, Irritable bowel disease Heme/Onc: Anemia NOS, Other (DVT, PE) Psych: Depression Musculoskeletal: Osteoarthritis Renal/: Chronic renal insuff Endocrine: Diabetes PAST SURGICAL HISTORY Past Surgical History Arthroscopy (RTC repair), Cataract Removal, Other (multiple abdominal surgery including colon resection and ileostomy placement; PCI 2 yrs ago, Cardiac ablation 6 yrs ago). Appendectomy, Cholecystectomy FAMILY HISTORY Family History Heart Disease, Stroke, Other (renal disease) SOCIAL HISTORY Social History Smoke: No ALCOHOL: none Drugs: None Lives: with Family CURRENT MEDICATIONS Current Medications Current Medications Amiodarone HCl (Cordarone) 200 mg BID PO Last administered on 03/12/21at 21:15; Start 03/11/21 at 21:00 Apixaban (Eliquis) 5 mg BID PO Last administered on 03/12/21at 21:15; Start 03/11/21 at 21:00 Bismuth Subsalicylate (Pepto-Bismol) 262 mg PRN Q6HRS PRN PO DYSPEPSIA; Start 03/11/21 at 20:45 Bupropion HCl (Wellbutrin Sr) 150 mg BID PO Last administered on 03/12/21at 21:16; Start 03/11/21 at 21:00 Digoxin (Lanoxin) 125 mcg DAILY PO ; Start 03/12/21 at 09:00; Stop 03/13/21 at 07:31; Status DC Diphenhydramine HCl (Benadryl) 25 mg PRN Q6HRS PRN PO ITCHING; Start 03/11/21 at 20:45 Docusate Sodium (Colace) 100 mg HS PO Last administered on 03/12/21 21:16; S tart 03/11/21 at 21:00 Fluoxetine HCl (PROzac) 20 mg BID PO Last administered on 03/12/21 21:16; Start 03/11/21 at 21:00 Fluticasone Propionate (Flonase) 2 spray DAILY NS Last administered on 03/12/21 08:48; Start 03/12/21 at 09:00 Gabapentin (Neurontin) 600 mg BID PO Last administered on 03/12/21 21:16; Start 03/11/21 at 21:00 Insulin Human Lispro (HumaLOG) 10 units TIDWMEALS SQ Last administered on 03/12/21 13:08; Start 03/11/21 at 21:00 Fish Oil (Fish Oil) 2,000 mg BID PO Last administered on 03/12/21 21:15; Start 03/11/21 at 21:00 Ondansetron HCl (Zofran Odt) 4 mg PRN Q12HR PRN PO NAUSEA; Start 03/11/21 at 20:45 Ropinirole HCl (Requip) 1 mg BID PO Last administered on 03/12/21 21:16; Start 03/11/21 at 21:00 Tramadol HCl (Ultram) 50 mg PRN BID PRN PO PAIN; Start 03/11/21 at 20:45 Atorvastatin Calcium (Lipitor) 40 mg QHS PO Last administered on 03/12/21at 21:16; Start 03/11/21 at 21:00 Cephalexin HCl (Keflex) 500 mg TID PO Last administered on 03/12/21 21:16; Start 03/12/21 at 09:00 Cyclobenzaprine HCl (Flexeril) 5 mg PRN TID PRN PO MUSCLE PAIN; Start 03/11/21 at 21:00 Vitamin D (Vitamin D3) 50,000 unit QM PO ; Start 03/17/21 at 16:00 Insulin Glargine (Lantus Syringe) 30 unit QHS SQ Last administered on 03/12/21 21:21; Start 03/11/21 at 21:00 Non-Formulary Medication (Ipratropium/ Albuterol Sulfate (Combivent Respimat Inhal)) 1 inh PRN Q6HRS PRN IH SHORTNESS OF BREATH; Start 03/11/21 at 20:45; Stop 03/11/21 at 21:07; Status DC Meclizine HCl (Antivert) 25 mg PRN Q8HRS PRN PO DIZZINESS; Start 03/11/21 at 21:00 Multivitamins/ Calcium (Thera-M Plus) 1 tab DAILY PO Last administered on 03/12/21at 08:56; Start 03/12/21 at 09:00 Pantoprazole Sodium (Protonix) 40 mg DAILYAC PO Last administered on 03/12/21at 08:46; Start 03/12/21 at 07:30 Simethicone (Gas-X) 120 mg BID PO Last administered on 03/12/21at 21:15; Start 03/11/21 at 21:00 Oxybutynin Chloride (Ditropan) 5 mg [id number] PO Last administered on 03/12/21at 21:16; Start 03/11/21 at 21:00 Furosemide (Lasix) 20 mg 1X ONCE IVP Last administered on 03/11/21at 21:47; Start 03/11/21 at 21:00; Stop 03/11/21 at 21:01; Status DC Albuterol/ Ipratropium (Duoneb) 3 ml PRN Q6HRS PRN NEB SOQ; Start 03/11/21 at 21:15 Lactobacillus Rhamnosus (Culturelle) 1 cap BID PO Last administered on 03/12/21at 21:16; Start 03/12/21 at 09:00 Zolpidem Tartrate (Ambien) 5 mg PRN QHS PRN PO INSOMNIA; Start 03/11/21 at 22:45 Furosemide (Lasix) 40 mg 1X ONCE IVP Last administered on 03/12/21at 10:27; Start 03/12/21 at 09:45; Stop 03/12/21 at 10:05; Status DC Active Scripts Active Reported Klor-Con 8 (Potassium Chloride) 8 Meq Tablet.er 8 Meq PO DAILY LAST DOSE GIVEN: DATE: TIME: NEXT DOSE DUE: DATE: TIME: Insulin Lispro Kwikpen U-100 (Insulin Lispro) 100 Unit/1 Ml Insuln.pen 10 Units SQ TID LAST DOSE GIVEN: DATE: TIME: NEXT DOSE DUE: DATE: TIME: Amiodarone Hcl 200 Mg Tablet 200 Mg PO BID LAST DOSE GIVEN: DATE: TIME: NEXT DOSE DUE: DATE: TIME: Bupropion Hcl Sr (Bupropion Hcl) 150 Mg Tablet.er 150 Mg PO BID LAST DOSE GIVEN: DATE: TIME: NEXT DOSE DUE: DATE: TIME: Cephalexin 500 Mg Capsule 500 Mg PO TID LAST DOSE GIVEN: DATE: TIME: NEXT DOSE DUE: DATE: TIME: Vitamin D2 (Ergocalciferol (Vitamin D2)) 1,250 Mcg Capsule 1,250 Mcg PO QM LAST DOSE GIVEN: DATE: TIME: NEXT DOSE DUE: DATE: TIME: Cyclobenzaprine Hcl 5 Mg Tablet 5 Mg PO TID PRN LAST DOSE GIVEN: DATE: TIME: NEXT DOSE DUE: DATE: TIME: Fluticasone Propionate Nasal [place] (Fluticasone Propionate) 16 Gm [place].susp 2 [place] NS DAILY LAST DOSE GIVEN: DATE: TIME: NEXT DOSE DUE: DATE: TIME: Benadryl (Diphenhydramine Hcl) 25 Mg Capsule 25 Mg PO PRN Q6HRS PRN LAST DOSE GIVEN: DATE: TIME: NEXT DOSE DUE: DATE: TIME: Pepto-Bismol (Bismuth Subsalicylate) 262 Mg/15 Ml Oral.susp 15 Ml PO PRN Q6HRS PRN LAST DOSE GIVEN: DATE: TIME: NEXT DOSE DUE: DATE: TIME: Lipitor (Atorvastatin Calcium) 40 Mg Tablet 40 Mg PO QHS LAST DOSE GIVEN: DATE: TIME: NEXT DOSE DUE: DATE: TIME: Metoprolol Tartrate 100 Mg Tablet 100 Mg PO BID LAST DOSE GIVEN: DATE: TIME: NEXT DOSE DUE: DATE: TIME: Eliquis (Apixaban) 5 Mg Tablet 5 Mg PO BID LAST DOSE GIVEN: DATE: TIME: NEXT DOSE DUE: DATE: TIME: One-Daily Multi-Vitamin (Multivitamin) 1 Each Tablet 1 Tab PO DAILY LAST DOSE GIVEN: DATE: TIME: NEXT DOSE DUE: DATE: TIME: Fish Oil 1,000 Mg Softgel ([place]-3 Fatty Acids/Fish Oil) 1 Each Capsule 2 Cap PO BID LAST DOSE GIVEN: DATE: TIME: NEXT DOSE DUE: DATE: TIME: Meclizine Hcl 25 Mg Tablet 25 Mg PO PRN Q8HRS PRN LAST DOSE GIVEN: DATE: TIME: NEXT DOSE DUE: DATE: TIME: Ondansetron Odt (Ondansetron) 4 Mg Tab.rapdis 4 Mg PO PRN Q12HR PRN LAST DOSE GIVEN: DATE: TIME: NEXT DOSE DUE: DATE: TIME: Torsemide 20 Mg Tablet 10 Mg PO DAILY PRN LAST DOSE GIVEN: DATE: TIME: NEXT DOSE DUE: DATE: TIME: Stool Softener (Docusate Sodium) 100 Mg Capsule 100 Mg PO HS LAST DOSE GIVEN: DATE: TIME: NEXT DOSE DUE: DATE: TIME: Gas Relief (Simethicone) 125 Mg Tab.chew 125 Mg PO BID LAST DOSE GIVEN: DATE: TIME: NEXT DOSE DUE: DATE: TIME: Lantus Solostar (Insulin Glargine,Hum.rec.anlog) 100 Unit/1 Ml Insuln.pen 30 Unit SQ HS LAST DOSE GIVEN: DATE: TIME: NEXT DOSE DUE: DATE: TIME: Omeprazole 40 Mg Capsule.dr 40 Mg PO BID LAST DOSE GIVEN: DATE: TIME: NEXT DOSE DUE: DATE: TIME: Requip (Ropinirole Hcl) 1 Mg Tablet 1 Mg PO BID LAST DOSE GIVEN: DATE: TIME: NEXT DOSE DUE: DATE: TIME: Gabapentin (Gabapentin) 300 Mg Capsule 600 Mg PO BID LAST DOSE GIVEN: DATE: TIME: NEXT DOSE DUE: DATE: TIME: Fluoxetine Hcl 20 Mg Capsule 20 Mg PO BID LAST DOSE GIVEN: DATE: TIME: NEXT DOSE DUE: DATE: TIME: Detrol La (Tolterodine Tartrate) 2 Mg Cap.er.24h 2 Mg PO BID LAST DOSE GIVEN: DATE: TIME: NEXT DOSE DUE: DATE: TIME: Combivent Respimat Inhal (Ipratropium/Albuterol Sulfate) 4 Gm Aer.w.adap 1 Inh IH PRN Q6HRS PRN LAST DOSE GIVEN: DATE: TIME: NEXT DOSE DUE: DATE: TIME: Tramadol Hcl (Tramadol HCl) 50 Mg Tablet 50 Mg PO BID PRN LAST DOSE GIVEN: DATE: TIME: NEXT DOSE DUE: DATE: TIME: ALLERGIES Allergies: Coded Allergies: liraglutide (Verified Allergy, Severe, 12/26/20) adhesive tape (Verified Allergy, Intermediate, 09/20/19) if left on too long iodine (Unverified Allergy, Mild, Hives, 04/25/14) ROS Review of Systems 14 point ROS conducted with pertinent positives noted above in HPI PHYSICAL EXAM Physical Exam General: Alert, Oriented X3, Cooperative, No acute distress HEENT: Atraumatic, Mucous membr. moist/pink Lungs: Other (diminished bases) Heart: RRR; tele SR Abdomen: Soft Extremities: No cyanosis, trace LE edema bilaterally Skin: No breakdown, No significant lesion Neuro: Normal speech, Sensation intact Psych/Mental Status: Mental status NL, Mood NL MUSCULOSKELETAL: Osteoarthritic changes both hands VITALS Vital Signs Vital Signs Date Time Temp Pulse Resp B/P (MAP) Pulse Ox O2 Delivery O2 Flow Rate FiO2 03/13/21 06:43 58 17 106/66 (79) 98 Nasal Cannula 2.0 03/13/21 04:45 97.9 LABS LABS Laboratory Tests Test 03/11/21 14:27 03/11/21 19:59 03/11/21 20:45 03/12/21 00:10 White Blood Count 7.5 x10^3/uL (4.0-11.0) Red Blood Count 4.01 x10^6/uL (3.50-5.40) Hemoglobin 9.5 g/dL (12.0-15.5) Hematocrit 32.0 % (36.0-47.0) Mean Corpuscular Volume 80 fL (79-100) Mean Corpuscular Hemoglobin 24 pg (25-35) Mean Corpuscular Hemoglobin Concent 30 g/dL (31-37) Red Cell Distribution Width 19.7 % (11.5-14.5) Platelet Count 355 x10^3/uL (140-400) Neutrophils (%) (Auto) 72 % (31-73) Lymphocytes (%) (Auto) 13 % (24-48) Monocytes (%) (Auto) 12 % (0-9) Eosinophils (%) (Auto) 2 % (0-3) Basophils (%) (Auto) 1 % (0-3) Neutrophils # (Auto) 5.4 x10^3uL (1.8-7.7) Lymphocytes # (Auto) 1.0 x10^3/uL (1.0-4.8) Monocytes # (Auto) 0.9 x10^3/uL (0.0-1.1) Eosinophils # (Auto) 0.2 x10^3/uL (0.0-0.7) Basophils # (Auto) 0.1 x10^3/uL (0.0-0.2) Prothrombin Time 10.9 SEC (9.4-11.4) Prothromb Time International Ratio 1.1 (0.9-1.1) Activated Partial Thromboplast Time 30 SEC (23-33) D-Dimer (Ileana) 4.03 mg/L (0.00-0.50) Sodium Level 140 mmol/L (136-145) Potassium Level 5.3 mmol/L (3.5-5.1) Chloride Level 104 mmol/L (98-107) Carbon Dioxide Level 28 mmol/L (21-32) Anion Gap 8 (6-14) Blood Urea Nitrogen 40 mg/dL (7-20) Creatinine 1.7 mg/dL (0.6-1.0) Estimated GFR (Cockcroft-Gault) 29.2 BUN/Creatinine Ratio 24 (6-20) Glucose Level 299 mg/dL (70-99) Calcium Level 8.6 mg/dL (8.5-10.1) Phosphorus Level 4.4 mg/dL (2.6-4.7) Magnesium Level 1.9 mg/dL (1.8-2.4) Total Bilirubin 0.3 mg/dL (0.2-1.0) Aspartate Amino Transf (AST/SGOT) 32 U/L (15-37) Alanine Aminotransferase (ALT/SGPT) 37 U/L (14-59) Alkaline Phosphatase 138 U/L (46-116) Creatine Kinase 103 U/L (26-192) Creatine Kinase MB (Mass) 4.4 ng/mL (0.0-3.6) Creatine Kinase MB Relative Index 4.3 % (0-4) Troponin I Quantitative < 0.017 ng/mL (0-0.055) CY-Qvo-W-Type Natriuretic Peptide 4067 pg/mL (0-449) Total Protein 5.8 g/dL (6.4-8.2) Albumin 2.6 g/dL (3.4-5.0) Albumin/Globulin Ratio 0.8 (1.0-1.7) Glucose (Fingerstick) 142 mg/dL (70-99) Digoxin Level < 0.2 ng/dL (0.9-2.0) Digoxin Last Dose Date Unk Digoxin Last Dose Time Unk Urine Collection Type Void Urine Color Yellow Urine Clarity Clear Urine pH 5.5 Urine Specific [place] 1.020 Urine Protein Neg (NEG-TRACE) Urine Glucose (UA) Neg mg/dL (NEG) Urine Ketones (Stick) Neg mg/dL (NEG) Urine Blood Neg (NEG) Urine Nitrite Neg (NEG) Urine Bilirubin Neg (NEG) Urine Urobilinogen Dipstick 0.2 mg/dL (0.2 mg/dL) Urine Leukocyte Esterase Neg (NEG) Urine RBC 0 /HPF (0-2) Urine WBC 1-4 /HPF (0-4) Urine Squamous Epithelial Cells Few /LPF Urine Bacteria 0 /HPF (0-FEW) Test 03/12/21 01:50 03/12/21 05:35 03/12/21 05:53 03/12/21 16:12 Glucose (Fingerstick) 113 mg/dL (70-99) 121 mg/dL (70-99) 59 mg/dL (70-99) White Blood Count 8.1 x10^3/uL (4.0-11.0) Red Blood Count 4.09 x10^6/uL (3.50-5.40) Hemoglobin 9.8 g/dL (12.0-15.5) Hematocrit 32.9 % (36.0-47.0) Mean Corpuscular Volume 81 fL (79-100) Mean Corpuscular Hemoglobin 24 pg (25-35) Mean Corpuscular Hemoglobin Concent 30 g/dL (31-37) Red Cell Distribution Width 19.8 % (11.5-14.5) Platelet Count 351 x10^3/uL (140-400) Neutrophils (%) (Auto) 65 % (31-73) Lymphocytes (%) (Auto) 17 % (24-48) Monocytes (%) (Auto) 14 % (0-9) Eosinophils (%) (Auto) 4 % (0-3) Basophils (%) (Auto) 1 % (0-3) Neutrophils # (Auto) 5.2 x10^3uL (1.8-7.7) Lymphocytes # (Auto) 1.3 x10^3/uL (1.0-4.8) Monocytes # (Auto) 1.1 x10^3/uL (0.0-1.1) Eosinophils # (Auto) 0.3 x10^3/uL (0.0-0.7) Basophils # (Auto) 0.1 x10^3/uL (0.0-0.2) Sodium Level 140 mmol/L (136-145) Potassium Level 4.5 mmol/L (3.5-5.1) Chloride Level 103 mmol/L (98-107) Carbon Dioxide Level 29 mmol/L (21-32) Anion Gap 8 (6-14) Blood Urea Nitrogen 42 mg/dL (7-20) Creatinine 1.9 mg/dL (0.6-1.0) Estimated GFR (Cockcroft-Gault) 25.7 BUN/Creatinine Ratio 22 (6-20) Glucose Level 132 mg/dL (70-99) Hemoglobin A1c 8.4 % (4.8-5.6) Calcium Level 8.7 mg/dL (8.5-10.1) Total Bilirubin 0.3 mg/dL (0.2-1.0) Aspartate Amino Transf (AST/SGOT) 34 U/L (15-37) Alanine Aminotransferase (ALT/SGPT) 34 U/L (14-59) Alkaline Phosphatase 128 U/L (46-116) Total Protein 5.6 g/dL (6.4-8.2) Albumin 2.6 g/dL (3.4-5.0) Albumin/Globulin Ratio 0.9 (1.0-1.7) Test 03/12/21 16:26 03/12/21 19:50 03/13/21 06:00 Glucose (Fingerstick) 83 mg/dL (70-99) 189 mg/dL (70-99) White Blood Count 8.2 x10^3/uL (4.0-11.0) Red Blood Count 4.09 x10^6/uL (3.50-5.40) Hemoglobin 9.7 g/dL (12.0-15.5) Hematocrit 32.4 % (36.0-47.0) Mean Corpuscular Volume 79 fL (79-100) Mean Corpuscular Hemoglobin 24 pg (25-35) Mean Corpuscular Hemoglobin Concent 30 g/dL (31-37) Red Cell Distribution Width 19.5 % (11.5-14.5) Platelet Count 364 x10^3/uL (140-400) Neutrophils (%) (Auto) 74 % (31-73) Lymphocytes (%) (Auto) 10 % (24-48) Monocytes (%) (Auto) 12 % (0-9) Eosinophils (%) (Auto) 4 % (0-3) Basophils (%) (Auto) 1 % (0-3) Neutrophils # (Auto) 6.0 x10^3uL (1.8-7.7) Lymphocytes # (Auto) 0.8 x10^3/uL (1.0-4.8) Monocytes # (Auto) 1.0 x10^3/uL (0.0-1.1) Eosinophils # (Auto) 0.3 x10^3/uL (0.0-0.7) Basophils # (Auto) 0.1 x10^3/uL (0.0-0.2) Sodium Level 138 mmol/L (136-145) Potassium Level 4.1 mmol/L (3.5-5.1) Chloride Level 102 mmol/L (98-107) Carbon Dioxide Level 29 mmol/L (21-32) Anion Gap 7 (6-14) Blood Urea Nitrogen 40 mg/dL (7-20) Creatinine 1.5 mg/dL (0.6-1.0) Estimated GFR (Cockcroft-Gault) 33.8 Glucose Level 191 mg/dL (70-99) Calcium Level 8.4 mg/dL (8.5-10.1) ECHOCARDIOGRAM Echocardiogram <Conclusion> The left ventricular systolic function is normal and the ejection fraction is within normal range. The Ejection Fraction is 55-60%. Septal wall motion consistent with conduction abnormality. Otherwise, grossly normal wall motion. The ascending aorta is mildly dilated at 3.6 cm DATE: 09/04/20 5725 ASSESSMENT/PLAN Assessment/Plan 1. Acute on chronic diastolic CHF; better compensated s/p IV Lasix 2. PAFIB; s/p CV last week. S/p previous ablation. Echo 09/03 with preserved LV function 3. Bradycardia, sinus; Dig, metoprolol, Amiodarone on home med list. Patient reports Digoxin was recently discontinued. Dig level < 0.2. HR lowest 52. No pauses 4. CAD s/p PCI/stent [address] Sanchez, [facility] 5. Hypertension; controlled 6. Hyperlipidemia; statin 7. Diabetes, II 8. MICHELINE on CKD; improved 9. H/o DVT, PE 12/19 10. H/o Crohn's Disease 11. 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 No OAC therapy. Has been tolerating Eliquis 12. 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 Will defer to primary route service representative Supportive care LOUIS SANDERS APRN Mar 13, 2021 08:38
[2021-03-13] MEDS ORDERED: POTASSIUM CHLORIDE 20 MEQ TABLET.ER. PO ONE (08:45)
[2021-03-13] MEDS ORDERED: FUROSEMIDE 20 MG/2 ML VIAL IVP ONE (08:45)
[2021-03-13] MEDS ORDERED: METOPROLOL TART IMMED RELEASE 25 MG TABLET. PO SCH (09:00)
[2021-03-13] MEDS: buPROPion SR 150 MG TABLET.SA PO SCH (10:05)
[2021-03-13] MEDS: MULTIVITAMIN with MINERAL TABLET. PO SCH (10:05)
[2021-03-13] MEDS: PANTOPRAZOLE 40 MG TABLET. PO SCH (10:05)
[2021-03-13] MEDS: rOPINIRole 1 MG TABLET. PO SCH (10:05)
[2021-03-13] MEDS: LACTOBACILLUS RHAMNOSUS GG 1 CAPSULE. PO SCH (10:05)
[2021-03-13] MEDS: AMIODARONE HCL 200 MG TABLET. PO SCH (10:17)
[2021-03-13] MEDS: GABAPENTIN 300 MG CAPSULE. PO SCH (10:17)
[2021-03-13] MEDS: OMEGA-3 FATTY ACIDS/FISH OIL 1,000 MG CAPSULE. PO SCH (10:17)
[2021-03-13] MEDS: SIMETHICONE 80 MG TAB.CHEW PO SCH (10:19)
[2021-03-13] MEDS: CEPHALEXIN 250 MG CAPSULE PO SCH ×2 (10:22→16:17)
[2021-03-13] MEDS: APIXABAN 5 MG TABLET. PO SCH (10:23)
[2021-03-13] MEDS: OXYBUTYNIN CHLORIDE 5 MG TABLET PO SCH ×2 (10:23→16:17)
[2021-03-13] MEDS: FLUTICASONE 50MCG/NASAL SPRAY 16GM BOTTLE. NS SCH (10:23)
[2021-03-13] MEDS: INSULIN LISPRO 300 UNITS/3 ML VIAL. SQ SCH ×3 (10:41→17:00)
[2021-03-13] MEDS: FLUoxetine HCL 20 MG CAPSULE PO SCH (10:42)
[2021-03-13] MEDS ORDERED: IPRATRPIUM/ALBUTEROL 0.5/2.5MG 3 ML NEBU. NEB SCH (14:00)
--- NOTE | 2021-03-14 09:56 | PN ---
DATE: 03/13/2021 LOCATION: ICU bed #2. SUBJECTIVE: The patient is a 75-year-old female who came in with multiplicity of medical problems including that of congestive heart failure and marked dyspnea. The patient otherwise is still very short of breath when she attempts to even sit on the side of the bed. She desaturates down into the mid 80s or so. The patient otherwise seems to be resting fairly comfortably and making fairly good progress overall. OBJECTIVE: VITAL SIGNS: Blood pressure 120/84, respirations 17, pulse 60, temperature 98.1. Oxygen 2 liters nasal cannula at 98, but it is noted even with a nasal cannula, she will drop down into the mid 80s by sitting up, this is lying down. LUNGS: Otherwise, lungs are basically clear. CARDIOVASCULAR: Regular sinus rhythm. ABDOMEN: Soft, protuberant. Ileostomy intact. EXTREMITIES: No clubbing, cyanosis nor edema. The patient is extremely dyspneic when sitting up as indicated. Interestingly enough, her last V/Q scan done a couple of days ago showed bilateral perfusion defects. They did note these would have been a prior high probability of PE, but certainly along that line the patient is on Eliquis and continues to be monitored carefully there. Her hemoglobin stabilized at 9.7 and 32. Platelets are normal, white count 8.2. The patient's blood sugars have been all over gone 83 up to 235. UA was unremarkable. Coags showed a D-dimer of 4.03. The patient's toe seems to be healing up very nicely and we will continue to monitor that with oral Keflex, diuresis, pulmonary test, hopefully to be transferred down to [facility] per her request to make further evaluation on her as indicated. ERYN/SRINI/THEA DR: Elisa TID: [id number]
--- NOTE | 2021-03-14 10:00 | PN ---
CONCLUSION DIAGNOSES: Acute respiratory failure, acute congestive heart failure, possible pulmonary emboli, cellulitis to the toe. PLAN: Try to transfer down to [facility] for consideration with Dr. 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 ERYN/EULALIO DR: ERYN/cici TID: [id number]
--- NOTE | 2021-03-17 13:38 | PN ---
DATE: 03/12/2021 SUBJECTIVE: Admitted yesterday with heart failure. BNP greater than 4000. She is somewhat still bradycardic in the 50s and adjusted her medications there. Cardiac enzymes have been negative. Albumin low at 2.6. She says she feels better. Hemoglobin still slightly on the low side of 9.8 and 32. OBJECTIVE: VITAL SIGNS: Otherwise, vital signs remain stable 134/67, respiratory rate 20, pulse 55, sometimes at night dropping down to 88%. She has sleep apnea. She has not been using the CPAP machine, so she requires oxygen to get that up. GENERAL: Otherwise, the patient is alert and oriented, somewhat pale appearing. LUNGS: Diminished throughout, poor movement of air. CARDIOVASCULAR: Regular rhythm. ABDOMEN: Soft, protuberant, nontender. EXTREMITIES: No clubbing, cyanosis, +1 edema. NEUROLOGIC: Alert and oriented x 3. IMPRESSION: Acute on top of chronic diastolic heart failure; chronic kidney disease stage IIIB; type 2 diabetes, poorly controlled; severe protein malnutrition. PLAN: The patient continued to be monitored. Consult cardiology on her bradycardia and further workup on this anemia. She does have an ileostomy and we will check her stools for any loss of blood through that mechanism, still some confusion on her medications, which she was taking at home or not taking, continue to monitor in the ICU for now because of the bradycardia and the hypoxemia. ERYN/SRINI/THEA DR: ERYN/cici TID: [id number]
[2021-03-17] MEDS ORDERED: CHOLECALCIFEROL (VITAMIN D3) 50,000 UNIT CAPSULE PO SCH (16:00)
== END 2021-03-13 19:31 | disposition short-term general hospital (02) | DRG 291 ==
LOC: ER 14:09 → ICU 18:38 → OBSVTOIN 19:40
PROVIDERS: ADMIT Family Medicine; ATTEND Family Medicine
DX: I13.0 Hypertensive heart and chronic kidney disease with heart failure and stage 1 through stage 4 chronic kidney disease, or unspecified chronic kidney disease (principal); I50.33 Acute on chronic diastolic (congestive) heart failure; J96.00 Acute respiratory failure, unspecified whether with hypoxia or hypercapnia; E43 Unspecified severe protein-calorie malnutrition; I26.99 Other pulmonary embolism without acute cor pulmonale; K50.90 Crohn's disease, unspecified, without complications; N17.9 Acute kidney failure, unspecified; E11.22 Type 2 diabetes mellitus with diabetic chronic kidney disease; E78.00 Pure hypercholesterolemia, unspecified; E78.5 Hyperlipidemia, unspecified; G47.33 Obstructive sleep apnea (adult) (pediatric); I25.10 Atherosclerotic heart disease of native coronary artery without angina pectoris; F32.9 Major depressive disorder, single episode, unspecified; F41.9 Anxiety disorder, unspecified; K21.9 Gastro-esophageal reflux disease without esophagitis; E11.65 Type 2 diabetes mellitus with hyperglycemia; N18.32 Chronic kidney disease, stage 3b; M19.90 Unspecified osteoarthritis, unspecified site; L03.039 Cellulitis of unspecified toe; I48.0 Paroxysmal atrial fibrillation; Z82.3 Family history of stroke; Z86.718 Personal history of other venous thrombosis and embolism; Z87.891 Personal history of nicotine dependence; Z91.19 Patient's noncompliance with other medical treatment and regimen; Z95.5 Presence of coronary angioplasty implant and graft; Z88.8 Allergy status to other drugs, medicaments and biological substances; Z91.041 Radiographic dye allergy status; Z20.822 Contact with and (suspected) exposure to COVID-19; Z68.36 Body mass index [BMI] 36.0-36.9, adult
CPT/HCPCS: 36415; 71046; 78580; 80048; 80053; 80162; 81001; 82553; 82947; 83036; 83735; 83880; 84100; 84443; 84484; 85025; 85379; 85610; 85730; 87426; 93005; 93970; 96374; A9540; G0379; J1815; J1940; 99285-25

== ENCOUNTER 2021-03-19 14:05 | Inpatient (IN) | payer MEDICARE, OTHER ==
[2021-03-19] VITALS (7 sets, daily range): BP systolic 102–147; BP diastolic 45–86
[~2021-03-19] VITALS: Ht 160 cm; Wt 89.7 kg
[~2021-03-19 14:05] MED LIST changes: +AMIO200T6 PO; +ATOR40TA PO; +BISM262O20 PO; +BUPR150T11 PO; +CEPH500C PO; +DIGO125T3 PO; +INSU100I46 SQ; +METO100T7 PO; +POTA8TAB PO
--- NOTE | 2021-03-19 14:24 | PN ---
DATE: 03/19/2021 SUBJECTIVE: A 75-year-old female was admitted for congestive heart failure, increased shortness of breath and markedly bradycardic into the 50s. The patient had multiple other medical issues. Her oxygen saturation dropped down to 88%. Normally, she had been wearing CPAP, but had apparently lost it in a move and was unable to maintain that. In any case, so the patient was also markedly bradycardic. She was seen by Cardiology and further workup there, the patient was chronically anemic with hemoglobin of 9 and as a result of this, the patient in turn Hemoccults were monitored as well. The patient made fairly good progress. She was diuresed in the usual fashion; however, her bradycardia did not seem to improve and as a result of this, the patient was transferred down to [place] for further evaluation on her situation with her bradycardia and her heart failure as indicated above. IMPRESSION: Acute on top of chronic diastolic heart failure, chronic kidney disease, 3B, type 2 diabetes, poorly controlled, severe protein malnutrition, morbid obesity, ileostomy from history of Crohn's disease, bradycardia and anemia, probably secondary to her Crohn's disease. PLAN: The patient will be transferred down by EMS and make further evaluation for her multiplicity of other medical issues such as epigastric pain, nausea, vomiting and the like. She will be continued to be monitored down there at the [facility] for such. ERYN/MAYLIN/JEANNE DR: ERYN/cici TID: [id number]
--- NOTE | 2021-03-19 14:39 | EKG ---
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
[2021-03-19] MEDS ORDERED: IPRATRPIUM/ALBUTEROL 0.5/2.5MG 3 ML NEBU. NEB ONE (14:45)
[2021-03-19 15:02] LABS: CREATININE 1.5 mg/dL (0.6-1.0); GFR 33.8; POTASSIUM 4.8 mmol/L (3.5-5.1)
[2021-03-19 15:07] LABS: ALBUMIN 2.7 g/dL (3.4-5.0); ALBUMIN/GLOBULIN RATIO 0.7 (1.0-1.7); TOTAL BILIRUBIN 0.4 mg/dL (0.2-1.0); TOTAL PROTEIN 6.6 g/dL (6.4-8.2)
[2021-03-19 15:09] LABS: BASO # 0.1 x10^3/uL (0.0-0.2); BASO % 1 % (0-3); EOS # 0.2 x10^3/uL (0.0-0.7); EOS % 2 % (0-3); HEMATOCRIT 32.1 % (36.0-47.0); HEMOGLOBIN 9.6 g/dL (12.0-15.5); LYMPH # 0.3 x10^3/uL (1.0-4.8); LYMPH % 3 % (24-48); MEAN CORPUSCULAR HEMOGLOBIN 24 pg (25-35); MEAN CORPUSCULAR HGB CONC 30 g/dL (31-37); MEAN CORPUSCULAR VOLUME 79 fL (79-100); MONO # 0.8 x10^3/uL (0.0-1.1); MONO % 8 % (0-9); NEUT # 8.2 x10^3uL (1.8-7.7); NEUT % 86 % (31-73); PLATELET COUNT 416 x10^3/uL (140-400); RED BLOOD COUNT 4.07 x10^6/uL (3.50-5.40); RED CELL DISTRIBUTION WIDTH 19.5 % (11.5-14.5); WHITE BLOOD COUNT 9.6 x10^3/uL (4.0-11.0)
--- NOTE | 2021-03-19 15:34 | RAD ---
EXAM: CHEST 1 VIEW History: Shortness of breath COMPARISON: None available. TECHNIQUE: Single portable radiograph of the chest FINDINGS: Mild cardiomegaly. Mild prominent bilateral interstitial lung markings likely mild congest jess changes. Mild left lung base atelectasis or infiltrate. IMPRESSION: 1. Mild congestive changes. 2. Mild left lung base atelectasis or infiltrate. Electronically signed by: Dillan Boston MD (03/19/2021 3:31 PM) [id number]
[2021-03-19] MEDS ORDERED: levoFLOXacin PER PHARMACY 1 EACH. MC PRN (16:00)
--- NOTE | 2021-03-19 16:11 | PHYS DOC ---
Past History Past Medical History: Anxiety, COPD, Depression, Diabetes, High Cholesterol, Hypertension, Other Additional Past Medical Histor: crohns, PULMONARY EMBOLISM (EFRA WOODS APRN) Past Surgical History: Other Additional Past Surgical Histo: ILIOSTOMY (EFRA WOODS APRN) Smoking: Quit Greater Than 1 Year Alcohol Use: None Drug Use: None (EFRA WOODS APRN) Adult General Chief Complaint Chief Complaint: SHORTNESS OF BREATH HPI HPI Patient is a 75-year-old female who presents emergency department complaining of increased shortness of breath while walking around at home today. Patient states she went home yesterday from [facility] where she was diagnosed with pulmonary emboli and started on Eliquis, she also had a cardioversion done by her pump stitcher [facility] Dr. Jarrell. Patient states that she felt fine yesterday, felt fine this morning, was getting up to walk to the bathroom when she noticed she became increasingly short of air. Patient states that she cut her wind in the bathroom and went back to her chair in the living room and was extremely short of breath. She states that this time her home health nurse came by for a health evaluation, became concerned and called her primary care physician Dr. Mckee who recommended patient be sent here to the emergency department for evaluation. Patient denies any chest pains, nausea, diaphoretic episodes, dizziness, visual disturbances, denies any other physical complaints or physical concerns. Patient did state that she has albuterol nebulizer treatments for home, states that everything happened so fast that she did not try her nebulizer treatments for her shortness of breath. (EFRA WOODS APRN) Review of Systems Review of Systems 14 body systems of review of systems have been reviewed. See HPI for pertinent positives and negative responses, otherwise all other systems are negative, nonpertinent or noncontributory. (EFRA WOODS APRN) Current Medications Current Medications Current Medications Medications (Trade) Dose Ordered Sig/Sam Start Time Stop Time Status Last Admin Dose Admin Albuterol/ Ipratropium (Duoneb) 3 ml 1X ONCE 03/19/21 14:45 03/19/21 14:54 DC 03/19/21 14:48 3 ML Ceftriaxone Sodium 1 gm/ Sodium Chloride 50 ml @ 100 mls/hr 1X ONCE 03/19/21 16:00 03/19/21 16:29 UNV Levofloxacin/ Dextrose (Levaquin Per Pharmacy) 1 each PRN DAILY PRN 03/19/21 16:00 UNV (EFRA WOODS APRN) Allergies Allergies Allergies Coded Allergies Type Severity Reaction Last Updated Verified liraglutide Allergy Severe 12/26/20 Yes adhesive tape Allergy Intermediate 09/20/19 Yes iodine Allergy Mild Hives 04/25/14 No (EFRA WOODS APRN) Physical Exam Physical Exam Constitutional: Well developed, well nourished, no acute distress, non-toxic appearance. 75-year-old female in no respiratory distress. Patient was placed on 2 L nasal cannula by ED nursing staff during their ED triage process. This is related to a O2 sat of 91% during triage. HENT: Normocephalic, atraumatic, bilateral external ears normal, oropharynx moist, no oral exudates, nose normal. Eyes: PERRLA, EOMI, conjunctiva normal, no discharge. Neck: Normal range of motion, no tenderness, supple, no stridor. Cardiovascular:Heart rate regular rhythm, no murmur, heart sounds S1-S2 to auscultation. Lungs & Thorax: Bilateral breath sounds clear clear upper lobes, diminished right lower lobe, coarse sounds left lower lobe. The patient is in no respirat ory distress during physical examination. Abdomen: Bowel sounds normal, soft, no tenderness, no masses, no pulsatile masses. Skin: Warm, dry, no erythema, no rash. Back: No tenderness, no CVA tenderness. Extremities: No tenderness, no cyanosis, no clubbing, ROM intact, no edema. Neurologic: Alert and oriented X 3, normal motor function, normal sensory function, no focal deficits noted. Psychologic: Affect normal, judgement normal, mood normal. (EFRA WOODS APRN) Current Patient Data Vital Signs Vital Signs Date Time Temp Pulse Resp B/P (MAP) Pulse Ox O2 Delivery O2 Flow Rate FiO2 03/19/21 14:49 95 Room Air 03/19/21 14:37 60 22 106/77 (87) 03/19/21 14:10 98.6 Lab Results Laboratory Tests Test 03/19/21 14:18 03/19/21 15:25 White Blood Count 9.6 x10^3/uL (4.0-11.0) Red Blood Count 4.07 x10^6/uL (3.50-5.40) Hemoglobin 9.6 g/dL (12.0-15.5) L Hematocrit 32.1 % (36.0-47.0) L Mean Corpuscular Volume 79 fL (79-100) Mean Corpuscular Hemoglobin 24 pg (25-35) L Mean Corpuscular Hemoglobin Concent 30 g/dL (31-37) L Red Cell Distribution Width 19.5 % (11.5-14.5) H Platelet Count 416 x10^3/uL (140-400) H Neutrophils (%) (Auto) 86 % (31-73) H Lymphocytes (%) (Auto) 3 % (24-48) L Monocytes (%) (Auto) 8 % (0-9) Eosinophils (%) (Auto) 2 % (0-3) Basophils (%) (Auto) 1 % (0-3) Neutrophils # (Auto) 8.2 x10^3uL (1.8-7.7) H Lymphocytes # (Auto) 0.3 x10^3/uL (1.0-4.8) L Monocytes # (Auto) 0.8 x10^3/uL (0.0-1.1) Eosinophils # (Auto) 0.2 x10^3/uL (0.0-0.7) Basophils # (Auto) 0.1 x10^3/uL (0.0-0.2) Sodium Level 141 mmol/L (136-145) Potassium Level 4.8 mmol/L (3.5-5.1) Chloride Level 102 mmol/L (98-107) Carbon Dioxide Level 33 mmol/L (21-32) H Anion Gap 6 (6-14) Blood Urea Nitrogen 33 mg/dL (7-20) H Creatinine 1.5 mg/dL (0.6-1.0) H Estimated GFR (Cockcroft-Gault) 33.8 BUN/Creatinine Ratio 22 (6-20) H Glucose Level 218 mg/dL (70-99) H Lactic Acid Level 1.2 mmol/L (0.4-2.0) Calcium Level 9.0 mg/dL (8.5-10.1) Total Bilirubin 0.4 mg/dL (0.2-1.0) Aspartate Amino Transferase (AST) 24 U/L (15-37) Alanine Aminotransferase (ALT) 25 U/L (14-59) Alkaline Phosphatase 131 U/L (46-116) H Troponin I Quantitative 0.092 ng/mL (0-0.055) H DA-Asr-L-Type Natriuretic Peptide 2515 pg/mL (0-449) H Total Protein 6.6 g/dL (6.4-8.2) Albumin 2.7 g/dL (3.4-5.0) L Albumin/Globulin Ratio 0.7 (1.0-1.7) L POC Venous pH 7.44 (7.32-7.42) H POC Venous pCO2 48 mmHg (41-51) POC Venous pO2 30 mmHg (20-40) Venous Blood HCO3 32 mmol/L (24-28) H POC Venous O2 Saturation (Mendel) 58 % POC FiO2 21 (EFRA WOODS APRN) EKG EKG EKG performed at 1419 by house respiratory therapy staff, shows a normal sinus rhythm without ectopy with a heart rate of 60 bpm, DC interval 0.256, QTc interval 0.480, no acute STEMI, no ACS, no acute ischemia appreciated, EKG interpreted by ED attending physician Dr. Pizano. (EFRA WOODS APRN) Radiology/Procedures Radiology/Procedures PATIENT: ONEYDA BOURGEOIS ACCOUNT: [id number] : 1945 LOCATION: ER AGE: 75 SEX: F EXAM STATUS: REG ER ORD. PHYSICIAN: EFRA WOODS APRN REASON: SHORT OF BREATH PROCEDURE: PORTABLE CHEST 1V EXAM: CHEST 1 VIEW History: Shortness of breath COMPARISON: None available. TECHNIQUE: Single portable radiograph of the chest FINDINGS: Mild cardiomegaly. Mild prominent bilateral interstitial lung markings likely mild congestive changes. Mild left lung base atelectasis or inf iltrate. IMPRESSION: 1. Mild congestive changes. 2. Mild left lung base atelectasis or infiltrate. Electronically signed by: Dillan Boston MD (03/19/2021 3:31 PM) [id number] DICTATED AND SIGNED BY: DILLAN BOSTON MD DATE: 03/19/21 1530 CC: EFRA WOODS APRN; VALENTÍN MCKEE MD ~MTH0 0 (EFRA WOODS APRN) Heart Score C/O Chest Pain: No Risk Factors: Risk Factors: DM, Current or recent (<one month) smoker, HTN, HLP, family history of CAD, obesity. Risk Scores: Risk Factors: DM, Current or recent (<one month) smoker, HTN, HLP, family history of CAD, obesity. (EFRA WOODS APRN) Course & Med Decision Making Course & Med Decision Making Pertinent Labs and Imaging studies reviewed. (See chart for details) 75-year-old female, vital signs reviewed, presents preserved concerning shortness of breath on exertion today. Patient recently diagnosed with pulmonary emboli and started on Eliquis, also had a recent cardioversion at [facility] by her student finance specialist Dr. Jarrell. Physical examination concerning for possible pulmonary process, a cardiopul monary work-up was started in the ER today. Patient's troponin elevated, considering non-STEMI however patient has no chest pains. Called and discussed case with patient's primary student finance specialist Dr. Jarrell who stated her minor elevation in troponinI is expected from her recent cardioversion he performed on her a few days ago, indicating her minor elevation in troponinI is unlikely a indication of an NSTEMI. Patient's chest x-ray did show new infiltrate left lower lobe, consistent with patient's physical examination, discussed this with patient, discussed calling her primary care physician Dr. Mckee to admit for left lower lobe pneumonia. Patient is amenable to this plan. Patient did receive a breathing treatment in the emergency department albuterol Atrovent nebulizer, patient states this did not seem to help her shortness of breath feeling. Patient is currently on 2 L nasal cannula related to O2 sat of 91% at rest. Called and discussed case with patient's primary care physician Dr. Duffy who agreed to admit patient to the ICU for left lower lobe pneumonia at [facility] with the information he was given by me. Ordered IV Rocephin followed by IV Levaquin per pharmacy dose for left lower lobe pneumonia treatment, Dr. Mckee has assumed patient care at this time. (EFRA WOODS APRN) Dragon Disclaimer Dragon Disclaimer This electronic medical record was generated, in whole or in part, using a voice recognition dictation system. (EFRA WOODS APRN) Departure Departure: Impression: Primary Impression: Dyspnea on exertion Additional Impressions: Elevated troponin Congestive heart failure (CHF) Disposition: ADMITTED INPATIENT Admitting Physician: Valentín Mckee (Admit to [facility] ICU for left lower lobe pneumonia, dyspnea on exertion to Dr. Mckee) (EFRA WOODS APRN) Condition: GUARDED Referrals: VALENTÍN MCKEE MD (PCP) Attending Signature Attending Signature I have reviewed the PA/ACCOUNT MANAGER SALES REPRESENTATIVE's note and plan of care. I was available for consultation as needed during the patient's visit in the emergency department. Labs and chest x-ray more consistent with CHF. Cannot fully exclude infectious etiology therefore antibiotics provided. I agree with the clinical impression, plan, and disposition. (EFRA PIZANO DO) Problem Qualifiers Additional Impressions: Congestive heart failure (CHF) Heart failure type: unspecified Heart failure chronicity: unspecified Qualified Codes: I50.9 - Heart failure, unspecified EFRA WOODS APRN March 19, 2021 16:11 EFRA PIZANO DO March 19, 2021 19:06
[2021-03-19] MEDS ORDERED: cefTRIAXone SODIUM 1 GM VIAL ONE (16:50)
[2021-03-19] MEDS ORDERED: IV NORMAL SALINE 50ML 50 ML ONE (16:50)
--- NOTE | 2021-03-19 18:49 | NUR ---
Admission note Pt admitted to ICU 2 at 1800 from ED via ems fro Pneumonia
[2021-03-19] MEDS ORDERED: ASPIRIN CHEWABLE 81 MG TABLET. PO ONE (19:15)
[2021-03-19] MEDS ORDERED: FUROSEMIDE 40 MG/4 ML VIAL IVP ONE (19:15)
[2021-03-19] MEDS ORDERED: PANT40TA6 PO (19:42)
[2021-03-19] MEDS ORDERED: LACT1CAP6 PO (19:42)
[2021-03-19] MEDS ORDERED: BUME1TAB3 PO (19:42)
[2021-03-19] MEDS ORDERED: VALS80TA28 PO (19:42)
[2021-03-19] MEDS ORDERED: METO-239 PO (19:42)
[2021-03-19] MEDS ORDERED: ZOLP5TAB PO (19:42)
[2021-03-19] MEDS ORDERED: BISMUTH SUBSALICYLATE 262 MG/15 ML ORAL.SUSP 236ML BOTTLE. PO PRN (20:00)
[2021-03-19] MEDS ORDERED: NON FORMULARY ITEM (Ipratropium/Albuterol Sulfate (Combivent Respimat Inhal) 1 INH) IH PRN (20:00)
[2021-03-19] MEDS ORDERED: diphenhydrAMINE HCL 25 MG CAPSULE PO PRN (20:00)
[2021-03-19] MEDS ORDERED: ONDANSETRON ODT 4 MG TAB.RAPDIS PO PRN (20:00)
[2021-03-19] MEDS ORDERED: CYCLOBENZAPRINE 10 MG TABLET. PO PRN (20:15)
[2021-03-19] MEDS ORDERED: MECLIZINE 12.5 MG TABLET. PO PRN (20:15)
[2021-03-19] MEDS: ATORVASTATIN CALCIUM 20 MG TABLET PO SCH (21:10)
[2021-03-19] MEDS: AMIODARONE HCL 200 MG TABLET. PO SCH (21:10)
[2021-03-19] MEDS: FLUoxetine HCL 20 MG CAPSULE PO SCH (21:10)
[2021-03-19] MEDS: LACTOBACILLUS RHAMNOSUS GG 1 CAPSULE. PO SCH (21:10)
[2021-03-19] MEDS: DOCUSATE SODIUM 100 MG CAPSULE PO SCH (21:10)
[2021-03-19] MEDS: GABAPENTIN 300 MG CAPSULE. PO SCH (21:10)
[2021-03-19] MEDS: buPROPion SR 150 MG TABLET.SA PO SCH (21:10)
[2021-03-19] MEDS: ZOLPIDEM 5 MG TABLET. PO PRN (21:10)
[2021-03-19] MEDS: APIXABAN 5 MG TABLET. PO SCH (21:11)
[2021-03-19] MEDS: SIMETHICONE 80 MG TAB.CHEW PO SCH (21:11)
[2021-03-19] MEDS: OMEGA-3 FATTY ACIDS/FISH OIL 1,000 MG CAPSULE. PO SCH (21:11)
[2021-03-19] MEDS: OXYBUTYNIN CHLORIDE 5 MG TABLET PO SCH (21:11)
[2021-03-19] MEDS: rOPINIRole 1 MG TABLET. PO SCH (21:11)
[2021-03-19] MEDS: INSULIN GLARGINE SYRINGE. SQ SCH (21:12)
[2021-03-19] MEDS: INSULIN LISPRO 300 UNITS/3 ML VIAL. SQ SCH (21:12)
[2021-03-19] MEDS: IPRATRPIUM/ALBUTEROL 0.5/2.5MG 3 ML NEBU. NEB SCH (21:13)
[2021-03-20] VITALS (20 sets, daily range): BP systolic 94–135; BP diastolic 38–92
--- NOTE | 2021-03-20 05:10 | NUR ---
Pt awake in bed at change of shift watching TV, recently admitted to unit just prior to shift change. Pt was just here as inpt (03/11-03/13) in ICU for Dyspnea and bradycardia, was sent to [facility] and was released yesterday according to records. Pt stated that she had a cardioversion done while there but is still having SOA/Dyspnea with exertion. Pt on Telemetry, SR to Tomas on monitor. Updated home medication list brought on to hospital by , new changes since last admission (03/11). Pt on Eliquis for VTE. Pt UTD on Covid vaccine. PT/OT/CM consulted. Box lunch given per request. Dr Cummins called for admit orders and restart of home medications. Pt with ostomy, just needs setup help. Pt took HS meds whole and without difficulty. Pt slept decently during night, was placed on 2L NC for hx of YUNIOR (noncompliant with home CPAP). Pt would desat down to lower 80's when sleeping soundly, but maintained above 90% when on 2L. Pt up to BSC 3 times during shift.
[2021-03-20 06:43] LABS: CALCIUM 8.6 mg/dL (8.5-10.1); CREATININE 1.4 mg/dL (0.6-1.0); GFR 36.6; POTASSIUM 4.1 mmol/L (3.5-5.1)
[2021-03-20] MEDS: IPRATRPIUM/ALBUTEROL 0.5/2.5MG 3 ML NEBU. NEB SCH ×4 (07:53→19:11)
[2021-03-20] MEDS: LACTOBACILLUS RHAMNOSUS GG 1 CAPSULE. PO SCH ×2 (08:24→20:45)
[2021-03-20] MEDS: SIMETHICONE 80 MG TAB.CHEW PO SCH ×2 (08:24→20:46)
[2021-03-20] MEDS: APIXABAN 5 MG TABLET. PO SCH ×2 (08:24→20:46)
[2021-03-20] MEDS: FLUTICASONE 50MCG/NASAL SPRAY 16GM BOTTLE. NS SCH (08:24)
[2021-03-20] MEDS: PANTOPRAZOLE 40 MG TABLET. PO SCH (08:24)
[2021-03-20] MEDS: buPROPion SR 150 MG TABLET.SA PO SCH ×2 (08:25→20:45)
[2021-03-20] MEDS: OXYBUTYNIN CHLORIDE 5 MG TABLET PO SCH ×3 (08:25→20:45)
[2021-03-20] MEDS: rOPINIRole 1 MG TABLET. PO SCH ×2 (08:25→20:46)
[2021-03-20] MEDS: GABAPENTIN 300 MG CAPSULE. PO SCH ×2 (08:25→20:46)
[2021-03-20] MEDS: OMEGA-3 FATTY ACIDS/FISH OIL 1,000 MG CAPSULE. PO SCH ×2 (08:25→20:45)
[2021-03-20] MEDS: METOPROLOL SUCC 24HR ER 25 MG TAB.ER.24H. PO SCH (08:25)
[2021-03-20] MEDS: MULTIVITAMIN with MINERAL TABLET. PO SCH (08:26)
[2021-03-20] MEDS: LOSARTAN 50 MG TABLET. PO SCH (08:26)
[2021-03-20] MEDS: FLUoxetine HCL 20 MG CAPSULE PO SCH ×2 (08:26→20:47)
[2021-03-20] MEDS: AMIODARONE HCL 200 MG TABLET. PO SCH ×2 (08:26→20:46)
[2021-03-20] MEDS: BUMETANIDE 1 MG TABLET PO SCH (08:27)
[2021-03-20] MEDS: INSULIN LISPRO 300 UNITS/3 ML VIAL. SQ SCH ×3 (08:30→17:30)
--- NOTE | 2021-03-20 10:27 | NUR ---
NURSING NOTE PT WAS ON BEDSIDE THIS AM UPON ASSESSMENT AND MEDICATION ADMINISTRATION. PT TAKES MEDS WHOLE. PT AT BEDSIDE. PT HAS OSTOMY THAT SHE TAKES CARE OF HERSELF, OSTOMY C/D/I. PT OXYGEN DOES DECREASE TO 83-89% WHEN SLEEPING IF HER OXYGEN IS OFF. PT REMINDED TO KEEP OXYGEN ON WHEN SLEEPING. PT STATES SHE HAS CARDIO APPT TOMORROW BUT STATES HE WANTS TO CANCEL IT BECAUSE HE DOESN'T WANT HER TO RUN AROUND AND GET WORN OUT. PT WALKED THIS AM WITH PHYSICAL THERAPY, PT IS WEAK AND SOA WITH EXERTION. PT CURRENTLY UP IN CHAIR. CASE MANAGEMENT AT BEDSIDE WITH PT AND PT , PT CURRENTLY HAS [facility]. CASE MANAGEMENT INVOLVED WITH DISCHARGE PLANNING FOR FUTURE. NISHANT MCCLENDON.
[2021-03-20] MEDS ORDERED: IPRATRPIUM/ALBUTEROL 0.5/2.5MG 3 ML NEBU. NEB SCH (20:00)
[2021-03-20] MEDS: ATORVASTATIN CALCIUM 20 MG TABLET PO SCH (20:45)
[2021-03-20] MEDS: DOCUSATE SODIUM 100 MG CAPSULE PO SCH (20:45)
[2021-03-20] MEDS: INSULIN GLARGINE SYRINGE. SQ SCH (20:45)
[2021-03-20] MEDS: ZOLPIDEM 5 MG TABLET. PO PRN (20:46)
[2021-03-21] VITALS (23 sets, daily range): BP systolic 91–133; BP diastolic 45–84
[2021-03-21] MEDS: IPRATRPIUM/ALBUTEROL 0.5/2.5MG 3 ML NEBU. NEB SCH ×4 (05:44→19:58)
--- NOTE | 2021-03-21 05:45 | NUR ---
Pt up to chair in room at change of shift watching TV. Pt took HS medications whole, without difficulty and ate HS snack independently. Pt stayed up to chair till she was ready for bed. Pt independent with ostomy care, just needs setup help. Pt slept off and on during night, wore 2L NC for hx of YUINOR. Pt assisted with bed bath and hair wash with cap this AM.
--- NOTE | 2021-03-21 06:04 | HP ---
ADMIT DATE: 03/19/2021 HISTORY OF PRESENT ILLNESS: A 75-year-old female who came in through the emergency room, increased shortness of breath while walking around home today, recently had an ablation for atrial fibrillation down at [facility] and the patient had a pulmonary emboli, started on Eliquis, also cardio conversion by Dr. Sanchez. The patient otherwise felt fine yesterday and then this morning began to have some shortness of air. The patient then cut her ____ of the bathroom and was extremely short of breath. The patient was called and told her to come into the emergency room where she was evaluated. The patient denied any chest pain, diaphoresis, nausea or vomiting. The patient otherwise was admitted to the hospital for further evaluation and treatment. What appeared to be acute exacerbation of chronic obstructive pulmonary disease with hypoxia versus some mild heart failure from the procedure itself. PAST MEDICAL HISTORY: Cataracts, peripheral neuropathy, headaches, heart attacks, congestive heart failure, coronary stent placement, hypercholesterolemia, DVT, COPD, sleep apnea, irritable bowel syndrome, noncompliance with CPAP, ____, gastroparesis, Crohn's disease, abdominal surgery, has an ileostomy with large part of her colon removed, endometriosis, osteoarthritis, orthopedic surgery, right rotator cuff repair, bilateral knee repair, diabetes, psychiatric, depression; blood disorders, bilateral hearing loss, anemia. IMMUNIZATIONS: For DPT, influenza and pneumococcal up to date. FAMILY HISTORY: Positive for ____, stroke and myocardial infarction. ALLERGIES: ADVERSE REACTIONS TO ADHESIVE TAPE, IODINE, LIRAGLUTIDE. SOCIAL HISTORY: No smoking, alcohol or drug use. Lives at home. The patient is a full code. REVIEW OF SYSTEMS: The patient denies any headaches, visual change, blurred vision, double vision. Does have shortness of breath, no chest pain. Denies abdominal pain. Denies any nausea, vomiting, melena, hematochezia or hematemesis. Neurologically, otherwise baseline for her except for her shortness of breath. PHYSICAL EXAMINATION: GENERAL: This is a pleasant white female, short of breath and also running low grade temperature. VITAL SIGNS: Blood pressure 120/40, respiratory rate 24, pulse 62, temperature up to 99 degrees. The patient was on 2 liters at 93% and on room air at 91%, just lying in bed. HEENT: Head was atraumatic, normocephalic. Eyes: PERRLA without jaundice. The mouth and throat were normal. NECK: Supple without thyromegaly. LUNGS: Diminished, poor movement of air, but could barely diminished. No rhonchi noted. CARDIOVASCULAR: Regular sinus rhythm, S1, S2. ABDOMEN: Protuberant, soft, nontender. No rebound or guarding. Positive bowel sounds. No hepatosplenomegaly was noted. EXTREMITIES: No clubbing, cyanosis, nor edema. NEUROLOGIC: The patient alert and oriented x3. LABORATORY DATA: White count 9, hemoglobin 9 and 32. Chemistries: 140, 4.1, 36, 1.4. Blood sugars elevated, so was her troponin at 0.080. Called Dr. Sanchez, and he said the elevated troponins were from the recent ablation. BNP elevated at 2500. BUN and creatinine 33 and 1.5, otherwise unremarkable. Blood gases, must have been a venous stick, showed diminishment of the oxygen ____. The patient's chest x-ray showed mild congestive changes and mild left lung, possible infiltrative process for which she was started on IV antibiotic therapy of Rocephin and Levaquin. Otherwise, the patient made good progress during the rest of her hospitalization. She will be continued to be monitored carefully with IV antibiotic therapy, aggressive pulmonary toilet and make further evaluation on her per those results. IMPRESSION: Acute respiratory failure, possible systemic inflammatory response syndrome, pneumonia of unspecified etiology, possibly post-procedural, recent ablation for atrial fibrillation, chronic kidney disease stage 3B, type 2 diabetes, morbid obesity, ileostomy, thrombocytosis, severe protein malnutrition, chronic congestive heart failure. PLAN: Continue in ICU. Continue on IV antibiotic therapy. Monitor fluids and make further adjustment on her medications as needed. ERYN/MAGGY/ALLAN DR: ERYN/cici TID: [id number]
[2021-03-21] MEDS: INSULIN LISPRO 300 UNITS/3 ML VIAL. SQ SCH ×3 (08:23→17:00)
[2021-03-21] MEDS: rOPINIRole 1 MG TABLET. PO SCH ×2 (08:24→21:17)
[2021-03-21] MEDS: OMEGA-3 FATTY ACIDS/FISH OIL 1,000 MG CAPSULE. PO SCH ×2 (08:24→21:16)
[2021-03-21] MEDS: buPROPion SR 150 MG TABLET.SA PO SCH ×2 (08:24→21:17)
[2021-03-21] MEDS: MULTIVITAMIN with MINERAL TABLET. PO SCH (08:24)
[2021-03-21] MEDS: FLUTICASONE 50MCG/NASAL SPRAY 16GM BOTTLE. NS SCH (08:24)
[2021-03-21] MEDS: LACTOBACILLUS RHAMNOSUS GG 1 CAPSULE. PO SCH ×2 (08:24→21:17)
[2021-03-21] MEDS: FLUoxetine HCL 20 MG CAPSULE PO SCH ×2 (08:25→21:16)
[2021-03-21] MEDS: PANTOPRAZOLE 40 MG TABLET. PO SCH (08:25)
[2021-03-21] MEDS: SIMETHICONE 80 MG TAB.CHEW PO SCH ×2 (08:25→21:16)
[2021-03-21] MEDS: APIXABAN 5 MG TABLET. PO SCH ×2 (08:25→21:17)
[2021-03-21] MEDS: GABAPENTIN 300 MG CAPSULE. PO SCH ×2 (08:26→21:17)
[2021-03-21] MEDS: BUMETANIDE 1 MG TABLET PO SCH (08:27)
[2021-03-21] MEDS: AMIODARONE HCL 200 MG TABLET. PO SCH ×2 (08:27→21:18)
[2021-03-21] MEDS: LOSARTAN 50 MG TABLET. PO SCH (08:28)
[2021-03-21] MEDS: METOPROLOL SUCC 24HR ER 25 MG TAB.ER.24H. PO SCH (08:29)
[2021-03-21] MEDS: OXYBUTYNIN CHLORIDE 5 MG TABLET PO SCH ×3 (08:31→21:16)
[2021-03-21] MEDS: traMADol 50 MG TABLET PO PRN ×2 (09:42→21:24)
[2021-03-21] MEDS ORDERED: MORPHINE SULFATE 2 MG/ML DISP.SYRIN. IV PRN (11:00)
--- NOTE | 2021-03-21 17:45 | NUR ---
Shift Summary Patient was more lethargic throughout shift, not wanting to eat much of her meals, having hallucinations of in corner of room. Patient does know where she is, time, and date when asked periodically throughout the shift. Patient does request to go home. This nurse educated patient that she needs to build her strength up in order to go home and care after herself. Patient stated she understood. Patient changed ostomy bag and waffle with minimal assistance.
[2021-03-21] MEDS: DOCUSATE SODIUM 100 MG CAPSULE PO SCH (21:16)
[2021-03-21] MEDS: ATORVASTATIN CALCIUM 20 MG TABLET PO SCH (21:16)
[2021-03-21] MEDS: INSULIN GLARGINE SYRINGE. SQ SCH (21:18)
[2021-03-22] VITALS (24 sets, daily range): BP systolic 83–166; BP diastolic 44–88
--- NOTE | 2021-03-22 03:16 | PN ---
SUBJECTIVE: A 75-year-old female came in with increased shortness of breath, had recent cardio conversion done down at [facility] by Dr. Sanchez. The patient had been placed on Eliquis, but the patient began to have increased shortness of breath. The patient actually has been transferred down there for that reason, said she was doing well until a day or so before admission at this time because of her acute respiratory failure. She is somewhat improved, although this morning she was hurting all over her body. OBJECTIVE: VITAL SIGNS: Her blood pressure 122/62, respiratory rate anywhere from 27 down to 10 (NC), pulse 63, afebrile, 99% on 2 liters, which is markedly improved. GENERAL: The patient is otherwise is alert, but very sleepy, falls asleep, is not using her CPAP. CARDIOVASCULAR: Regular sinus rhythm, S1, S2, without murmur, rub, thrill, or extra heart sounds. ABDOMEN: Soft, nontender. No rebounding. EXTREMITIES: No clubbing, cyanosis. Just generalized arthritic problems, could be related to the low pressure. In any case, the patient is making good progress overall. We will continue to monitor her. I talked to her about placement of the patient after she leaves this institution. IMPRESSION: Therefore, acute respiratory failure, possible systemic inflammatory response syndrome, pneumonia of unspecified etiology, post-procedural elevation of troponin, recent cardio conversion for atrial fibrillation, chronic kidney disease stage IIIB, type 2 diabetes, morbid obesity, ileostomy for Crohn's, thrombocytosis, severe protein malnutrition, chronic congestive heart failure. PLAN: Continue with protocol of IV antibiotic therapy, aggressive pulmonary toilet, and mild diuresis. NOLA DR: Elisa TID: [id number]
[2021-03-22] MEDS: IPRATRPIUM/ALBUTEROL 0.5/2.5MG 3 ML NEBU. NEB SCH ×4 (05:41→20:34)
[2021-03-22] MEDS: buPROPion SR 150 MG TABLET.SA PO SCH ×2 (10:02→21:00)
[2021-03-22] MEDS: OMEGA-3 FATTY ACIDS/FISH OIL 1,000 MG CAPSULE. PO SCH ×2 (10:02→21:00)
[2021-03-22] MEDS: LACTOBACILLUS RHAMNOSUS GG 1 CAPSULE. PO SCH ×2 (10:03→21:00)
[2021-03-22] MEDS: FLUoxetine HCL 20 MG CAPSULE PO SCH ×2 (10:03→21:00)
[2021-03-22] MEDS: rOPINIRole 1 MG TABLET. PO SCH ×2 (10:03→21:00)
[2021-03-22] MEDS: GABAPENTIN 300 MG CAPSULE. PO SCH ×2 (10:03→21:00)
[2021-03-22] MEDS: OXYBUTYNIN CHLORIDE 5 MG TABLET PO SCH ×3 (10:03→21:00)
[2021-03-22] MEDS: APIXABAN 5 MG TABLET. PO SCH ×2 (10:03→21:00)
[2021-03-22] MEDS: MULTIVITAMIN with MINERAL TABLET. PO SCH (10:03)
[2021-03-22] MEDS: PANTOPRAZOLE 40 MG TABLET. PO SCH (10:04)
[2021-03-22] MEDS: METOPROLOL SUCC 24HR ER 25 MG TAB.ER.24H. PO SCH (10:04)
[2021-03-22] MEDS: BUMETANIDE 1 MG TABLET PO SCH (10:04)
[2021-03-22] MEDS: SIMETHICONE 80 MG TAB.CHEW PO SCH ×2 (10:04→21:00)
[2021-03-22] MEDS: AMIODARONE HCL 200 MG TABLET. PO SCH ×2 (10:05→21:00)
[2021-03-22] MEDS: INSULIN LISPRO 300 UNITS/3 ML VIAL. SQ SCH ×3 (10:05→18:40)
[2021-03-22] MEDS: LOSARTAN 50 MG TABLET. PO SCH (10:05)
[2021-03-22] MEDS: FLUTICASONE 50MCG/NASAL SPRAY 16GM BOTTLE. NS SCH (11:03)
[2021-03-22 13:50] LABS: BASO % 1 % (0-3); EOS % 1 % (0-3); HEMOGLOBIN 7.8 g/dL (12.0-15.5); LYMPH # 0.6 x10^3/uL (1.0-4.8); LYMPH % 7 % (24-48); MEAN CORPUSCULAR HEMOGLOBIN 24 pg (25-35); MEAN CORPUSCULAR HGB CONC 30 g/dL (31-37); MEAN CORPUSCULAR VOLUME 79 fL (79-100); MONO # 1.1 x10^3/uL (0.0-1.1); MONO % 12 % (0-9); NEUT # 7.2 x10^3uL (1.8-7.7); NEUT % 80 % (31-73); PLATELET COUNT 357 x10^3/uL (140-400); RED BLOOD COUNT 3.28 x10^6/uL (3.50-5.40); RED CELL DISTRIBUTION WIDTH 19.4 % (11.5-14.5)
[2021-03-22 14:00] LABS: CALCIUM 8.3 mg/dL (8.5-10.1); CREATININE 1.5 mg/dL (0.6-1.0); GFR 33.8; POTASSIUM 4.1 mmol/L (3.5-5.1)
--- NOTE | 2021-03-22 17:06 | RAD ---
EXAM: Chest, single view. HISTORY: Shortness of breath. COMPARISON: 03/19/2021 FINDINGS: A frontal view of the chest is obtained. There is left lower lobe infiltrate or atelectasis . There is no pleural effusion or pneumothorax. There is a stable cardiac silhouette. IMPRESSION: Left lower lobe infiltrate or atelectasis. Electronically signed by: Ginger Maldonado MD (03/22/2021 5:04 PM) [facility]
--- NOTE | 2021-03-22 20:06 | NUR ---
Pt's blood sugar is 76. [employer] SYSTEMS ENGINEER accidentally hit rejected.
[2021-03-22] MEDS ORDERED: DEXTROSE 50% 25 GM / 50ML DISP.SYRIN. IV PRN (20:15)
[2021-03-22] MEDS ORDERED: FUROSEMIDE 20 MG/2 ML VIAL IVP ONE (20:30)
[2021-03-22 20:38] LABS: BGAS PH 7.29 (7.35-7.45)
--- NOTE | 2021-03-22 20:52 | NUR ---
Pt is abdominal breathing and sats are 91% on 4 liters. RT called to assess pt. MD notified and orders received. Placed renae and pt tolerated well. ABG's were drawn and pt tolerated well. MD notified of critical results of abg's and orders were recieved to place pt on bipap. RT at bedside. Call light in place. Bed alarm on pt.
--- NOTE | 2021-03-22 20:55 | NUR ---
stated "It's ok to hold night time medications tonight."
[2021-03-22] MEDS: ATORVASTATIN CALCIUM 20 MG TABLET PO SCH (21:00)
[2021-03-22] MEDS: DOCUSATE SODIUM 100 MG CAPSULE PO SCH (21:00)
[2021-03-23] VITALS (23 sets, daily range): BP systolic 93–187; BP diastolic 41–82
--- NOTE | 2021-03-23 01:16 | PN ---
ICU bed #2. SUBJECTIVE: The patient is clinically, doing better. Oxygen saturation is staying up at 95% on 2 liters, blood pressure 120/46, respiration 18, pulse 60. The patient seems to be more agitated and hallucinatory at times. We were trying to give her some other medication such as ___. OBJECTIVE: CHEST: The patient's lungs are diminished but clear than they have been. CARDIOVASCULAR: Regular sinus rhythm. ABDOMEN: Soft, nontender. Good oxygen saturation. EXTREMITIES: No clubbing, cyanosis, nor edema. IMPRESSION: Therefore, the pneumonia of unspecified etiology, post-ablation for atrial fibrillation, anemia of unknown etiology, possibly related to the fact that she had been on anticoagulation therapy, type 2 diabetes, chronic kidney disease 3B, morbid obesity, ileostomy, Crohn's disease, thrombocytosis, and severe protein malnutrition. PLAN: We will continue to monitor her, recheck her fecal Hemoccults and make further assessment on her as indicated to review her and evaluate her. NICKY DR: Elisa TID: [id number]
[2021-03-23] MEDS ORDERED: DEXTROSE 50% 25 GM / 50ML DISP.SYRIN. IV PRN (01:45)
[2021-03-23] MEDS: IPRATRPIUM/ALBUTEROL 0.5/2.5MG 3 ML NEBU. NEB SCH ×4 (05:24→20:32)
--- NOTE | 2021-03-23 05:29 | NUR ---
When the pt first put the bipap on pt states, "Put those in the hamper," referring about the blankets. In the middle of the night after several hours of the bipap being on pt states, "Take the mask off." After reassuring pt that the mask needs to be left on pt fell back asleep.
[2021-03-23] MEDS ORDERED: DEXAMETHASONE SOD PHOS 4 MG/ML VIAL. IVP ONE (06:45)
[2021-03-23 07:12] LABS: BASO % 1 % (0-3); EOS # 0.1 x10^3/uL (0.0-0.7); EOS % 1 % (0-3); HEMATOCRIT 28.1 % (36.0-47.0); HEMOGLOBIN 8.5 g/dL (12.0-15.5); LYMPH # 0.4 x10^3/uL (1.0-4.8); LYMPH % 5 % (24-48); MEAN CORPUSCULAR HEMOGLOBIN 24 pg (25-35); MEAN CORPUSCULAR HGB CONC 30 g/dL (31-37); MEAN CORPUSCULAR VOLUME 79 fL (79-100); MONO # 0.9 x10^3/uL (0.0-1.1); MONO % 11 % (0-9); NEUT # 6.9 x10^3uL (1.8-7.7); NEUT % 82 % (31-73); PLATELET COUNT 378 x10^3/uL (140-400); RED BLOOD COUNT 3.54 x10^6/uL (3.50-5.40); RED CELL DISTRIBUTION WIDTH 19.3 % (11.5-14.5); WHITE BLOOD COUNT 8.4 x10^3/uL (4.0-11.0)
[2021-03-23 09:30] LABS: FECAL OB PT NEGATIVE (NEG)
[2021-03-23] MEDS ORDERED: guaiFENesin/CODEINE 100mg/10mg 5 ML LIQUID PO PRN (11:45)
[2021-03-23] MEDS ORDERED: MAALOX:LIDO:APAP 6:2:1 ORAL SUSPENSION 180 ML BOTTLE. PO PRN (11:45)
[2021-03-23] MEDS ORDERED: IPRATRPIUM/ALBUTEROL 0.5/2.5MG 3 ML NEBU. NEB SCH (12:00)
[2021-03-23] MEDS: rOPINIRole 1 MG TABLET. PO SCH ×2 (12:18→20:32)
[2021-03-23] MEDS: AMIODARONE HCL 200 MG TABLET. PO SCH ×2 (12:18→20:34)
[2021-03-23] MEDS: OMEGA-3 FATTY ACIDS/FISH OIL 1,000 MG CAPSULE. PO SCH ×2 (12:18→20:32)
[2021-03-23] MEDS: OXYBUTYNIN CHLORIDE 5 MG TABLET PO SCH ×3 (12:18→20:32)
[2021-03-23] MEDS: APIXABAN 5 MG TABLET. PO SCH ×2 (12:19→20:33)
[2021-03-23] MEDS: GABAPENTIN 300 MG CAPSULE. PO SCH ×2 (12:19→20:33)
[2021-03-23] MEDS: BUMETANIDE 1 MG TABLET PO SCH (12:19)
[2021-03-23] MEDS: MULTIVITAMIN with MINERAL TABLET. PO SCH (12:19)
[2021-03-23] MEDS: PANTOPRAZOLE 40 MG TABLET. PO SCH (12:20)
[2021-03-23] MEDS: METOPROLOL SUCC 24HR ER 25 MG TAB.ER.24H. PO SCH (12:20)
[2021-03-23] MEDS: LOSARTAN 50 MG TABLET. PO SCH (12:20)
[2021-03-23] MEDS: SIMETHICONE 80 MG TAB.CHEW PO SCH ×2 (12:20→20:32)
[2021-03-23] MEDS: LACTOBACILLUS RHAMNOSUS GG 1 CAPSULE. PO SCH ×2 (12:21→20:32)
[2021-03-23] MEDS: FLUoxetine HCL 20 MG CAPSULE PO SCH ×2 (12:28→20:33)
[2021-03-23] MEDS: FLUTICASONE 50MCG/NASAL SPRAY 16GM BOTTLE. NS SCH (13:10)
[2021-03-23] MEDS: DEXAMETHASONE SOD PHOS 4 MG/ML VIAL. PO SCH ×2 (14:31→21:44)
[2021-03-23] MEDS: NYSTATIN 100,000 UNITS/ML ORAL SUSPENSION 60ML BOTTLE. SWSW SCH ×2 (14:31→20:31)
[2021-03-23] MEDS: DOCUSATE SODIUM 100 MG CAPSULE PO SCH (20:32)
[2021-03-23] MEDS: ATORVASTATIN CALCIUM 20 MG TABLET PO SCH (20:32)
[2021-03-23] MEDS: INSULIN GLARGINE SYRINGE. SQ SCH (20:33)
[2021-03-23 21:13] LABS: FECAL OB PT NEGATIVE (NEG)
[2021-03-23] MEDS: traMADol 50 MG TABLET PO PRN (22:16)
[2021-03-23] MEDS: ZOLPIDEM 5 MG TABLET. PO PRN (22:16)
--- NOTE | 2021-03-23 23:12 | PN ---
SUBJECTIVE: A 75-year-old female admitted with pneumonia and acute respiratory failure. The patient is doing better. We placed her on BiPAP because of CO2 retention and has made an excellent recovery with just 1 liter on BiPAP up to 97%, blood pressure 160/70, respiratory rate 22, pulse 60, afebrile. The patient is more alert and had a good night's rest, a little bit confused when she first worked up, but right now she has coherent sentences, appropriate in that regard. She has not complained of any pain or anything abnormal, although she is extremely weak. She still has quite a bit of wheezing in her lung atwood and a wet cough. She still continues on IV antibiotic therapy. Her recent chest x-ray did show improvement ____ my interpretation and compared to her previous one. There was improvement and decrease in the left lower lobe infiltrate. OBJECTIVE: LUNGS: The patient's otherwise lungs show no other expiratory wheezes. HEART: Regular sinus rhythm. ABDOMEN: Soft, nontender. Ileostomy working. EXTREMITIES: No clubbing, cyanosis, nor edema. NEUROLOGIC: Alert and little bit tired and weak, but other than that making good progress, but still requires close monitoring BiPAP. Respiratory therapy. She complains of some pain in her mouth, probably yeast infection when examined from all the antibiotics she is getting, put her on some nystatin for that and will continue to monitor her accordingly on all these issues. ASSESSMENT: Pneumonia, unspecified etiology post-cardio conversion for atrial fibrillation, anemia of unknown etiology, type 2 diabetes, chronic kidney disease stage IIIB, morbid obesity, ileostomy, history of Crohn's disease, oral moniliasis, thrombocytosis, and severe protein malnutrition. PLAN: Continue on antibiotics. Encourage her dietary intake and PT and OT. ERYN/GINGER/THEA DR: ERYN/cici TID: [id number]
[2021-03-24] VITALS (19 sets, daily range): BP systolic 103–157; BP diastolic 49–87
[2021-03-24] MEDS: IPRATRPIUM/ALBUTEROL 0.5/2.5MG 3 ML NEBU. NEB SCH ×4 (05:07→20:00)
[2021-03-24] MEDS: DEXAMETHASONE SOD PHOS 4 MG/ML VIAL. PO SCH ×2 (05:31→09:38)
--- NOTE | 2021-03-24 06:30 | NUR ---
Pt awake in bed watching TV at change of shift. Pt A&Ox4, mentation is much clearer then past few shift (wore Bipap most of the day per report). Pt took HS medications whole, without difficulty and ate yogurt for HS snack independently. Dr Ward called regarding blood sugar, insulin restarted. Pt assisted with ostomy care. Pt slept great during night (Hollis given), wore Bipap from 2230 till after change of shift.
[2021-03-24 07:07] LABS: CALCIUM 8.5 mg/dL (8.5-10.1); CREATININE 1.3 mg/dL (0.6-1.0); GFR 39.8; POTASSIUM 4.2 mmol/L (3.5-5.1)
[2021-03-24 07:11] LABS: BASO % 0 % (0-3); EOS % 0 % (0-3); HEMATOCRIT 29.8 % (36.0-47.0); HEMOGLOBIN 9.1 g/dL (12.0-15.5); LYMPH # 0.3 x10^3/uL (1.0-4.8); LYMPH % 5 % (24-48); MEAN CORPUSCULAR HEMOGLOBIN 24 pg (25-35); MEAN CORPUSCULAR HGB CONC 30 g/dL (31-37); MEAN CORPUSCULAR VOLUME 78 fL (79-100); MONO # 0.3 x10^3/uL (0.0-1.1); MONO % 6 % (0-9); NEUT # 4.9 x10^3uL (1.8-7.7); NEUT % 89 % (31-73); PLATELET COUNT 367 x10^3/uL (140-400); RED CELL DISTRIBUTION WIDTH 19.6 % (11.5-14.5); WHITE BLOOD COUNT 5.5 x10^3/uL (4.0-11.0)
[2021-03-24] MEDS: INSULIN LISPRO 300 UNITS/3 ML VIAL. SQ SCH ×3 (08:00→17:00)
[2021-03-24] MEDS: BUMETANIDE 1 MG TABLET PO SCH (09:00)
[2021-03-24] MEDS: FLUTICASONE 50MCG/NASAL SPRAY 16GM BOTTLE. NS SCH (09:00)
[2021-03-24] MEDS: SIMETHICONE 80 MG TAB.CHEW PO SCH (09:38)
[2021-03-24] MEDS: GABAPENTIN 300 MG CAPSULE. PO SCH (09:38)
[2021-03-24] MEDS: OMEGA-3 FATTY ACIDS/FISH OIL 1,000 MG CAPSULE. PO SCH (09:38)
[2021-03-24] MEDS: LOSARTAN 50 MG TABLET. PO SCH (09:39)
[2021-03-24] MEDS: rOPINIRole 1 MG TABLET. PO SCH (09:39)
[2021-03-24] MEDS: METOPROLOL SUCC 24HR ER 25 MG TAB.ER.24H. PO SCH (09:39)
[2021-03-24] MEDS: AMIODARONE HCL 200 MG TABLET. PO SCH (09:40)
[2021-03-24] MEDS: PANTOPRAZOLE 40 MG TABLET. PO SCH (09:41)
[2021-03-24] MEDS: FLUoxetine HCL 20 MG CAPSULE PO SCH (09:41)
[2021-03-24] MEDS: OXYBUTYNIN CHLORIDE 5 MG TABLET PO SCH ×2 (09:41→15:04)
[2021-03-24] MEDS: MULTIVITAMIN with MINERAL TABLET. PO SCH (09:41)
[2021-03-24] MEDS: LACTOBACILLUS RHAMNOSUS GG 1 CAPSULE. PO SCH (09:41)
[2021-03-24] MEDS: APIXABAN 5 MG TABLET. PO SCH (09:41)
[2021-03-24] MEDS: NYSTATIN 100,000 UNITS/ML ORAL SUSPENSION 60ML BOTTLE. SWSW SCH ×2 (09:42→15:04)
--- NOTE | 2021-03-24 10:46 | PN ---
DATE: 03/24/2021 SUBJECTIVE: A 75-year-old female resting comfortably on her BiPAP and oxygenating very well there. Apparently had some restlessness during the night, but still extremely weak and will get PT/OT to evaluate which she is capable of doing. She will probably still need a BiPAP or CPAP or Trilogy as an outpatient and arrangements are being made to send her to the [facility] for continued rehab care. The patient's pneumonia seems to be absolving as her respiratory efforts seemed to be much more relaxed and not as struggling as she was before. PHYSICAL EXAMINATION: VITAL SIGNS: Her blood pressure 153/70, respiratory rate 18, pulse 60. She is afebrile, 95% on BiPAP. The patient's BiPAP is set at 2 liters and set at 16 cm on positive airway pressure, inspiratory 6 cm airway pressure and inspiratory phase x 1 second, ventilator respiratory rise 0.2 seconds. Total respiratory rate 22 breaths per minute, tidal volume 578. Minute ventilation 13 liters per minute. Peak leak 20 liters per minute, in her face mask small, BiPAP high pressure alarm set at 42 cm, BiPAP low pressure set at 4 cm. GENERAL: The patient is more alert, has better color. LUNGS: Diminished but clearer than they have been, unable to hear the wheezing we heard yesterday. CARDIOVASCULAR: Regular sinus rhythm. ABDOMEN: Soft. Ileostomy working well. EXTREMITIES: No clubbing, cyanosis, nor edema. NEUROLOGIC: Baseline, still very weak. Will need to continue with PT, OT and make further assessment there. LABORATORY DATA: Sodium and potassium 139 and 4.2, BUN and creatinine 34 and 1.3. Hemoglobin actually has come up some. Hemoglobin 9.1, hematocrit 30, white count 5. ASSESSMENT: Pneumonia of unspecified etiology post cardio-conversion for atrial fibrillation, anemia of unknown etiology; history of Crohn's disease, type 2 diabetes, chronic kidney disease stage IIIA, acute on top of chronic kidney disease, ileostomy, thrombocytosis, severe protein malnutrition, some history of hallucinations although that seems to be improved with the Zyprexa at night. Fecal Hemoccults were negative. PLAN: Continue on antibiotics. Hopefully, ready for transfer to a nursing facility for continued rehab here in the next day or two and will need to be using a ____ Trilogy for her so she does not retain CO2. Otherwise, continue to advance her diet and continue with PT, OT, respiratory therapy, antibiotic and excellent nursing care. ERYN/CURRY/[facility] [place] DR: ERYN/cici TID: [id number]
[2021-03-24 17:40] LABS: BGAS PH 7.4 (7.35-7.45)
[2021-03-25] MEDS: LACTOBACILLUS RHAMNOSUS GG 1 CAPSULE. PO SCH ×2 (00:09→09:00)
[2021-03-25] MEDS: rOPINIRole 1 MG TABLET. PO SCH ×2 (00:09→09:22)
[2021-03-25] MEDS: GABAPENTIN 300 MG CAPSULE. PO SCH ×2 (00:09→09:23)
[2021-03-25] MEDS: SIMETHICONE 80 MG TAB.CHEW PO SCH ×2 (00:09→09:21)
[2021-03-25] MEDS: AMIODARONE HCL 200 MG TABLET. PO SCH ×2 (00:09→09:23)
[2021-03-25] MEDS: DOCUSATE SODIUM 100 MG CAPSULE PO SCH (00:10)
[2021-03-25] MEDS: OXYBUTYNIN CHLORIDE 5 MG TABLET PO SCH ×3 (00:10→13:26)
[2021-03-25] MEDS: FLUoxetine HCL 20 MG CAPSULE PO SCH ×2 (00:10→09:21)
[2021-03-25] MEDS: APIXABAN 5 MG TABLET. PO SCH ×2 (00:10→09:22)
[2021-03-25] MEDS: ATORVASTATIN CALCIUM 20 MG TABLET PO SCH (00:10)
[2021-03-25] MEDS: OMEGA-3 FATTY ACIDS/FISH OIL 1,000 MG CAPSULE. PO SCH ×2 (00:10→09:21)
[2021-03-25] MEDS: DEXAMETHASONE SOD PHOS 4 MG/ML VIAL. PO SCH ×2 (00:11→09:23)
[2021-03-25] MEDS: traMADol 50 MG TABLET PO PRN (00:11)
[2021-03-25] MEDS: NYSTATIN 100,000 UNITS/ML ORAL SUSPENSION 60ML BOTTLE. SWSW SCH ×3 (00:12→13:26)
[2021-03-25] MEDS: INSULIN GLARGINE SYRINGE. SQ SCH (00:12)
[2021-03-25 03:48] VITALS: BP 114/76
[2021-03-25] MEDS: IPRATRPIUM/ALBUTEROL 0.5/2.5MG 3 ML NEBU. NEB SCH ×2 (05:07→09:41)
--- NOTE | 2021-03-25 05:19 | NUR ---
[facility] was called about pts trillogy and RT publications manager called back and will give the message to Nilda to call back around 8am.
[2021-03-25 06:38] VITALS: BP 131/70
[2021-03-25] MEDS: BUMETANIDE 1 MG TABLET PO SCH (09:00)
[2021-03-25] MEDS: INSULIN LISPRO 300 UNITS/3 ML VIAL. SQ SCH ×2 (09:20→11:55)
[2021-03-25] MEDS: FLUTICASONE 50MCG/NASAL SPRAY 16GM BOTTLE. NS SCH (09:21)
[2021-03-25] MEDS: METOPROLOL SUCC 24HR ER 25 MG TAB.ER.24H. PO SCH (09:22)
[2021-03-25] MEDS: LOSARTAN 50 MG TABLET. PO SCH (09:22)
[2021-03-25] MEDS: PANTOPRAZOLE 40 MG TABLET. PO SCH (09:23)
[2021-03-25] MEDS: MULTIVITAMIN with MINERAL TABLET. PO SCH (09:23)
--- NOTE | 2021-03-25 10:01 | DISCH ---
DISCHARGE ORDERS DISCHARGE DATE: March 25, 2021 FINAL DIAGNOSIS pneumonia acute respiratory failure COPD exacerbation CONDITION AT DISCHARGE: Stable Code Status: Full SNF STAY <30 DAYS: Yes HOSPICE: No HOSPICE EVALUATE & TREAT: No ADMIT TO LTAC: No POST DISCHARGE ORDERS: ACTIVITY ORDERS: Resume previous activity WEIGHT BEARING STATUS: No restrictions DIET AFTER DISCHARGE: ADA WOUND/INCISION CARE: No wound care needed OTHER ORDERS: Physical & Occupational Therapy Evaluate & treat CHECKS AFTER DISCHARGE: CHECKS AFTER DISCHARGE: Check blood press - daily, Check blood sugar, ac/hs TREATMENT/EQUIPMENT ORDERS: ADAPTIVE EQUIPMENT NEEDED: None RESPIRATORY EQUIPMENT: BiPAP DISCHARGE MEDICATIONS: Home Meds Reported Medications Lactobacillus Acidophilus (PROBIOTIC) 1 Each Capsule, 1 CAP PO BID for Probiotic LAST DOSE GIVEN: DATE: TIME: NEXT DOSE DUE: DATE: TIME: 03/19/21 Zolpidem Tartrate (AMBIEN) 5 Mg Tablet, 5 MG PO PRN QHS PRN for INSOMNIA LAST DOSE GIVEN: DATE: TIME: NEXT DOSE DUE: DATE: TIME: 03/19/21 Pantoprazole Sodium (PANTOPRAZOLE SODIUM) 40 Mg Tablet.dr, 40 MG PO DAILY for GERD LAST DOSE GIVEN: DATE: TIME: NEXT DOSE DUE: DATE: TIME: 03/19/21 Metoprolol Succinate (METOPROLOL SUCCINATE ( XL )) 25 Mg Tab.er.24h, 25 MG PO DAILY for FOR HYPERTENSION LAST DOSE GIVEN: DATE: TIME: NEXT DOSE DUE: DATE: TIME: 03/19/21 Valsartan (Valsartan) 80 Mg Tablet, 80 MG PO DAILY for Heart Failure LAST DOSE GIVEN: DATE: TIME: NEXT DOSE DUE: DATE: TIME: 03/19/21 Bumetanide (BUMETANIDE) 1 Mg Tablet, 1 MG PO DAILY for Heart Failure LAST DOSE GIVEN: DATE: TIME: NEXT DOSE DUE: DATE: TIME: 03/19/21 Insulin Lispro (Insulin Lispro Kwikpen U-100) 100 Unit/1 Ml Insuln.pen, 10 UNITS SQ TID for Diabetes LAST DOSE GIVEN: DATE: TIME: NEXT DOSE DUE: DATE: TIME: 03/11/21 Amiodarone Hcl (AMIODARONE HCL) 200 Mg Tablet, 200 MG PO BID for Heart Rhythm LAST DOSE GIVEN: DATE: TIME: NEXT DOSE DUE: DATE: TIME: 03/11/21 Cyclobenzaprine Hcl (CYCLOBENZAPRINE HCL) 5 Mg Tablet, 5 MG PO TID PRN for MUSCLE PAIN LAST DOSE GIVEN: DATE: TIME: NEXT DOSE DUE: DATE: TIME: 03/11/21 Fluticasone Propionate (FLUTICASONE PROPIONATE NASAL SPRAY) 16 Gm [place].susp, 2 SPRAY NS DAILY for Allergy Symptoms LAST DOSE GIVEN: DATE: TIME: NEXT DOSE DUE: DATE: TIME: 03/11/21 Diphenhydramine Hcl (BENADRYL) 25 Mg Capsule, 25 MG PO PRN Q6HRS PRN for ITCHING LAST DOSE GIVEN: DATE: TIME: NEXT DOSE DUE: DATE: TIME: 03/11/21 Bismuth Subsalicylate (PEPTO-BISMOL) 262 Mg/15 Ml Oral.susp, 15 ML PO PRN Q6HRS PRN for DYSPEPSIA LAST DOSE GIVEN: DATE: TIME: NEXT DOSE DUE: DATE: TIME: 03/11/21 Atorvastatin Calcium (LIPITOR) 40 Mg Tablet, 40 MG PO QHS for FOR CHOLESTEROL LAST DOSE GIVEN: DATE: TIME: NEXT DOSE DUE: DATE: TIME: 03/11/21 Apixaban (ELIQUIS) 5 Mg Tablet, 5 MG PO BID for Blood thinner LAST DOSE GIVEN: DATE: TIME: NEXT DOSE DUE: DATE: TIME: 03/11/21 Multivitamin (One-Daily Multi-Vitamin) 1 Each Tablet, 1 TAB PO DAILY for Supplement LAST DOSE GIVEN: DATE: TIME: NEXT DOSE DUE: DATE: TIME: 09/20/20 [place]-3 Fatty Acids/Fish Oil (FISH OIL 1,000 MG SOFTGEL) 1 Each Capsule, 2000 MG PO BID for Supplement LAST DOSE GIVEN: DATE: TIME: NEXT DOSE DUE: DATE: TIME: 09/15/20 Meclizine Hcl (MECLIZINE HCL) 25 Mg Tablet, 25 MG PO PRN Q8HRS PRN for Dizziness LAST DOSE GIVEN: DATE: TIME: NEXT DOSE DUE: DATE: TIME: 09/20/19 Ondansetron (ONDANSETRON ODT) 4 Mg Tab.rapdis, 4 MG PO PRN Q12HR PRN for NAUSEA LAST DOSE GIVEN: DATE: TIME: NEXT DOSE DUE: DATE: TIME: 09/20/19 Docusate Sodium (STOOL SOFTENER) 100 Mg Capsule, 100 MG PO HS for stooler softner LAST DOSE GIVEN: DATE: TIME: NEXT DOSE DUE: DATE: TIME: 09/20/19 Simethicone (GAS RELIEF) 125 Mg Tab.chew, 125 MG PO BID for stomach bloating LAST DOSE GIVEN: DATE: TIME: NEXT DOSE DUE: DATE: TIME: 09/20/19 Insulin Glargine,Hum.rec.anlog (LANTUS SOLOSTAR) 100 Unit/1 Ml Insuln.pen, 30 UNIT SQ HS for Diabetes LAST DOSE GIVEN: DATE: TIME: NEXT DOSE DUE: DATE: TIME: 06/16/18 Ropinirole Hcl (REQUIP) 1 Mg Tablet, 1 MG PO BID for Restless Legs LAST DOSE GIVEN: DATE: TIME: NEXT DOSE DUE: DATE: TIME: 06/16/18 Gabapentin (GABAPENTIN ) 300 Mg Capsule, 600 MG PO BID for Nerve Pain LAST DOSE GIVEN: DATE: TIME: NEXT DOSE DUE: DATE: TIME: 06/16/18 Fluoxetine Hcl (FLUOXETINE HCL) 20 Mg Capsule, 20 MG PO BID for Depression LAST DOSE GIVEN: DATE: TIME: NEXT DOSE DUE: DATE: TIME: 06/16/18 Tolterodine Tartrate (DETROL LA) 2 Mg Cap.er.24h, 2 MG PO BID for Bladder Spasm LAST DOSE GIVEN: DATE: TIME: NEXT DOSE DUE: DATE: TIME: 06/16/18 Ipratropium/Albuterol Sulfate (COMBIVENT RESPIMAT INHAL) 4 Gm Aer.w.adap, 1 INH IH PRN Q6HRS PRN for SHORTNESS OF BREATH LAST DOSE GIVEN: DATE: TIME: NEXT DOSE DUE: DATE: TIME: 04/25/14 Tramadol Hcl (TRAMADOL HCL) 50 Mg Tablet, 50 MG PO BID PRN for PAIN LAST DOSE GIVEN: DATE: TIME: NEXT DOSE DUE: DATE: TIME: 04/25/14 Discontinued Reported Medications Bupropion Hcl (BUPROPION HCL SR) 150 Mg Tablet.er, 150 MG PO BID for Depression LAST DOSE GIVEN: DATE: TIME: NEXT DOSE DUE: DATE: TIME: 03/11/21 LUIS MCKEE MD March 25, 2021 10:01
[2021-03-25 11:15] VITALS: BP 110/67
--- NOTE | 2021-03-25 15:08 | NUR ---
Discharge Summary Patient [facility]. Belonging sent home with . Patient denies any questions, invasive lines discontinued and patient wheeled out. Discharge packet handed to transport team.
== END 2021-03-25 14:50 | DRG 177 ==
LOC: ER 14:05 → ICU 15:52 → 1 SOUTH 03-25 06:02
PROVIDERS: ADMIT Family Medicine; ATTEND Family Medicine
PROC: 5A09357 Assistance with Respiratory Ventilation, Less than 24 Consecutive Hours, Continuous Positive Airway Pressure (ICD-10-PCS; principal; 2021-03-22)
PROC: 5A09357 Assistance with Respiratory Ventilation, Less than 24 Consecutive Hours, Continuous Positive Airway Pressure (ICD-10-PCS; 2021-03-23)
PROC: 5A09357 Assistance with Respiratory Ventilation, Less than 24 Consecutive Hours, Continuous Positive Airway Pressure (ICD-10-PCS; 2021-03-24)
DX: J15.6 Pneumonia due to other Gram-negative bacteria (principal); E43 Unspecified severe protein-calorie malnutrition; J96.00 Acute respiratory failure, unspecified whether with hypoxia or hypercapnia; I13.0 Hypertensive heart and chronic kidney disease with heart failure and stage 1 through stage 4 chronic kidney disease, or unspecified chronic kidney disease; J44.0 Chronic obstructive pulmonary disease with (acute) lower respiratory infection; I50.32 Chronic diastolic (congestive) heart failure; K50.90 Crohn's disease, unspecified, without complications; J98.11 Atelectasis; E87.2 Acidosis; B37.0 Candidal stomatitis; R65.10 Systemic inflammatory response syndrome (SIRS) of non-infectious origin without acute organ dysfunction; J15.9 Unspecified bacterial pneumonia; E11.42 Type 2 diabetes mellitus with diabetic polyneuropathy; E78.00 Pure hypercholesterolemia, unspecified; N18.32 Chronic kidney disease, stage 3b; F32.9 Major depressive disorder, single episode, unspecified; K31.84 Gastroparesis; I48.91 Unspecified atrial fibrillation; H91.93 Unspecified hearing loss, bilateral; D64.9 Anemia, unspecified; E11.22 Type 2 diabetes mellitus with diabetic chronic kidney disease; H26.9 Unspecified cataract; E11.36 Type 2 diabetes mellitus with diabetic cataract; E11.43 Type 2 diabetes mellitus with diabetic autonomic (poly)neuropathy; E11.65 Type 2 diabetes mellitus with hyperglycemia; F41.9 Anxiety disorder, unspecified; E66.01 Morbid (severe) obesity due to excess calories; M19.90 Unspecified osteoarthritis, unspecified site; R45.1 Restlessness and agitation; Z87.891 Personal history of nicotine dependence; Z86.711 Personal history of pulmonary embolism; Z68.35 Body mass index [BMI] 35.0-35.9, adult; Z95.5 Presence of coronary angioplasty implant and graft; Z91.19 Patient's noncompliance with other medical treatment and regimen; Z82.49 Family history of ischemic heart disease and other diseases of the circulatory system; Z82.3 Family history of stroke; Z79.01 Long term (current) use of anticoagulants; Z86.718 Personal history of other venous thrombosis and embolism; Z91.041 Radiographic dye allergy status; Z88.8 Allergy status to other drugs, medicaments and biological substances; Z91.048 Other nonmedicinal substance allergy status
CPT/HCPCS: 36415; 36600; 71045; 80048; 80053; 82274; 82803; 82947; 83540; 83550; 83605; 83880; 84484; 85025; 87086; 93005; 94640; 94660; 94760; 96365; 96366; 96367; J0696; J1100; J1815; J1940; J1956; Q0163; 97110; 97116; 97530; 97535; 99285-25

== ENCOUNTER 2021-04-15 09:59 | Emergency (ER) | payer MEDICARE, OTHER ==
[~2021-04-15] VITALS: Ht 160 cm; Wt 96.4 kg
[~2021-04-15 09:59] MED LIST changes: +BUME1TAB3 PO; -DOCU-150 PO; +DOCU-158 PO; +ERGO500090 PO; +FAMO-153 PO; -FAMO10TA69 PO; +LACT1CAP6 PO; -OMEP40CA45; -OMEP40CA45 PO; +OMEP40CA7; +OMEP40CA7 PO; +PANT40TA6 PO; +VALS80TA28 PO
[2021-04-15 10:09] VITALS: BP 119/55
--- NOTE | 2021-04-15 10:18 | PHYS DOC ---
Past History Past Medical History: Anxiety, COPD, Depression, Diabetes, High Cholesterol, Hypertension, Other Additional Past Medical Histor: crohns, PULMONARY EMBOLISM Past Surgical History: Other Additional Past Surgical Histo: ILIOSTOMY Smoking: Quit Greater Than 1 Year Alcohol Use: None Drug Use: None Adult General Chief Complaint Chief Complaint: WOUND CHECK HPI HPI Patient is a 75-year-old female presenting via POV from local alf for left lower leg laceration. Patient reports hitting her left anterior cordova greater than 48 hours ago at alf and suffered a laceration. This was extensively cleaned, her tetanus was already up-to-date and patient was receiving antibiotics for other illnesses at that time, she made the decision not to have any intervention performed. As such, Steri-Strips were applied to close laceration. Today, visited patient and was concerned given that some Steri-Strips had fallen off and laceration was not healing as quick as he thought it would prompting him to transport her via POV to our facility for evaluation Review of Systems Review of Systems Fourteen body systems of review of systems have been reviewed. See HPI for pertinent positives and negative responses, other diop all other systems are negative, non-pertinent or non-contributory Allergies Allergies Allergies Coded Allergies Type Severity Reaction Last Updated Verified liraglutide Allergy Severe 12/26/20 Yes adhesive tape Allergy Intermediate 09/20/19 Yes iodine Allergy Mild Hives 04/25/14 No Physical Exam Physical Exam Constitutional: Well developed, well nourished, no acute distress, non-toxic appearance. HENT: Normocephalic, atraumatic, bilateral external ears normal, oropharynx moist, no oral exudates, nose normal. Eyes: PERRLA, EOMI, conjunctiva normal, no discharge. Neck: Normal range of motion, no tenderness, supple, no stridor. Cardiovascular: Heart rate regular, sinus rhythm, no murmurs rubs or gallops Lungs & Thorax: Bilateral breath sounds clear to auscultation Abdomen: Bowel sounds normal, soft and, no tenderness, no masses, no pulsatile masses. Nonsurgical abdomen, no peritoneal signs Skin: Warm, dry, no erythema, no rash. Healing laceration to left anterior cordova that is linear 4.5 cm in length with no involvement past subcutaneous tissue such as muscles/tendons/ligaments etc. no streaking, crepitus, fluctuant mass or expressible exudate Back: No tenderness, no CVA tenderness. Extremities: No tenderness, no cyanosis, no clubbing, ROM intact, no edema. Neurologic: Alert and oriented X 3, normal motor & sensory function, no focal deficits noted. Psychologic: Affect normal, judgement normal, mood normal. Current Patient Data Vital Signs Vital Signs Date Time Temp Pulse Resp B/P (MAP) Pulse Ox O2 Delivery O2 Flow Rate FiO2 04/15/21 10:09 98.4 74 16 119/55 (76) 97 Room Air Vital Signs Date Time Temp Pulse Resp B/P (MAP) Pulse Ox O2 Delivery O2 Flow Rate FiO2 04/15/21 10:09 98.4 74 16 119/55 (76) 97 Room Air EKG EKG [] Radiology/Procedures Radiology/Procedures [] Heart Score C/O Chest Pain: No Risk Factors: Risk Factors: DM, Current or recent (<one month) smoker, HTN, HLP, family history of CAD, obesity. Risk Scores: Risk Factors: DM, Current or recent (<one month) smoker, HTN, HLP, family history of CAD, obesity. Course & Med Decision Making Course & Med Decision Making Discussed with the patient all findings. I discussed most likely diagnosis of laceration that likely would have benefited from suture repair but is well outside of window of this being done. Her tetanus is up-to-date. There is no obvious signs or symptoms of secondary infection but given extent of laceration, joint decision made to apply triple antibiotic ointment today. Patient is a poor historian, it is unknown if she is on any current antibiotic therapy, discussed with need to review ER visit today and recent laceration with alf physician to determine appropriate course of care in outpatient setting. As such, I stressed need for close outpatient follow-up to review today's ER visit. Strict return precautions were also discussed at length with good understanding by patient and . Patient and voiced understanding and agreement with the plan. Patient and knows to come back for repeat evaluation if concerning signs or symptoms present prior to outpatient follow-up. Hemodynamically stable, ambulatory and well-appearing at time of disposition. Dragon Disclaimer Dragon Disclaimer This electronic medical record was generated, in whole or in part, using a voice recognition dictation system. Departure Departure: Impression: Primary Impression: Laceration of left lower leg Disposition: HOME / SELF CARE / HOMELESS Condition: STABLE Referrals: LUIS MCKEE MD (PCP) Additional Instructions: You were seen for a laceration. Keep the area clean and dry. As discussed, you are presenting well outside the indicated time in which sutures, anny or other repair methods could be utilized. As such, continued supportive care practices it is advised. Your wound was cleaned at our facility, Steri-Strips were reapplied and triple antibiotic ointment was applied. You need to return back to your alf and discuss ER visit today with your alf phys ician. Given your complicated recent medical history, antibiotics by mouth might be required if you are not already on them. Return to the ED immediately if you develop any signs of infection like increased pain, redness, fever, or purulent (pus) drainage. Do not take baths, submerge the wound, or use a hot tub for a prolonged amount of time until your wound is fully healed EDUARDO BARAKAT DO Apr 15, 2021 10:18
[2021-04-15] MEDS ORDERED: BACITRACIN ZINC TOPICAL OINT PACKET. TP ONE (10:30)
== END 2021-04-15 10:41 | disposition home health service (06) ==
LOC: ER 09:59
DX: S81.812A Laceration without foreign body, left lower leg, initial encounter (principal); F41.9 Anxiety disorder, unspecified; J44.9 Chronic obstructive pulmonary disease, unspecified; F32.9 Major depressive disorder, single episode, unspecified; E11.9 Type 2 diabetes mellitus without complications; E78.00 Pure hypercholesterolemia, unspecified; I10 Essential (primary) hypertension; Z87.891 Personal history of nicotine dependence; Z88.8 Allergy status to other drugs, medicaments and biological substances; W22.8XXA Striking against or struck by other objects, initial encounter; Y93.89 Activity, other specified; Y92.89 Other specified places as the place of occurrence of the external cause; Y99.8 Other external cause status
CPT/HCPCS: 99282

== ENCOUNTER 2021-05-09 15:30 | Inpatient (IN) | payer MEDICARE, OTHER ==
[~2021-05-09] VITALS: Ht 160 cm; Wt 96.4 kg
[2021-05-09] MEDS ORDERED: ACETAMINOPHEN 650 MG SUPP.RECT. PR PRN (16:15)
[2021-05-09] MEDS ORDERED: ONDANSETRON PF 4 MG/2 ML VIAL. IVP PRN (16:15)
[2021-05-09] MEDS ORDERED: HALOPERIDOL LACT 5 MG/ML VIAL. IVP PRN (16:15)
[2021-05-09] MEDS ORDERED: IV NORMAL SALINE 1,000ML 1,000 ML IV SCH (16:15)
[2021-05-09 16:23] VITALS: BP 110/70
--- NOTE | 2021-05-09 16:32 | NUR ---
The patient, ONEYDA BOURGEOIS, 75 y/o, F admitted by LUIS MCKEE MD, was given written information regarding hospital policies, unit procedures and contact persons. Valuables were checked and VS taken, please see chart.
[2021-05-09] MEDS ORDERED: SCOPOLAMINE 1.5MG PATCH. TD SCH (17:00)
[2021-05-09] MEDS: MORPHINE SULFATE 30 MG/30 ML 30 ML IV PRN (17:03)
[2021-05-09] MEDS ORDERED: ZOLPIDEM 5 MG TABLET. PO PRN (18:30)
[2021-05-09] MEDS ORDERED: NON FORMULARY ITEM (Ipratropium/Albuterol Sulfate (Combivent Respimat Inhal) 1 INH) IH PRN (18:30)
[2021-05-09] MEDS ORDERED: traMADol 50 MG TABLET PO PRN (18:30)
[2021-05-09] MEDS ORDERED: BISMUTH SUBSALICYLATE 262 MG/15 ML ORAL.SUSP 236ML BOTTLE. PO PRN (18:30)
[2021-05-09] MEDS ORDERED: IPRATRPIUM/ALBUTEROL 0.5/2.5MG 3 ML NEBU. NEB PRN (20:00)
[2021-05-09 20:30] VITALS: BP 103/58
[2021-05-09] MEDS: rOPINIRole 1 MG TABLET. PO SCH (21:00)
[2021-05-09] MEDS: AMIODARONE HCL 200 MG TABLET. PO SCH (21:00)
[2021-05-09] MEDS ORDERED: INSULIN GLARGINE SYRINGE. SQ SCH (21:00)
[2021-05-09] MEDS: APIXABAN 2.5 MG TABLET PO SCH (21:00)
[2021-05-09] MEDS: LACTOBACILLUS RHAMNOSUS GG 1 CAPSULE. PO SCH (21:00)
--- NOTE | 2021-05-10 02:41 | PN ---
DATE: 05/09/2021 SUBJECTIVE: A 75-year-old female in with a change in mental status. The patient was markedly confused, had low oxygen saturation. The patient was admitted for multiplicity of medical problems, shortness of breath and hypotension. She stopped down her blood pressure pills. OBJECTIVE: VITAL SIGNS: Blood pressure has come up to 110/70, respiratory rate 20, pulse 70, afebrile. She is on 3 liters, BiPAP as well as Trilogy for retention of CO2. GENERAL: The patient otherwise seems to be resting fairly comfortably, a little bit more awake today than she has been. The patient is alert. LUNGS: Diminished, poor movement of air, but basically clearer than they have been. CARDIOVASCULAR: Basically stable. NEUROLOGIC: Baseline. ABDOMEN: Protuberant, soft. Ileostomy. The patient still has stool in the bag, but moving her bowels. There was also a possibility of a small-bowel obstruction, but she is moving stool through it and she is advancing her diet to a soft diet as well. EXTREMITIES: With +1 pitting edema. IMPRESSION: Metabolic change in mental status, severe protein malnutrition, possible small-bowel obstruction, chronic kidney disease stage IIIB, chronic renal failure, acute on top of chronic hyperkalemia, anemia of chronic disease, type 2 diabetes, morbid obesity, CO2 retention, ileostomy. BHAVANI DR: ERYN/cici TID: [id number]
[2021-05-10 07:49] VITALS: BP 96/58
[2021-05-10] MEDS: INSULIN LISPRO 300 UNITS/3 ML VIAL. SQ SCH ×2 (08:00→11:47)
[2021-05-10] MEDS: AMIODARONE HCL 200 MG TABLET. PO SCH (08:12)
[2021-05-10] MEDS: APIXABAN 2.5 MG TABLET PO SCH (08:13)
[2021-05-10] MEDS: rOPINIRole 1 MG TABLET. PO SCH (08:13)
[2021-05-10] MEDS: MORPHINE SULFATE 30 MG/30 ML 30 ML IV PRN (08:13)
[2021-05-10] MEDS: LACTOBACILLUS RHAMNOSUS GG 1 CAPSULE. PO SCH (08:13)
[2021-05-10] MEDS ORDERED: PANTOPRAZOLE 40 MG TABLET. PO SCH (09:00)
[2021-05-10] MEDS ORDERED: FLUTICASONE 50MCG/NASAL SPRAY 16GM BOTTLE. NS SCH (09:00)
--- NOTE | 2021-05-10 19:14 | DS ---
DATE OF DISCHARGE: 05/10/2021 HOSPITAL COURSE: A 75-year-old female who has had a long history of numerous medical issues that include respiratory problems, Crohn's disease, ileostomy, coronary artery disease, chronic atrial fibrillation with RVR, hearing loss. Has had a history of heart failure, coronary artery disease and the like. The patient was brought in for possible small-bowel obstruction and respiratory distress and hypotension. The patient was taken off her blood pressure pills and given additional fluids. The patient overall remained basically stable; however, this morning, the patient who has no code apparently her heart stopped and her renal function was deteriorating showing that shut down her overall medical condition. Family did not wish any further aggressive therapy done such as dialysis for transfer. The patient was comfortably and quietly in her sleep. IMPRESSION: Acute respiratory failure, acute on top of chronic renal failure, stage IV. Metabolic change in mental status, severe-protein malnutrition, small-bowel obstruction, partial chronic kidney disease stage IV, as indicated chronic renal failure on top of acute renal failure, hyperkalemia, anemia of chronic disease, Crohn's disease, type 2 diabetes, morbid obesity, CO2 retention. Ileostomy. CHATO DR: Elisa TID: [id number]
== END 2021-05-10 14:07 | DRG 189 ==
LOC: 1 SOUTH 15:30
PROVIDERS: ADMIT Family Medicine; ATTEND Family Medicine
PROC: 5A09357 Assistance with Respiratory Ventilation, Less than 24 Consecutive Hours, Continuous Positive Airway Pressure (ICD-10-PCS; principal; 2021-05-09)
DX: J96.00 Acute respiratory failure, unspecified whether with hypoxia or hypercapnia (principal); E43 Unspecified severe protein-calorie malnutrition; E87.2 Acidosis; I48.20 Chronic atrial fibrillation, unspecified; K50.90 Crohn's disease, unspecified, without complications; N17.9 Acute kidney failure, unspecified; N18.4 Chronic kidney disease, stage 4 (severe); D63.8 Anemia in other chronic diseases classified elsewhere; E11.22 Type 2 diabetes mellitus with diabetic chronic kidney disease; E66.01 Morbid (severe) obesity due to excess calories; E87.5 Hyperkalemia; I25.10 Atherosclerotic heart disease of native coronary artery without angina pectoris; I50.9 Heart failure, unspecified; Z68.37 Body mass index [BMI] 37.0-37.9, adult; Z79.899 Other long term (current) drug therapy; I95.9 Hypotension, unspecified
CPT/HCPCS: J2270; Q5005; J7030